=== PATIENT | female | born 1935 | race Caucasian/White ===

== ENCOUNTER → 2017-01-23 | Outpatient (CLI) | payer MEDICARE, BC ==
[~2017-01-23] MED LIST: ASCO500T25 PO; ASPI-39 PO; ATOR10TA PO; CALC1TAB PO; CARV25TA PO; DIGO250T12 PO; GABA-586 PO; GLUC100018 PO; LEVO500S PO; LEVO75CA PO; LOSA50TA6 PO; MULT-658 PO; OMEG-33 PO; VITA1CAP7 PO; WARF4TAB7 PO
--- NOTE | 2017-01-23 15:25 | RAD ---
CT of the chest and abdomen without contrast, 01/23/2017: History: Epigastric pain No oral or IV contrast was administered for this study as requested. This limits evaluation of the abdominal structures. There is mild calcific plaquing of the thoracic aorta without evidence of aneurysm. A mitral valve prosthesis is in place. There are mildly enlarged AP window and precarinal lymph nodes, unchanged since 10/06/2016. This would favor a benign etiology. There is mild pleural thickening posteriorly on both sides which is unchanged and is probably due to scarring. There are a few scattered parenchymal scars. No pulmonary mass or significant consolidation is seen. There appears to be a trace amount of pleural fluid in the posterior gutters. The unopacified liver is unremarkable. No gallbladder abnormality is seen. The pancreas is unremarkable. The spleen is of normal size. The kidneys show no evidence of obstruction. There is mild aortic calcific plaquing without evidence of aneurysm. No abdominal adenopathy is seen. The mesenteric vascularity appears to be somewhat congested. Colonic diverticula are identified, most numerous in the sigmoid and descending colon. The pelvis was not completely included on these abdominal scans. No free fluid or free air is evident in the abdomen. Mild to moderate scattered degenerative changes are present in the spine. IMPRESSION: 1. Stable mild mediastinal adenopathy. 2. Bilateral pleural/parenchymal scarring. 3. Trace amount of bilateral pleural fluid. 4. Colonic diverticulosis. PQRS Compliance Statement: One or more of the following individualized dose reduction techniques were utilized for this examination: 1. Automated exposure control 2. Adjustment of the mA and/or kV according to patient size 3. Use of iterative reconstruction technique
== END | disposition home or self-care (01) ==
LOC: CT 13:43
PROVIDERS: ATTEND Family Medicine
DX: K57.30 Diverticulosis of large intestine without perforation or abscess without bleeding (principal); J98.4 Other disorders of lung; R10.13 Epigastric pain
CPT/HCPCS: 71250; 74150

== ENCOUNTER → 2017-02-18 | Outpatient (CLI) | payer MEDICARE, BC ==
--- NOTE | 2017-02-18 12:39 | RAD ---
Radionuclide gastric emptying study, 02/18/2017: History: Epigastric pain, gastroparesis The study was performed utilizing a solid test meal radiolabeled with 2.2 mCi of technetium 99m sulfur colloid. The time to half emptying of the test meal from the patient's stomach was calculated at 85 minutes. A normal T1/2 is 60 minutes +/- 30 minutes. IMPRESSION: Normal gastric emptying time
== END | disposition home or self-care (01) ==
LOC: NM 09:35
PROVIDERS: ATTEND Internal Medicine Gastroenterology
DX: K31.84 Gastroparesis (principal); R10.13 Epigastric pain
CPT/HCPCS: 78264; A9541

== ENCOUNTER → 2017-02-23 | Outpatient (CLI) | payer MEDICARE, BC ==
[~2017-02-23] MED LIST changes: +ASCO-72 PO; -ASCO500T25 PO; +IOHEXOL 300 MG/ML 75 ML VIAL. IV ONE
[2017-02-23 09:42] LABS: CREATININE 0.8 mg/dL (0.6-1.0); GFR 68.8
--- NOTE | 2017-02-23 10:55 | RAD ---
Indication: Epigastric pain. Axial imaging through the abdomen and pelvis was performed after the administration of intravenous contrast and utilizing the CT angiography protocol. Multiplanar, 3-D and MIP reformations were also performed. The lung bases are clear. The liver and gallbladder are unremarkable. The pancreas and spleen are unremarkable. No adrenal mass is detected. The kidneys are unremarkable. The aorta is normal caliber. There are calcified plaques throughout the aorta. The origins to the celiac and SMA are widely patent. The AMY is patent. The renal arteries are patent. Both common and external iliac arteries are patent. No free fluid is identified. There is some mild circumferential wall thickening involving the descending colon near the junction with the sigmoid with surrounding inflammation. Findings are suspicious for acute diverticulitis. There is significant diverticular disease of the sigmoid colon as well. No fluid collection or abscess is identified. No bowel obstruction is seen. The bladder is unremarkable. Impression: Findings suggestive of acute diverticulitis at the junction of the descending colon and sigmoid. There is circumferential wall thickening at this location. Underlying mass cannot be entirely excluded and endoscopy may be useful after course of therapy. No abscess formation or bowel obstruction is identified. PQRS Compliance Statement: One or more of the following individualized dose reduction techniques were utilized for this examination: 1. Automated exposure control 2. Adjustment of the mA and/or kV according to patient size 3. Use of iterative reconstruction technique
== END | disposition home or self-care (01) ==
LOC: CT 08:51
PROVIDERS: ATTEND Internal Medicine Gastroenterology
DX: R10.13 Epigastric pain (principal)
CPT/HCPCS: 36415; 74177; 82565; 84520; Q9967

== ENCOUNTER → 2017-05-22 | Outpatient (CLI) | payer MEDICARE, BC ==
[~2017-05-22] MED LIST changes: -IOHEXOL 300 MG/ML 75 ML VIAL. IV ONE
--- NOTE | 2017-05-22 10:43 | RAD ---
DATE: 05/22/2017 EXAM: MAMMO RAIN SCREENING BILATERAL HISTORY: Routine screening COMPARISON: 05/19/2016 This study was interpreted with the benefit of Computerized Aided Detection (CAD). The breast parenchyma shows scattered fibroglandular densities. Breast parenchyma level B. FINDINGS: 2-D and 3-D tomosynthesis imaging was performed in CC and MLO projections. No new or enlarging breast densities are seen. Benign type calcifications are present. No suspicious microcalcifications have developed. IMPRESSION: Stable mammograms without evidence of malignancy. BI-RADS CATEGORY: 2 BENIGN FINDING(S) RECOMMENDED FOLLOW-UP: 12M 12 MONTH FOLLOW-UP PQRS compliance statement: Patient information was entered into a reminder system with a target due date for the next mammogram. Mammography is a sensitive method for finding small breast cancers, but it does not detect them all and is not a substitute for careful clinical examination. A negative mammogram does not negate a clinically suspicious finding and should not result in delay in biopsying a clinically suspicious abnormality. "Our facility is accredited by the [employer] Mammography Program."
== END | disposition home or self-care (01) ==
LOC: MAMMO 07:45
PROVIDERS: ATTEND Family Medicine
DX: Z12.31 Encounter for screening mammogram for malignant neoplasm of breast (principal)
CPT/HCPCS: 77063; G0202; 77067

== ENCOUNTER 2017-06-22 12:50 | Emergency (ER) | payer MEDICARE, BC ==
[~2017-06-22] VITALS: Ht 170.2 cm; Wt 67.1 kg
[2017-06-22] MEDS ORDERED: IV NORMAL SALINE 500ML 500 ML ONE (13:04)
[2017-06-22] MEDS ORDERED: MORPHINE SULFATE 4 MG/ML DISP.SYRIN. IV ONE (13:15)
[2017-06-22] MEDS ORDERED: IV NORMAL SALINE 500ML 500 ML IV ONE (13:15)
--- NOTE | 2017-06-22 13:17 | PHYS DOC ---
Past History Past Medical History: A-Fib, Arrhythmia, Constipation, Diverticulitis, Diabetes , GERD, High Cholesterol, Heart Disease, Hypertension, Hypothyroid Past Surgical History: Hysterectomy, Other Smoking: Non-smoker Alcohol Use: None Drug Use: None Adult General Chief Complaint Chief Complaint: ABDOMINAL PAIN HPI HPI Patient is a 81-year-old presents complaints of upper abdominal pain has been going on for 2 days and is progressively getting worse. Today got worse after eating. She's had occasional pains in the past but not this severe. She denies any vomiting, abdominal distention, rashes, chills, diarrhea or UTI symptoms. Patient denies any sick contacts or trauma. Review of Systems Review of Systems Constitutional: Denies fever or chills [] HENT: Denies nasal congestion or sore throat [] Respiratory: Denies cough or shortness of breath [] Cardiovascular: No chest pain GI: Denies nausea, vomiting, bloody stools or diarrhea. Yes to upper abdominal pain : Denies dysuria or hematuria [] Musculoskeletal: Denies back pain or joint pain [] Integument: Denies rash or skin lesions [] Neurologic: Denies headache, focal weakness or sensory changes [] Current Medications Current Medications Current Medications Medications (Trade) Dose Ordered Sig/Monty Start Time Stop Time Status Last Admin Dose Admin Morphine Sulfate (Morphine 4mg Syringe) 4 mg 1X ONCE 06/22/17 13:15 06/22/17 13:16 UNV Sodium Chloride 500 ml @ As Directed STK-MED ONCE 06/22/17 13:04 06/22/17 13:05 DC Allergies Allergies Allergies Coded Allergies Type Severity Reaction Last Updated Verified aspartame Allergy Intermediate 02/27/14 Yes latex Allergy Intermediate 02/26/14 Yes sulfur Allergy Intermediate 02/26/14 Yes titanium Allergy Intermediate 02/26/14 Yes Uncoded Allergies Type Severity Reaction Last Updated Verified TAPE Allergy Intermediate 02/26/14 Physical Exam Physical Exam Constitutional: Well developed, well nourished, mild distress, non-toxic appearance. [] HENT: Normocephalic, atraumatic, bilateral external ears normal, oropharynx dry , no oral exudates, nose normal. [] Eyes: P EOMI, conjunctiva normal, no discharge. [] Neck: Normal range of motion, no tenderness, supple, no stridor. No JVD, no LAD , no meningeal signs Cardiovascular:Heart rate regular rhythm, no murmur, equal pulses, normal perfusion Lungs & Thorax: Bilateral breath sounds clear to auscultation, no tachypnea Abdomen: Bowel sounds normal, soft, no masses, no pulsatile masses. Epigastric and right upper quadrant tenderness to palpation without guarding or rebound Skin: Warm, dry, no erythema, no rash. [] Back: No tenderness, no CVA tenderness. [] Extremities: No tenderness, no cyanosis, no DVT, ROM intact, no edema. [] Neurologic: Alert and oriented X 3, normal motor function, no focal deficits noted. [] Psychologic: Affect normal, judgement normal, mood normal. [] EKG EKG 1305 atrial fribrillation, no stemi, 65[] Radiology/Procedures Radiology/Procedures CT and US reports reviewed and copy of both given to the pt to discuss with her doctor. The possible need for referral to GI and urology has been discussed with pt and family who were present. All agree to follow up as directed.[] Course & Med Decision Making Course & Med Decision Making Pertinent Labs and Imaging studies reviewed. (See chart for details) pt states she has taken augmentin before 151 pt able to ambulate to bathroom [] Dragon Disclaimer Dragon Disclaimer This chart was dictated in whole or in part using Voice Recognition software in a busy, high-work load, and often noisy Emergency Department environment. It may contain unintended and wholly unrecognized errors or omissions. Departure Departure: Impression: Primary Impression: Abdominal pain Additional Impressions: Diverticulitis Hematuria Disposition: 01 HOME, SELF-CARE Condition: STABLE Referrals: SAUL ANN (PCP) Please follow with your doctor for recheck and reevaluation in 2-4 days. Please discussed the results of the CT scan and the ultrasound with your doctor. You may a referral to a GI doctor for endoscopy to rule out a mass. Also if your hematuria does not resolve you will need a referral to a urologist for a scope of urinary bladder Patient Instructions: Abdominal Pain (Nonspecific), Diverticulitis, Hematuria, Adult Scripts Amoxicillin/Potassium Clav (AUGMENTIN 500-125 TABLET) 1 Each Tablet 1 TAB PO BID, #14 TAB Prov: Earl BO MD 06/22/17 Hydrocodone Bit/Acetaminophen (NORCO 5-325 TABLET) 1 Each Tablet 1 TAB PO PRN Q6HRS Y for PAIN for 5 Days, #14 TAB 0 Refills Prov: Earl BO MD 06/22/17 Problem Qualifiers Earl BO MD Jun 22, 2017 13:17
[2017-06-22 13:40] LABS: BASO % 0 % (0-3); EOS # 0.1 x10^3/uL (0.0-0.7); EOS % 1 % (0-3); HEMATOCRIT 39.9 % (36.0-47.0); HEMOGLOBIN 13.4 g/dL (12.0-15.5); LYMPH # 1.2 x10^3/uL (1.0-4.8); LYMPH % 20 % (24-48); MEAN CORPUSCULAR HEMOGLOBIN 31 pg (25-35); MEAN CORPUSCULAR HGB CONC 34 g/dL (31-37); MEAN CORPUSCULAR VOLUME 91 fL (79-100); MONO # 0.4 x10^3/uL (0.0-1.1); MONO % 7 % (0-9); NEUT # 4.4 x10^3uL (1.8-7.7); NEUT % 71 % (31-73); PLATELET COUNT 179 x10^3/uL (140-400); RED BLOOD COUNT 4.38 x10^6/uL (3.50-5.40); RED CELL DISTRIBUTION WIDTH 13.5 % (11.5-14.5); WHITE BLOOD COUNT 6.1 x10^3/uL (4.0-11.0)
[2017-06-22 13:53] LABS: ALBUMIN 3.3 g/dL (3.4-5.0); ALBUMIN/GLOBULIN RATIO 0.8 (1.0-1.7); CALCIUM 9.5 mg/dL (8.5-10.1); CREATININE 0.8 mg/dL (0.6-1.0); GFR 68.8; POTASSIUM 4.1 mmol/L (3.5-5.1); TOTAL BILIRUBIN 1.3 mg/dL (0.2-1.0); TOTAL PROTEIN 7.4 g/dL (6.4-8.2)
--- NOTE | 2017-06-22 14:07 | RAD ---
Examination: CT of the abdomen pelvis without contrast History: History of right upper quadrant abdominal pain. Comparison: 02/23/2017. Technique: Axial CT images of the abdomen pelvis were performed with contrast. Coronal and sagittal reformats are performed PQRS Compliance Statement: One or more of the following individualized dose reduction techniques were utilized for this examination: 1. Automated exposure control 2. Adjustment of the mA and/or kV according to patient size 3. Use of iterative reconstruction technique Findings: The visualized bibasal lungs demonstrate minimal atelectasis. No evidence of free air identified in the abdomen. The evaluation of the solid organs is limited due to lack of IV contrast. The evaluation of the of bowel is limited due to lack of oral contrast. The visualized noncontrasted liver, spleen, adrenals grossly appears unremarkable. Gallbladder is mildly distended. Tiny gallstone or sludge identified in the proximal gallbladder. The stomach is mildly distended. The visualized pancreas grossly appears unremarkable few fluid distended small bowel loops identified in the lower abdomen and pelvis region. Small amount of free fluid identified in the pelvis. Feces and gas noted throughout the colon. Multiple numerous colonic diverticula identified throughout the colon. There is moderate inflammatory fat stranding identified around the mid portion of the ascending colon with underlying thickened appearance of the mid colonic wall. Tiny appendix visualized on series 2 image #107. No evidence of intrarenal collecting system calculi identified. Mild prominent bilateral extrarenal pelvis. Tiny 3 mm hypodensity identified in the midpole of the right kidney likely a tiny hyperdense cyst. Urinary bladder is mildly distended. Moderate degenerative changes thoracic spine. Right L5 spondylolysis. Moderate intervertebral disc bulging identified at L4-L5 and L5-S1 vertebral levels. Small right pleural effusion. Impression: 1. Moderate inflammatory fat stranding identified around the mid portion of the ascending colon with underlying thickened appearance of the mid ascending colonic wall. Most likely acute diverticulitis. Underlying mass is not completely excluded. 2. Numerous colonic diverticula. 3. Small amount of free fluid identified in the pelvis. 4. Tiny gallstone or sludge identified in the proximal gallbladder. 5. Few nonspecific fluid distended small bowel loops identified in the lower abdomen and pelvis.
[2017-06-22 14:22] LABS: BACTERIA,URINE FEW /HPF (0-FEW); BILIRUBIN,URINE NEG (NEG); CLARITY,URINE HAZY; COLOR,URINE YELLOW; GLUCOSE,URINE NEG (NEG); NITRITE,URINE NEG (NEG); SQUAMOUS EPITHELIAL CELL,UR OCC /LPF; UROBILINOGEN,URINE 0.2 mg/dL (0.2 mg/dL); WBC,URINE OCC /HPF (0-4)
--- NOTE | 2017-06-22 14:42 | RAD ---
EXAM: CHEST 1 VIEW History: Right upper quadrant pain COMPARISON: 09/08/2011 TECHNIQUE: Single portable radiograph of the chest FINDINGS: The cardiac silhouette is unremarkable. The lungs are clear bilaterally. The costophrenic sulci are clear and well demarcated. Median sternotomy wires and cardiac valve replacement similar to prior exam IMPRESSION: No radiographic evidence of an acute cardiopulmonary process.
--- NOTE | 2017-06-22 14:48 | RAD ---
Examination: Ultrasound right upper quadrant History: History of epigastric pain Comparison: None available Findings: The pancreas is not well visualized due to bowel gas. The echogenicity of the liver grossly appears unremarkable. The common bile duct measures 6.3 mm in transverse dimension. The gallbladder wall thickness measures 2.1 mm. Minimal echogenicity identified in the proximal gallbladder likely sludge. The right kidney measures 10.9 cm. Impression: Small amount of echogenic material identified in the proximal gallbladder likely sludge. Minimal prominent common bile duct.
[2017-06-22] MEDS ORDERED: HYDR-971 PO (15:16)
[2017-06-22] MEDS ORDERED: AMOX1TAB58 PO (15:16)
[2017-06-22 15:33] VITALS: BP 155/65
--- NOTE | 2017-06-23 01:12 | EKG ---
[address] [address] Test Date: 2017-06-22 Test Time: 13:05:59 Pat Name: JESUS LEON Department: Room: Gender: F Milk Driver: : 1935 Requested By: Earl BO Order Number: [id number] Reading MD: Richard Villa Measurements Intervals [place] Rate: 65 P: MS: QRS: 28 QRSD: 104 T: 62 QT: 396 QTc: 413 Interpretive Statements JUNCTIONAL RHYTHM KAIN-SEPTAL INFARCT Electronically Signed On 06-23-2017 10:24:39 CDT by Richard Villa
== END 2017-06-22 15:38 | disposition home or self-care (01) ==
LOC: ER 12:50
DX: K57.92 Diverticulitis of intestine, part unspecified, without perforation or abscess without bleeding (principal); R31.9 Hematuria, unspecified; E03.9 Hypothyroidism, unspecified; E11.9 Type 2 diabetes mellitus without complications; I48.91 Unspecified atrial fibrillation; K21.9 Gastro-esophageal reflux disease without esophagitis; E78.00 Pure hypercholesterolemia, unspecified; I11.9 Hypertensive heart disease without heart failure; Z88.2 Allergy status to sulfonamides; Z88.8 Allergy status to other drugs, medicaments and biological substances; Z91.040 Latex allergy status
CPT/HCPCS: 36415; 71010; 74176; 76705; 80053; 81001; 83690; 84484; 85025; 87086; 93005; 96361; 96374; 99285; J2270; J7040

== ENCOUNTER 2017-06-22 21:25 | Emergency (ER) | payer MEDICARE, BC ==
[~2017-06-22] VITALS: Ht 170.2 cm; Wt 67.1 kg
[~2017-06-22 21:25] MED LIST changes: +AMOX1TAB58 PO; +HYDR-971 PO
--- NOTE | 2017-06-22 21:32 | ED.ADGEN ---
Past History Past Medical History: A-Fib, Arrhythmia, Constipation, Diverticulitis, Diabetes , GERD, High Cholesterol, Heart Disease, Hypertension, Hypothyroid Past Surgical History: Hysterectomy, Oophorectomy, Other Smoking: Non-smoker Alcohol Use: Rarely Drug Use: None Adult General Chief Complaint Chief Complaint " .. I ve gotten worse.. I was here this morning..." HPI HPI Patient is a 81 year old female who presents with above hx and complaints of increasing Rt upper quadrant pain with movement or any activity. She is the mother in - law of a [facility] nurse who has been caring for pt. at home. Pt. seen earlier in day at [facility] for same symptoms, US showed thicken gall bladder, sludge, mildly prominent common duct. Pt. Ct showed moderate inflammatory fat stranding in traverse & ascending colon, thicken wall, suspect diverticulitis. Mass not excluded. Pt. labs initially unremarkable. Pt. had Colonoscopy [facility]- Dr. Sutton in 2011- reportedly no significant finding and repeat exam recommend for 2017. Dose have 1 degree relatives with colon cancer and other family members with Dx. of cancer. Pt. has extensive medical hx. see attached summary. Discussed pt. presentation, testing and tx. plan with abalone diver Dr. Reis, advised have pt. transfer to [facility] for further in pt. tx. and IV antibiotics. Pt. to keep NPO until eval. later today. Pt. may need surgery for Biliary Colic , and colon exam / surgery if no improvement of diverticulitis. Pt. last ate some chicken soup and crackers at 1800 hrs. Pt. prior hysterectomy and oophorectomy , bladder lift, H. Hernia Lap Nissian , abdomen surgeries . Patient's had additional surgeries to repair heart values , MAZE for Afib., Back L4, 5, Lens implants /cataract, ankle, Lt ear, bunions, and breast bx. , Review of Systems Review of Systems Constitutional: Subjective fever or chills [] Eyes: Denies change in visual acuity, redness, or eye pain [] HENT: Denies nasal congestion or sore throat [] Respiratory: Denies cough or shortness of breath [] Cardiovascular: No additional information not addressed in HPI [] GI: Complaints of abdominal pain, nausea, vomiting, biliary colic and diverticulitis by earlier US and CT : Denies dysuria or hematuria [] Musculoskeletal: Denies back pain or joint pain [] Integument: Denies rash or skin lesions [] Neurologic: Denies headache, focal weakness or sensory changes [] Endocrine: Denies polyuria or polydipsia [] Family History Family History Colon Cancer Current Medications Current Medications Current Medications Medications (Trade) Dose Ordered Sig/Monty Start Time Stop Time Status Last Admin Dose Admin Ceftriaxone Sodium 1 gm/ Sodium Chloride 50 ml @ 100 mls/hr 1X ONCE 06/22/17 22:30 06/22/17 23:00 DC 06/22/17 22:30 100 MLS/HR Ceftriaxone Sodium (Rocephin) 1 gm STK-MED ONCE 06/22/17 22:21 06/22/17 22:22 DC Famotidine (Pepcid) 20 mg 1X ONCE 06/22/17 22:00 06/22/17 22:01 DC 06/22/17 22:00 20 MG Fentanyl Citrate (Fentanyl 2ml Vial) 50 mcg 1X ONCE 06/22/17 23:30 06/22/17 23:34 DC 06/22/17 23:15 50 MCG Fentanyl Citrate (Fentanyl 5ml Vial) 50 mcg 1X ONCE 06/22/17 23:30 06/22/17 23:32 DC Info (Do NOT chart on this entry -- for MONITORING) 1 each PRN DAILY PRN 06/22/17 22:00 06/22/17 23:58 DC Iohexol (Omnipaque 240 Mg/ml) 30 ml 1X ONCE 06/22/17 22:00 06/22/17 22:01 DC Iohexol (Omnipaque 300 Mg/ml) 75 ml 1X ONCE 06/22/17 22:00 06/22/17 22:01 DC Metronidazole 100 ml @ 200 mls/hr 1X ONCE 06/22/17 22:30 06/22/17 23:00 DC 06/22/17 22:25 200 MLS/HR Ondansetron HCl (Zofran) 4 mg 1X ONCE 06/22/17 23:30 06/22/17 23:32 DC 06/22/17 23:21 4 MG Sodium Chloride 50 ml @ As Directed STK-MED ONCE 06/22/17 22:20 06/22/17 22:21 DC Allergies Allergies Allergies Coded Allergies Type Severity Reaction Last Updated Verified Penicillins Allergy Intermediate 06/22/17 Yes adhesive tape Allergy Intermediate 06/22/17 Yes aspartame Allergy Intermediate 02/27/14 Yes latex Allergy Intermediate 02/26/14 Yes metformin Allergy Intermediate 06/22/17 Yes sulfur Allergy Intermediate 02/26/14 Yes titanium Allergy Intermediate 02/26/14 Yes Physical Exam Physical Exam Constitutional: In acute distress, ill in appearance. [] HENT: Normocephalic, atraumatic, bilateral external ears normal, oropharynx moist, no oral exudates, nose normal. Glasses. Eyes: PERRLA, EOMI, conjunctiva normal, no discharge. [] Neck: Normal range of motion, no tenderness, supple, no stridor. [] Cardiovascular:Bradycaria Heart rate regular rhythm, no murmur PMI Lt. Lungs & Thorax: Bilateral breath sounds clear to auscultation [] Abdomen: Bowel sounds decreases, soft, rt. upper and mid abdomen tenderness, no masses, no pulsatile masses. + rebound and guarding. Skin: Warm, dry, no erythema, no rash. [] Back: No tenderness, no CVA tenderness. [] Extremities: No tenderness, no cyanosis, no clubbing, ROM intact, no edema. + Re bound to Rt. upper quadrant with heel tap to Rt. upper quadrant. Neurologic: Alert and oriented X 3, normal motor function, normal sensory function, no focal deficits noted. [] Psychologic: Affect anxious judgement normal, mood normal. [] Current Patient Data Vital Signs Vital Signs Date Time Temp Pulse Resp B/P (MAP) Pulse Ox O2 Delivery O2 Flow Rate FiO2 06/22/17 23:00 58 165/85 (111) 06/22/17 22:39 20 95 Room Air 06/22/17 21:40 97.6 Lab Results Laboratory Tests Test 06/22/17 22:00 White Blood Count 6.5 x10^3/uL (4.0-11.0) Red Blood Count 4.40 x10^6/uL (3.50-5.40) Hemoglobin 13.4 g/dL (12.0-15.5) Hematocrit 40.5 % (36.0-47.0) Mean Corpuscular Volume 92 fL (79-100) Mean Corpuscular Hemoglobin 31 pg (25-35) Mean Corpuscular Hemoglobin Concent 33 g/dL (31-37) Red Cell Distribution Width 13.6 % (11.5-14.5) Platelet Count 177 x10^3/uL (140-400) Neutrophils (%) (Auto) 76 % (31-73) H Lymphocytes (%) (Auto) 17 % (24-48) L Monocytes (%) (Auto) 6 % (0-9) Eosinophils (%) (Auto) 1 % (0-3) Basophils (%) (Auto) 0 % (0-3) Neutrophils # (Auto) 4.9 x10^3uL (1.8-7.7) Lymphocytes # (Auto) 1.1 x10^3/uL (1.0-4.8) Monocytes # (Auto) 0.4 x10^3/uL (0.0-1.1) Eosinophils # (Auto) 0.1 x10^3/uL (0.0-0.7) Basophils # (Auto) 0.0 x10^3/uL (0.0-0.2) Prothrombin Time 18.3 SEC (9.4-11.4) H Prothrombin Time INR 1.8 (0.9-1.1) H PTT 30 SEC (23-33) Sodium Level 137 mmol/L (136-145) Potassium Level 4.8 mmol/L (3.5-5.1) Chloride Level 103 mmol/L (98-107) Carbon Dioxide Level 27 mmol/L (21-32) Anion Gap 7 (6-14) Blood Urea Nitrogen 17 mg/dL (7-20) Creatinine 1.0 mg/dL (0.6-1.0) Estimated GFR (Cockcroft-Gault) 53.2 Glucose Level 174 mg/dL (70-99) H Calcium Level 9.3 mg/dL (8.5-10.1) Total Bilirubin 1.2 mg/dL (0.2-1.0) H Direct Bilirubin 0.3 mg/dL (0.0-0.2) H Aspartate Amino Transferase (AST) 26 U/L (15-37) Alanine Aminotransferase (ALT) 38 U/L (14-59) Alkaline Phosphatase 66 U/L (46-116) Troponin I Quantitative < 0.017 ng/mL (0-0.055) Total Protein 7.6 g/dL (6.4-8.2) Albumin 3.4 g/dL (3.4-5.0) Amylase Level 220 U/L (25-115) H Lipase 665 U/L (73-393) H EKG EKG My interpretation of EKG shows A. fib with ventricular rate of 62. Right axis deviation as well as nonspecific contour. No findings of STEMI. Radiology/Procedures Radiology/Procedures Reviewed CTs and ultrasound from earlier in the day[] Course & Med Decision Making Course & Med Decision Making Pertinent Labs and Imaging studies reviewed. (See chart for details) Will start IV antibiotics for coverage diverticulitis. We'll arrange transferred to [facility] under care of Dr. Reis. Possible surgery and or GI consult. [] Final Impression Final Impression 1. Abdomen Pain[] 2. Diverticulitis ascending and transverse colon 3. Biliary colic- Sludge/Distended 4. Out pt. Treatment Failure- for 1,2, 3. 5. Elevated Amylase 220 and Lipase 665 6. Glucose Elevated. Problems: Dragon Disclaimer Dragon Disclaimer This electronic medical record was generated, in whole or in part, using a voice recognition dictation system. CHER ORTIZ MD Jun 22, 2017 21:32
[2017-06-22] MEDS ORDERED: FAMOTIDINE 20 MG/2 ML VIAL IVP ONE (22:00)
[2017-06-22] MEDS ORDERED: ONDANSETRON PF 4 MG/2 ML VIAL. IV ONE ×2 (22:00→23:30)
[2017-06-22] MEDS ORDERED: IOHEXOL 300 MG/ML 75 ML VIAL. IV ONE (22:00)
[2017-06-22] MEDS ORDERED: IOHEXOL 240 MG/ML 50ML VIAL. PO ONE (22:00)
[2017-06-22] MEDS ORDERED: CONTRAST GIVEN MC PRN (22:00)
[2017-06-22] MEDS ORDERED: IV NORMAL SALINE 1,000ML 1,000 ML IV SCH (22:00)
[2017-06-22] MEDS ORDERED: fentaNYL PF 100 MCG/2 ML VIAL IV ONE ×2 (22:00→23:30)
[2017-06-22] MEDS ORDERED: IV NORMAL SALINE 50ML 50 ML ONE (22:20)
[2017-06-22] MEDS ORDERED: cefTRIAXone SODIUM 1 GM VIAL IV ONE (22:21)
[2017-06-22 22:24] LABS: BASO % 0 % (0-3); EOS # 0.1 x10^3/uL (0.0-0.7); EOS % 1 % (0-3); HEMATOCRIT 40.5 % (36.0-47.0); HEMOGLOBIN 13.4 g/dL (12.0-15.5); LYMPH # 1.1 x10^3/uL (1.0-4.8); LYMPH % 17 % (24-48); MEAN CORPUSCULAR HEMOGLOBIN 31 pg (25-35); MEAN CORPUSCULAR HGB CONC 33 g/dL (31-37); MEAN CORPUSCULAR VOLUME 92 fL (79-100); MONO # 0.4 x10^3/uL (0.0-1.1); MONO % 6 % (0-9); NEUT # 4.9 x10^3uL (1.8-7.7); NEUT % 76 % (31-73); PLATELET COUNT 177 x10^3/uL (140-400); RED CELL DISTRIBUTION WIDTH 13.6 % (11.5-14.5); WHITE BLOOD COUNT 6.5 x10^3/uL (4.0-11.0)
[2017-06-22 22:34] LABS: ALBUMIN 3.4 g/dL (3.4-5.0); CALCIUM 9.3 mg/dL (8.5-10.1); DIRECT BILIRUBIN 0.3 mg/dL (0.0-0.2); GFR 53.2; POTASSIUM 4.8 mmol/L (3.5-5.1); TOTAL BILIRUBIN 1.2 mg/dL (0.2-1.0); TOTAL PROTEIN 7.6 g/dL (6.4-8.2)
[2017-06-22 23:00] VITALS: BP 165/85
[2017-06-22] MEDS: fentaNYL PF 250 MCG/5 ML VIAL IV ONE ×2 (23:21→23:25)
--- NOTE | 2017-06-23 01:11 | EKG ---
[address] [address] Test Date: 2017-06-22 Test Time: 21:51:33 Pat Name: JESSU LEON Department: Room: Gender: F Roll Icer Machine: : 1935 Requested By: CHER ORTIZ Order Number: [id number] Reading MD: Richard Villa Measurements Intervals [place] Rate: 62 P: OR: QRS: 155 QRSD: 108 T: 144 QT: 426 QTc: 435 Interpretive Statements SR LIMB LEAD MISPLACEMENT NON-SPECIFIC ST/T CHANGES Electronically Signed On 06-23-2017 10:25:00 CDT by Richard Villa
== END 2017-06-22 23:43 | disposition short-term general hospital (02) ==
LOC: ER 21:25
DX: K57.92 Diverticulitis of intestine, part unspecified, without perforation or abscess without bleeding (principal); K80.50 Calculus of bile duct without cholangitis or cholecystitis without obstruction; R73.02 Impaired glucose tolerance (oral); R74.8 Abnormal levels of other serum enzymes; I48.91 Unspecified atrial fibrillation; K21.9 Gastro-esophageal reflux disease without esophagitis; E03.9 Hypothyroidism, unspecified; E78.00 Pure hypercholesterolemia, unspecified; I11.9 Hypertensive heart disease without heart failure; E11.9 Type 2 diabetes mellitus without complications; Z88.0 Allergy status to penicillin; Z88.2 Allergy status to sulfonamides; Z88.8 Allergy status to other drugs, medicaments and biological substances; Z91.040 Latex allergy status
CPT/HCPCS: 36415; 80048; 80076; 82150; 83690; 84484; 85025; 85610; 85730; 93005; 96365; 96368; 96375; 96376; 99285; J0696; J2405; J3010; J3490; S0028; J7030

== ENCOUNTER 2017-07-22 15:03 | Emergency (ER) | payer MEDICARE, BC ==
[~2017-07-22] VITALS: Ht 170.2 cm; Wt 54.4 kg
[2017-07-22 15:59] LABS: BASO % 1 % (0-3); EOS % 1 % (0-3); HEMATOCRIT 36.9 % (36.0-47.0); HEMOGLOBIN 12.6 g/dL (12.0-15.5); LYMPH # 0.8 x10^3/uL (1.0-4.8); LYMPH % 15 % (24-48); MEAN CORPUSCULAR HEMOGLOBIN 31 pg (25-35); MEAN CORPUSCULAR HGB CONC 34 g/dL (31-37); MEAN CORPUSCULAR VOLUME 92 fL (79-100); MONO # 0.4 x10^3/uL (0.0-1.1); MONO % 7 % (0-9); NEUT # 4.2 x10^3uL (1.8-7.7); NEUT % 77 % (31-73); PLATELET COUNT 169 x10^3/uL (140-400); RED CELL DISTRIBUTION WIDTH 14.3 % (11.5-14.5); WHITE BLOOD COUNT 5.4 x10^3/uL (4.0-11.0)
--- NOTE | 2017-07-22 16:14 | PHYS DOC ---
Past History Past Medical History: A-Fib, Arrhythmia, Constipation, Diverticulitis, Diabetes , GERD, High Cholesterol, Heart Disease, Hypertension, Hypothyroid Past Surgical History: Hysterectomy, Oophorectomy, Other Smoking: Non-smoker Alcohol Use: Rarely Drug Use: None Adult General Chief Complaint Chief Complaint: ABDOMINAL PAIN HPI HPI 81-year-old female presenting to the emergency department today with watery diarrhea. She complains of having 2 soft stools today. Her diarrhea is been going on for about 3 days. She reports abdominal pain in the left lower quadrant which is sharp shooting nonradiating mild and without alleviating factors. The patient reports that it is worse when she presses on her belly. She has a history of diverticulosis and was treated for diverticulitis about 2- 3 weeks ago at [facility]. She denies vomiting but has felt nauseous intermittently. She denies fevers or chills. She reports having one episode of a red color in her stool but denies having lots of blood. She does not believe that the red color was blood. Review of systems is negative for fevers chills chest pain shortness of breath confusion cyanosis lethargy. She denies vision changes numbness weakness or tingling. All other review of systems is negative unless otherwise noted in history of present illness. ED course: 81-year-old female presenting with left lower quadrant abdominal pain. Vital signs afebrile with a normal heart rate saturating well on room air. Pertinent physical examination findings show a soft mildly tender abdomen in the left lower quadrant. There is no rebound tenderness or guarding present. Negative McBurney's point. Negative An sign. Lungs are clear to auscultation bilaterally. Otherwise the remainder the patient's examination is unremarkable. Blood work obtained. IV fluids nausea and pain medication administered. CT the abdomen pelvis obtained and neg. mildly thickened colon on CT Review of Systems Review of Systems SEE ABOVE. Allergies Allergies Allergies Coded Allergies Type Severity Reaction Last Updated Verified Penicillins Allergy Intermediate 06/22/17 Yes adhesive tape Allergy Intermediate 06/22/17 Yes aspartame Allergy Intermediate 02/27/14 Yes latex Allergy Intermediate 02/26/14 Yes metformin Allergy Intermediate 06/22/17 Yes sulfur Allergy Intermediate 02/26/14 Yes titanium Allergy Intermediate 02/26/14 Yes Physical Exam Physical Exam SEE ABOVE Constitutional: Well developed, well nourished, no acute distress, non-toxic appearance. [] HENT: Normocephalic, atraumatic, bilateral external ears normal, oropharynx moist, no oral exudates, nose normal. [] Eyes: PERRLA, EOMI, conjunctiva normal, no discharge. [] Neck: Normal range of motion, no tenderness, supple, no stridor. [] Cardiovascular:Heart rate regular rhythm, no murmur [] Lungs & Thorax: Bilateral breath sounds clear to auscultation [] Abdomen: SEE ABOVE Skin: Warm, dry, no erythema, no rash. [] Back: No tenderness, no CVA tenderness. [] Extremities: No tenderness, no cyanosis, no clubbing, ROM intact, no edema. [] Neurologic: Alert and oriented X 3, normal motor function, normal sensory function, no focal deficits noted. [] Psychologic: Affect normal, judgement normal, mood normal. [] Current Patient Data Vital Signs Vital Signs Date Time Temp Pulse Resp B/P (MAP) Pulse Ox O2 Delivery O2 Flow Rate FiO2 07/22/17 15:58 71 18 158/68 (98) 96 Room Air 07/22/17 15:26 97.8 Lab Results Laboratory Tests Test 07/22/17 15:45 White Blood Count 5.4 x10^3/uL (4.0-11.0) Red Blood Count 4.00 x10^6/uL (3.50-5.40) Hemoglobin 12.6 g/dL (12.0-15.5) Hematocrit 36.9 % (36.0-47.0) Mean Corpuscular Volume 92 fL (79-100) Mean Corpuscular Hemoglobin 31 pg (25-35) Mean Corpuscular Hemoglobin Concent 34 g/dL (31-37) Red Cell Distribution Width 14.3 % (11.5-14.5) Platelet Count 169 x10^3/uL (140-400) Neutrophils (%) (Auto) 77 % (31-73) H Lymphocytes (%) (Auto) 15 % (24-48) L Monocytes (%) (Auto) 7 % (0-9) Eosinophils (%) (Auto) 1 % (0-3) Basophils (%) (Auto) 1 % (0-3) Neutrophils # (Auto) 4.2 x10^3uL (1.8-7.7) Lymphocytes # (Auto) 0.8 x10^3/uL (1.0-4.8) L Monocytes # (Auto) 0.4 x10^3/uL (0.0-1.1) Eosinophils # (Auto) 0.0 x10^3/uL (0.0-0.7) Basophils # (Auto) 0.0 x10^3/uL (0.0-0.2) EKG EKG [] Radiology/Procedures Radiology/Procedures [] Course & Med Decision Making Course & Med Decision Making Pertinent Labs and Imaging studies reviewed. (See chart for details) [] Dragon Disclaimer Dragon Disclaimer This chart was dictated in whole or in part using Voice Recognition software in a busy, high-work load, and often noisy Emergency Department environment. It may contain unintended and wholly unrecognized errors or omissions. Departure Departure: Impression: Primary Impression: Abdominal pain, left lower quadrant Disposition: HOME, SELF-CARE Condition: STABLE Referrals: SAUL ANN (PCP) Patient Instructions: Abdominal Pain Additional Instructions: Thank you for allowing us to participate in your care today. Followup with your primary care physician in 3 days if your symptoms do not improve. Call your Primary Doctor tomorrow and inform them of your visit today. If you do not have a primary care provider you can ask for a list of our primary care providers. Return to the emergency department you have any new or concerning findings. This should be evaluated by the primary care physician and any necessary consulting services for continued management within a few days after discharge. Return to emergency room if you have any new or concerning symptoms including but not limited to fever, chills, nausea, vomiting, intractable pain, any new rashes, chest pain, shortness of air, uncontrolled bleeding, difficulty breathing, and/or vision loss. Scripts Hydrocodone Bit/Acetaminophen (HYDROCODONE-APAP 5-325 ) 1 Each Tablet 1 TAB PO PRN Q6HRS Y for PAIN, #10 TAB 0 Refills Prov: AVEL ZHAO MD 07/22/17 AVEL ZHAO MD Jul 22, 2017 16:14
[2017-07-22] MEDS ORDERED: HYDROmorphone PF 1 MG/ML DISP.SYRIN IV PRN (16:15)
[2017-07-22] MEDS ORDERED: IV NORMAL SALINE 500ML 500 ML IV ONE (16:15)
[2017-07-22 16:16] LABS: CALCIUM 9.3 mg/dL (8.5-10.1); CREATININE 0.6 mg/dL (0.6-1.0); DIRECT BILIRUBIN 0.2 mg/dL (0.0-0.2); GFR 95.9; POTASSIUM 4.3 mmol/L (3.5-5.1); TOTAL BILIRUBIN 1.3 mg/dL (0.2-1.0); TOTAL PROTEIN 7.3 g/dL (6.4-8.2)
[2017-07-22 16:48] LABS: BACTERIA,URINE 0 /HPF (0-FEW); BILIRUBIN,URINE NEG (NEG); CLARITY,URINE CLEAR; COLOR,URINE YELLOW; GLUCOSE,URINE NEG (NEG); NITRITE,URINE NEG (NEG); RBC,URINE >40 /HPF (0-2); SQUAMOUS EPITHELIAL CELL,UR MANY /LPF; UROBILINOGEN,URINE 0.2 mg/dL (0.2 mg/dL)
[2017-07-22] MEDS ORDERED: ONDANSETRON PF 4 MG/2 ML VIAL. IV ONE (16:50)
[2017-07-22] MEDS ORDERED: IOHEXOL 300 MG/ML 75 ML VIAL. IV ONE (17:15)
--- NOTE | 2017-07-22 17:39 | RAD ---
CT SCAN OF THE ABDOMEN AND PELVIS WITH IV CONTRAST. History: Left lower quadrant abdominal pain Comparison: June 22, 2017. Procedure: Contiguous axial images of the abdomen and pelvis were performed after the administration of 75 cc of Omni 300 IV contrast and without oral contrast. CT Abdomen with contrast: Findings: Liver: Linear heterogeneity of the right lobe of of the liver at the dome is seen previously and could be scar Spleen: Unremarkable Pancreas: Unremarkable Adrenal Glands: Unremarkable Kidneys: Prominence the renal pelvises are seen previously and is likely extrarenal pelvises There is no mass or lymphadenopathy. There is no free air. There is no free fluid. Impression: No acute findings. End Impression CT Pelvis with Contrast: Findings: The urinary bladder appears normal. There is mild free fluid in the pelvis. The sigmoid colon is redundant and there is mild wall thickening of the sigmoid colon. There is moderate diverticulosis without surrounding inflammation. The appendix is not visualized. There is no lymphadenopathy. Impression: Mild wall thickening of the sigmoid colon is nonspecific and was seen previously and could be chronic. There is no evidence of diverticulitis. Mild free fluid in the pelvis could be minimal ascites but appears improved. PQRS Compliance Statement: One or more of the following individualized dose reduction techniques were utilized for this examination: 1. Automated exposure control 2. Adjustment of the mA and/or kV according to patient size 3. Use of iterative reconstruction technique Electronically signed by: Navneet Araya III, MD (07/22/2017 5:36 PM) [id number]
[2017-07-22] MEDS ORDERED: HYDR-2758 PO (17:59)
[2017-07-22 18:10] VITALS: BP 155/61
== END 2017-07-22 18:11 | disposition home or self-care (01) ==
LOC: ER 15:03
DX: R10.32 Left lower quadrant pain (principal); R19.7 Diarrhea, unspecified; R11.0 Nausea; I48.91 Unspecified atrial fibrillation; K21.9 Gastro-esophageal reflux disease without esophagitis; E78.00 Pure hypercholesterolemia, unspecified; E11.9 Type 2 diabetes mellitus without complications; E03.9 Hypothyroidism, unspecified; I11.9 Hypertensive heart disease without heart failure; Z90.710 Acquired absence of both cervix and uterus; Z90.722 Acquired absence of ovaries, bilateral; Z88.0 Allergy status to penicillin; Z88.2 Allergy status to sulfonamides; Z88.8 Allergy status to other drugs, medicaments and biological substances; Z91.040 Latex allergy status
CPT/HCPCS: 36415; 74177; 80048; 80076; 81001; 83605; 83690; 84484; 85025; 87086; 96360; 99285; J7040; Q9967

== ENCOUNTER 2017-09-12 09:20 | Emergency (ER) | payer MEDICARE, BC ==
[~2017-09-12 09:20] MED LIST changes: +HYDR-2758 PO
[2017-09-12] MEDS ORDERED: HYDROcodone/APAP 5/325MG 1 TAB TABLET PO ONE (10:00)
--- NOTE | 2017-09-12 10:07 | RAD ---
Head CT without contrast History:Fall yesterday, headache and dizziness Technique: Noncontrast CT imaging was acquired of the head. RS Compliance Statement: One or more of the following individualized dose reduction techniques were utilized for this examination: 1. Automated exposure control 2. Adjustment of the mA and/or kV according to patient size 3. Use of iterative reconstruction technique Comparison: 03/18/2016 Findings: Ventricular size is stable. There is mild generalized supratentorial atrophy as seen previously. There is some atherosclerotic calcification of the carotid siphons bilaterally. There has been left mastoidectomy, some nonspecific density at the surgical site as seen previously.There is no significant intra-axial mass-effect, midline shift, or abnormal extra-axial fluid collection. There is no evidence of acute parenchymal or extraaxial hemorrhage. The visualized paranasal sinuses are aerated. No significant osseous abnormality is identified. Impression: 1. No acute intracranial abnormality is identified.
[2017-09-12 10:17] LABS: BASO % 0 % (0-3); EOS # 0.1 x10^3/uL (0.0-0.7); EOS % 1 % (0-3); HEMATOCRIT 40.7 % (36.0-47.0); HEMOGLOBIN 13.9 g/dL (12.0-15.5); LYMPH % 13 % (24-48); MEAN CORPUSCULAR HEMOGLOBIN 32 pg (25-35); MEAN CORPUSCULAR HGB CONC 34 g/dL (31-37); MEAN CORPUSCULAR VOLUME 93 fL (79-100); MONO # 0.4 x10^3/uL (0.0-1.1); MONO % 6 % (0-9); NEUT % 80 % (31-73); PLATELET COUNT 198 x10^3/uL (140-400); RED BLOOD COUNT 4.36 x10^6/uL (3.50-5.40); RED CELL DISTRIBUTION WIDTH 14.8 % (11.5-14.5); WHITE BLOOD COUNT 7.5 x10^3/uL (4.0-11.0)
--- NOTE | 2017-09-12 10:21 | RAD ---
SHOULDER 2+V RIGHT History:Fall yesterday, pain Comparison: None Findings:4 views of the right shoulder are submitted. No acute fracture or dislocation is identified. Impression: 1.No acute osseous abnormality is identified.
--- NOTE | 2017-09-12 10:23 | RAD ---
HAND RIGHT 3V History:Fall yesterday, right hand pain Comparison: None Findings:3 views of the right hand are submitted. No acute fracture or dislocation is identified. There is bone demineralization. There is degenerative change of the first carpometacarpal articulation. Impression: 1.No acute osseous abnormality is identified.
[2017-09-12 10:30] LABS: ALBUMIN 3.4 g/dL (3.4-5.0); ALBUMIN/GLOBULIN RATIO 0.9 (1.0-1.7); CALCIUM 9.2 mg/dL (8.5-10.1); CREATININE 0.9 mg/dL (0.6-1.0); GFR 60.1; POTASSIUM 4.4 mmol/L (3.5-5.1); TOTAL BILIRUBIN 1.1 mg/dL (0.2-1.0); TOTAL PROTEIN 7.2 g/dL (6.4-8.2)
[2017-09-12] MEDS ORDERED: HYDR-971 PO (10:46)
[2017-09-12] MEDS ORDERED: NAPR500T4 PO (10:46)
--- NOTE | 2017-09-12 10:46 | PHYS DOC ---
Past History Past Medical History: A-Fib, Arrhythmia, Constipation, Diverticulitis, Diabetes , GERD, High Cholesterol, Heart Disease, Hypertension, Hypothyroid Past Surgical History: Hysterectomy, Oophorectomy, Other Smoking: Non-smoker Alcohol Use: Rarely Drug Use: None Adult General Chief Complaint Chief Complaint: SHOULDER INJURY HPI HPI Patient is a 81-year-old female who presents here today secondary to right shoulder pain. Patient also complaining of right wrist pain 2. Patient reports that she was walking ended up hitting her shoulder against the doorway resulting in her twisting around and falling down and injuring her same right shoulder. Patient denies any loss of consciousness. Patient has any head trauma. Patient has any neck pain. Patient has any C-spine T-spine or L-spine pain. Patient has a nausea vomiting. Patient reports that she has been off balance for the last week although when speaking to her daughter who works here at [facility] she reports that she always is off balance for quite a while and has been extensively worked up with CAT scans by her primary care physician. Family member with patient is concerned because the patient had run out of her medications for her blood pressure blood pressure is been elevated for several days. Review of systems: Constitutional: Denies fever or chills Eyes: Denies change in visual acuity, redness, or eye pain HENT: Denies nasal congestion or sore throat Respiratory: Denies cough or shortness of breath All other systems were reviewed and found to be within normal limits, except as documented in this note. Physical exam: Constitutional: Well developed, well nourished, no acute distress, non-toxic appearance. HENT: Normocephalic, atraumatic, bilateral external ears normal, nose normal. Eyes: PERRLA, EOMI, conjunctiva normal, no discharge. Neck: Normal range of motion, no tenderness, supple, no stridor. Cardiovascular: Heart rate regular rhythm, Lungs & Thorax: Bilateral breath sounds clear to auscultation Abdomen: No abdominal distention. Skin: Warm, dry, no erythema, no rash. Back: Normal spinal curvature Extremities: No tenderness, no cyanosis, no clubbing, ROM intact, no edema. Neurologic: Alert and oriented X 3, normal motor function, normal sensory function, no focal deficits noted. Psychologic: Affect normal, judgement normal, mood normal. 1. Right shoulder pain Patient's exam was consistent with a rotator cuff injury. Patient had x-rays performed of her right shoulder which revealed no acute fracture. Patient was placed in a sling and given adequate analgesia to assist her with her pain. 2. Right hand pain Patient has tenderness to palpation is palpation to her right thumb. No scaphoid tenderness. Patient's x-ray of her right thumb was negative for fractures. Patient was given adequate analgesia to assist her with her pain. 3. Gait instability After initiation of workup we received a phone call from the patient's daughter- in-law reporting that this is a chronic condition for the patient. Patient's CBC , CMP and CT scan of her head were all unremarkable. Patient was discharged home in stable condition. Patient has no nystagmus. Patient has a wide stance gait. Patient was able and blade in the ED without any significant difficulty. Current Medications Current Medications Current Medications Medications (Trade) Dose Ordered Sig/Monty Start Time Stop Time Status Last Admin Dose Admin Acetaminophen/ Hydrocodone Bitart (Lortab 5/325) 1 tab 1X ONCE 09/12/17 10:00 09/12/17 10:01 DC 09/12/17 10:21 1 TAB Allergies Allergies Allergies Coded Allergies Type Severity Reaction Last Updated Verified Penicillins Allergy Intermediate 06/22/17 Yes adhesive tape Allergy Intermediate 06/22/17 Yes aspartame Allergy Intermediate 02/27/14 Yes latex Allergy Intermediate 02/26/14 Yes metformin Allergy Intermediate 06/22/17 Yes sulfur Allergy Intermediate 02/26/14 Yes titanium Allergy Intermediate 02/26/14 Yes Current Patient Data Lab Results Laboratory Tests Test 09/12/17 09:50 White Blood Count 7.5 x10^3/uL (4.0-11.0) Red Blood Count 4.36 x10^6/uL (3.50-5.40) Hemoglobin 13.9 g/dL (12.0-15.5) Hematocrit 40.7 % (36.0-47.0) Mean Corpuscular Volume 93 fL (79-100) Mean Corpuscular Hemoglobin 32 pg (25-35) Mean Corpuscular Hemoglobin Concent 34 g/dL (31-37) Red Cell Distribution Width 14.8 % (11.5-14.5) H Platelet Count 198 x10^3/uL (140-400) Neutrophils (%) (Auto) 80 % (31-73) H Lymphocytes (%) (Auto) 13 % (24-48) L Monocytes (%) (Auto) 6 % (0-9) Eosinophils (%) (Auto) 1 % (0-3) Basophils (%) (Auto) 0 % (0-3) Neutrophils # (Auto) 6.0 x10^3uL (1.8-7.7) Lymphocytes # (Auto) 1.0 x10^3/uL (1.0-4.8) Monocytes # (Auto) 0.4 x10^3/uL (0.0-1.1) Eosinophils # (Auto) 0.1 x10^3/uL (0.0-0.7) Basophils # (Auto) 0.0 x10^3/uL (0.0-0.2) Sodium Level 143 mmol/L (136-145) Potassium Level 4.4 mmol/L (3.5-5.1) Chloride Level 107 mmol/L (98-107) Carbon Dioxide Level 30 mmol/L (21-32) Anion Gap 6 (6-14) Blood Urea Nitrogen 16 mg/dL (7-20) Creatinine 0.9 mg/dL (0.6-1.0) Estimated GFR (Cockcroft-Gault) 60.1 BUN/Creatinine Ratio 18 (6-20) Glucose Level 119 mg/dL (70-99) H Calcium Level 9.2 mg/dL (8.5-10.1) Total Bilirubin 1.1 mg/dL (0.2-1.0) H Aspartate Amino Transferase (AST) 23 U/L (15-37) Alanine Aminotransferase (ALT) 30 U/L (14-59) Alkaline Phosphatase 63 U/L (46-116) Total Protein 7.2 g/dL (6.4-8.2) Albumin 3.4 g/dL (3.4-5.0) Albumin/Globulin Ratio 0.9 (1.0-1.7) L EKG EKG [] Radiology/Procedures Radiology/Procedures [] Course & Med Decision Making Course & Med Decision Making Pertinent Labs and Imaging studies reviewed. (See chart for details) [] Dragon Disclaimer Dragon Disclaimer This electronic medical record was generated, in whole or in part, using a voice recognition dictation system. Departure Departure: Impression: Primary Impression: Rotator cuff injury Additional Impression: Shoulder pain Disposition: HOME, SELF-CARE Condition: IMPROVED Referrals: SAUL ANN (PCP) Patient Instructions: Arm Sling Use-Brief, Rotator Cuff Injury, Shoulder Pain Additional Instructions: Your likely have a tear of one of the muscles in your rotator cuff. You will need to follow-up with her doctor to be reevaluated and likely get a referral to see a orthopedic surgeon for reevaluation and possible outpatient MRI if your symptoms do not improve within the next few days. Scripts Hydrocodone Bit/Acetaminophen (NORCO 5-325 TABLET) 1 Each Tablet 1 TAB PO PRN Q6HRS Y for PAIN, #12 TAB 0 Refills Prov: ROBBY LIANG MD 09/12/17 Naproxen (NAPROXEN) 500 Mg Tablet 1 TAB PO BID, #20 TAB Prov: ROBBY LIANG MD 09/12/17 Problem Qualifiers ROBBY LIANG MD Sep 12, 2017 10:46
[2017-09-12 11:00] VITALS: BP 142/70
== END 2017-09-12 11:00 | disposition home or self-care (01) ==
LOC: ER 09:20
DX: S46.001A Unspecified injury of muscle(s) and tendon(s) of the rotator cuff of right shoulder, initial encounter (principal); R11.2 Nausea with vomiting, unspecified; I11.9 Hypertensive heart disease without heart failure; E03.9 Hypothyroidism, unspecified; E11.9 Type 2 diabetes mellitus without complications; E78.00 Pure hypercholesterolemia, unspecified; I48.91 Unspecified atrial fibrillation; K21.9 Gastro-esophageal reflux disease without esophagitis; Z88.0 Allergy status to penicillin; Z88.2 Allergy status to sulfonamides; Z88.8 Allergy status to other drugs, medicaments and biological substances; Z91.040 Latex allergy status; W01.198A Fall on same level from slipping, tripping and stumbling with subsequent striking against other object, initial encounter; Y93.01 Activity, walking, marching and hiking; Y99.8 Other external cause status; Y92.89 Other specified places as the place of occurrence of the external cause
CPT/HCPCS: 36415; 70450; 73030; 73130; 80053; 85025; 99285-25

== ENCOUNTER 2018-02-04 13:14 | Inpatient (IN) | payer MEDICARE, BC ==
[~2018-02-04] VITALS: Ht 170.2 cm; Wt 64.4 kg
[~2018-02-04 13:14] MED LIST changes: +NAPR-514 PO
[2018-02-04 13:55] LABS: BASO % 0 % (0-3); EOS % 0 % (0-3); HEMATOCRIT 39.2 % (36.0-47.0); HEMOGLOBIN 13.3 g/dL (12.0-15.5); LYMPH # 1.1 x10^3/uL (1.0-4.8); LYMPH % 15 % (24-48); MEAN CORPUSCULAR HEMOGLOBIN 31 pg (25-35); MEAN CORPUSCULAR HGB CONC 34 g/dL (31-37); MEAN CORPUSCULAR VOLUME 91 fL (79-100); MONO # 0.5 x10^3/uL (0.0-1.1); MONO % 6 % (0-9); NEUT % 78 % (31-73); PLATELET COUNT 296 x10^3/uL (140-400); RED BLOOD COUNT 4.29 x10^6/uL (3.50-5.40); RED CELL DISTRIBUTION WIDTH 14.3 % (11.5-14.5); WHITE BLOOD COUNT 7.7 x10^3/uL (4.0-11.0)
--- NOTE | 2018-02-04 14:08 | RAD ---
EXAM: Chest, single view. HISTORY: Altered level of consciousness. COMPARISON: None. FINDINGS: A frontal view of the chest is obtained. There is no infiltrate, effusion or pneumothorax. The heart is normal in size. There is evidence of median sternotomy and cardiac valve surgery. There is a cardiac event monitor overlying the left mediastinum. There is left basilar atelectasis. IMPRESSION: No acute pulmonary finding. Electronically signed by: Keyana Mart MD (02/04/2018 2:05 PM) [place] [id number]
--- NOTE | 2018-02-04 14:09 | RAD ---
PQRS Compliance Statement: One or more of the following individualized dose reduction techniques were utilized for this examination: 1. Automated exposure control 2. Adjustment of the mA and/or kV according to patient size 3. Use of iterative reconstruction technique CT head without contrast 02/04/2018 1:57 PM INDICATION: Loss of consciousness COMPARISON: CT head September 12, 2017 TECHNIQUE: Multiple axial CT images of the head were obtained from skull base through the vertex without intravenous contrast. FINDINGS: Head: Ventricles, sulci and basal cisterns are within normal limits. There is no hydrocephalus. Epperson-white matter differentiation is normal. There is no acute intracranial hemorrhage. There is no mass, mass effect or midline shift. There is a remote lacunar infarct in the left cerebellum. Atherosclerotic calcification is noted involving the cavernous segments of internal carotid arteries. Visualized portions of the orbits are normal. Paranasal sinuses are well aerated. Mastoidectomy changes are identified on the left desiccation of the left mastoid air cells. Scalp and calvaria are intact. IMPRESSION: No acute intracranial hemorrhage. Left mastoidectomy changes are present. Remote lacunar infarct involving the left cerebellum. Electronically signed by: Blanche Terrazas MD (02/04/2018 2:06 PM) [id number]
[2018-02-04 14:17] LABS: ALBUMIN 3.1 g/dL (3.4-5.0); ALBUMIN/GLOBULIN RATIO 0.6 (1.0-1.7); CALCIUM 9.9 mg/dL (8.5-10.1); CREATININE 0.8 mg/dL (0.6-1.0); GFR 68.7; POTASSIUM 4.2 mmol/L (3.5-5.1); TOTAL BILIRUBIN 0.6 mg/dL (0.2-1.0); TOTAL PROTEIN 7.9 g/dL (6.4-8.2)
--- NOTE | 2018-02-04 14:21 | PHYS DOC ---
Past History Past Medical History: A-Fib, Arrhythmia, Constipation, Diverticulitis, Diabetes , GERD, High Cholesterol, Heart Disease, Hypertension, Hypothyroid Past Surgical History: Hysterectomy, Oophorectomy, Other Smoking: Non-smoker Alcohol Use: Occasionally Drug Use: None Adult General Chief Complaint Chief Complaint: MECHANICAL FALL HPI HPI 82-year-old female patient with history of atrial fibrillation on Coumadin, hypertension, diabetes, coronary artery disease she lost her balance between her bed and a dresser and had a fall and hit right side of her head against the dresser without loss of consciousness. She denies focal neuro deficit, fever and chills, chest pain, palpitation, nausea and vomiting. Patient was seen by her primary care physician yesterday and treated for UTI with Macrobid and had the first dose of medication today but denies urinary symptom, abdominal pain, diarrhea and constipation. Patient's son states she is more confused compared to her baseline and had frequent falls and not acting like her normal for the last few days. Patient primary care physician was concerned for her frequent falls and taking Coumadin and put her on cardiac monitor technician for evaluation of atrial fibrillation for possible stopping Coumadin. Review of Systems Review of Systems Constitutional: Denies fever or chills [] Eyes: Denies change in visual acuity, redness, or eye pain [] HENT: Denies nasal congestion or sore throat [] Respiratory: Denies cough or shortness of breath [] Cardiovascular: No additional information not addressed in HPI [] GI: Denies abdominal pain, nausea, vomiting, bloody stools or diarrhea [] : Denies dysuria or hematuria [] Musculoskeletal: Denies back pain or joint pain [] Integument: Denies rash or skin lesions [] Neurologic: Denies headache, focal weakness or sensory changes [] Endocrine: Denies polyuria or polydipsia [] All other systems were reviewed and found to be within normal limits, except as documented in this note. Allergies Allergies Allergies Coded Allergies Type Severity Reaction Last Updated Verified Penicillins Allergy Intermediate 06/22/17 Yes adhesive tape Allergy Intermediate 06/22/17 Yes aspartame Allergy Intermediate 02/27/14 Yes latex Allergy Intermediate 02/26/14 Yes metformin Allergy Intermediate 06/22/17 Yes sulfur Allergy Intermediate 02/26/14 Yes titanium Allergy Intermediate 02/26/14 Yes Physical Exam Physical Exam Constitutional: Well developed, well nourished, no acute distress, non-toxic appearance. [] HENT: Normocephalic, 2 cm contusion in the right eyebrow without open wound or abrasion, bilateral external ears normal, oropharynx moist, no oral exudates, nose normal. [] Eyes: PERRLA, EOMI, conjunctiva normal, no discharge. [] Neck: Normal range of motion, no tenderness, supple, no stridor. [] Cardiovascular: Irregularly irregular, no murmur [] Lungs & Thorax: Bilateral breath sounds clear to auscultation [] Abdomen: Bowel sounds normal, soft, no tenderness, no masses, no pulsatile masses. [] Skin: Warm, dry, no erythema, no rash. [] Back: No tenderness, no CVA tenderness. [] Extremities: No tenderness, no cyanosis, no clubbing, ROM intact, no edema. [] Neurologic: Alert and oriented X 3, normal motor function, normal sensory function, no focal deficits noted. [] Psychologic: Affect normal, judgement normal, mood normal. [] Current Patient Data Vital Signs Vital Signs Date Time Temp Pulse Resp B/P (MAP) Pulse Ox O2 Delivery O2 Flow Rate FiO2 02/04/18 13:55 69 22 98 Room Air Lab Results Laboratory Tests Test 02/04/18 13:35 White Blood Count 7.7 x10^3/uL (4.0-11.0) Red Blood Count 4.29 x10^6/uL (3.50-5.40) Hemoglobin 13.3 g/dL (12.0-15.5) Hematocrit 39.2 % (36.0-47.0) Mean Corpuscular Volume 91 fL (79-100) Mean Corpuscular Hemoglobin 31 pg (25-35) Mean Corpuscular Hemoglobin Concent 34 g/dL (31-37) Red Cell Distribution Width 14.3 % (11.5-14.5) Platelet Count 296 x10^3/uL (140-400) Neutrophils (%) (Auto) 78 % (31-73) H Lymphocytes (%) (Auto) 15 % (24-48) L Monocytes (%) (Auto) 6 % (0-9) Eosinophils (%) (Auto) 0 % (0-3) Basophils (%) (Auto) 0 % (0-3) Neutrophils # (Auto) 6.0 x10^3uL (1.8-7.7) Lymphocytes # (Auto) 1.1 x10^3/uL (1.0-4.8) Monocytes # (Auto) 0.5 x10^3/uL (0.0-1.1) Eosinophils # (Auto) 0.0 x10^3/uL (0.0-0.7) Basophils # (Auto) 0.0 x10^3/uL (0.0-0.2) Prothrombin Time 22.9 SEC (9.4-11.4) H Prothrombin Time INR 2.3 (0.9-1.1) H PTT 33 SEC (23-33) Sodium Level 139 mmol/L (136-145) Potassium Level 4.2 mmol/L (3.5-5.1) Chloride Level 101 mmol/L (98-107) Carbon Dioxide Level 30 mmol/L (21-32) Anion Gap 8 (6-14) Blood Urea Nitrogen 16 mg/dL (7-20) Creatinine 0.8 mg/dL (0.6-1.0) Estimated GFR (Cockcroft-Gault) 68.7 BUN/Creatinine Ratio 20 (6-20) Glucose Level 157 mg/dL (70-99) H Calcium Level 9.9 mg/dL (8.5-10.1) Total Bilirubin 0.6 mg/dL (0.2-1.0) Aspartate Amino Transferase (AST) 20 U/L (15-37) Alanine Aminotransferase (ALT) 28 U/L (14-59) Alkaline Phosphatase 64 U/L (46-116) Creatine Kinase 51 U/L (26-192) Creatine Kinase MB (Mass) 0.9 ng/mL (0.0-3.6) Creatine Kinase MB Relative Index 1.8 % (0-4) Troponin I Quantitative < 0.017 ng/mL (0-0.055) LN-Kpm-Q-Type Natriuretic Peptide 1725 pg/mL (0-449) H Total Protein 7.9 g/dL (6.4-8.2) Albumin 3.1 g/dL (3.4-5.0) L Albumin/Globulin Ratio 0.6 (1.0-1.7) L EKG EKG EKG interpreted by me. EKG at 1328 showed atrial fibrillation at rate of 67, poor R-wave progress in anteroseptal leads[] Radiology/Procedures Radiology/Procedures [] [address] [address] IMAGING REPORT Signed PATIENT: JESUS LEON ACCOUNT: [id number] : 1935 LOCATION: ER AGE: 82 SEX: F EXAM STATUS: REG ER ORD. PHYSICIAN: TIM PETERS MD REASON: ALOC PROCEDURE: CT HEAD WO CONTRAST PQRS Compliance Statement: One or more of the following individualized dose reduction techniques were utilized for this examination: 1. Automated exposure control 2. Adjustment of the mA and/or kV according to patient size 3. Use of iterative reconstruction technique CT head without contrast 02/04/2018 1:57 PM INDICATION: Loss of consciousness COMPARISON: CT head September 12, 2017 TECHNIQUE: Multiple axial CT images of the head were obtained from skull base through the vertex without intravenous contrast. FINDINGS: Head: Ventricles, sulci and basal cisterns are within normal limits. There is no hydrocephalus. Epperson-white matter differentiation is normal. There is no acute intracranial hemorrhage. There is no mass, mass effect or midline shift. There is a remote lacunar infarct in the left cerebellum. Atherosclerotic calcification is noted involving the cavernous segments of internal carotid arteries. Visualized portions of the orbits are normal. Paranasal sinuses are well aerated. Mastoidectomy changes are identified on the left desiccation of the left mastoid air cells. Scalp and calvaria are intact. IMPRESSION: No acute intracranial hemorrhage. Left mastoidectomy changes are present. Remote lacunar infarct involving the left cerebellum. Electronically signed by: Rainer Quiroz MD (02/04/2018 2:06 PM) [id number] DICTATED AND SIGNED BY: RAINER QUIROZ MD DATE: 02/04/18 6770 CC: SAUL ANN MD; TIM PETERS MD ~ Course & Med Decision Making Course & Med Decision Making Pertinent Labs and Imaging studies reviewed. (See chart for details) Evaluation of patient in ER showed 82-year-old female patient with history of atrial fibrillation on Coumadin with frequent fall and further head injury today. Patient had unremarkable labs except for UTI and elevation of BNP. CT of head did not show acute finding. Plan to admit patient with diagnosis of altered level of consciousness and UTI. Rocephin was started in ER at IV fluid was not given because of elevation of BNP. Recommended the informed at 1535 and agreed with plan of care. [] Dragon Disclaimer Dragon Disclaimer This electronic medical record was generated, in whole or in part, using a voice recognition dictation system. Departure Departure: Impression: Primary Impression: Altered level of consciousness Additional Impressions: UTI (urinary tract infection) Facial contusion Atrial fibrillation CHF (congestive heart failure) Disposition: 09 ADMITTED INPATIENT (at 1535) Admitting Physician: Mauricio Reis Condition: IMPROVED Referrals: SAUL ANN MD (PCP) Problem Qualifiers TIM PETERS MD Feb 04, 2018 14:21
[2018-02-04 15:02] LABS: BILIRUBIN,URINE NEG (NEG); CLARITY,URINE CLOUDY; COLOR,URINE YELLOW; GLUCOSE,URINE NEG (NEG)
[2018-02-04 15:03] LABS: BACTERIA,URINE MOD /HPF (0-FEW); NITRITE,URINE POS (NEG); RBC,URINE 20-40 /HPF (0-2); SQUAMOUS EPITHELIAL CELL,UR FEW /LPF; UROBILINOGEN,URINE 0.2 mg/dL (0.2 mg/dL); WBC,URINE >40 /HPF (0-4)
--- NOTE | 2018-02-04 15:42 | EKG ---
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
[2018-02-04] MEDS ORDERED: cefTRIAXone IV Push 1 GM VIAL. IVP ONE (15:45)
[2018-02-04 16:47] VITALS: BP 159/76
[2018-02-04] MEDS ORDERED: ZOLP5TAB PO (19:11)
[2018-02-04] MEDS ORDERED: PYRI25TA3 PO (19:11)
[2018-02-04] MEDS ORDERED: DONE10TA7 PO (19:11)
[2018-02-04] MEDS ORDERED: DICL100G18 TP (19:11)
[2018-02-04] MEDS ORDERED: CYAN10005 PO (19:11)
[2018-02-04] MEDS ORDERED: MEMA10TA PO (19:11)
[2018-02-04] MEDS ORDERED: MEMA1CAP3 PO (19:14)
[2018-02-04 19:39] VITALS: BP 159/66
[2018-02-04] MEDS ORDERED: WARF-31 PO (19:43)
[2018-02-04] MEDS: DONEPEZIL HCL 10 MG TABLET PO SCH (20:13)
[2018-02-04] MEDS: MEMANTINE 10 MG TABLET. PO SCH (20:13)
[2018-02-04] MEDS: NAPROXEN 500 MG TABLET PO SCH (20:14)
[2018-02-04] MEDS ORDERED: NON FORMULARY ITEM (Memantine HCl/Donepezil HCl (Namzaric 28 mg-10 mg Capsule) 1 EACH) PO SCH (21:00)
[2018-02-05] MEDS: ZOLPIDEM 5 MG TABLET. PO PRN ×2 (00:06→20:21)
[2018-02-05 00:09] VITALS: BP 149/70
[2018-02-05] MEDS: LEVOTHYROXINE 75 MCG TABLET PO SCH (05:41)
[2018-02-05 05:54] VITALS: BP 156/89
[2018-02-05 06:16] LABS: BASO % 1 % (0-3); EOS # 0.1 x10^3/uL (0.0-0.7); EOS % 1 % (0-3); HEMATOCRIT 37.8 % (36.0-47.0); HEMOGLOBIN 12.8 g/dL (12.0-15.5); LYMPH # 1.5 x10^3/uL (1.0-4.8); LYMPH % 21 % (24-48); MEAN CORPUSCULAR HEMOGLOBIN 31 pg (25-35); MEAN CORPUSCULAR HGB CONC 34 g/dL (31-37); MEAN CORPUSCULAR VOLUME 90 fL (79-100); MONO # 0.5 x10^3/uL (0.0-1.1); MONO % 6 % (0-9); NEUT # 5.2 x10^3uL (1.8-7.7); NEUT % 71 % (31-73); PLATELET COUNT 325 x10^3/uL (140-400); RED BLOOD COUNT 4.18 x10^6/uL (3.50-5.40); RED CELL DISTRIBUTION WIDTH 14.2 % (11.5-14.5); WHITE BLOOD COUNT 7.3 x10^3/uL (4.0-11.0)
[2018-02-05 06:38] LABS: ALBUMIN 3.1 g/dL (3.4-5.0); ALBUMIN/GLOBULIN RATIO 0.7 (1.0-1.7); CALCIUM 9.3 mg/dL (8.5-10.1); CREATININE 0.7 mg/dL (0.6-1.0); GFR 80.1; POTASSIUM 4.3 mmol/L (3.5-5.1); TOTAL BILIRUBIN 0.6 mg/dL (0.2-1.0); TOTAL PROTEIN 7.5 g/dL (6.4-8.2)
[2018-02-05] MEDS: CYANOCOBALAMIN (VITAMIN B-12) 1,000 MCG TABLET. PO SCH (08:40)
[2018-02-05] MEDS: ATORVASTATIN CALCIUM 10 MG TABLET. PO SCH (08:40)
[2018-02-05] MEDS: CARVEDILOL 12.5 MG TABLET PO SCH ×2 (08:40→17:14)
[2018-02-05] MEDS: GABAPENTIN 400 MG CAPSULE. PO SCH ×2 (08:40→11:45)
[2018-02-05] MEDS: CALCIUM CARB/VIT D3 500/200 TABLET PO SCH (08:41)
[2018-02-05] MEDS: ASCORBIC ACID 500 MG TABLET PO SCH (08:41)
[2018-02-05] MEDS: MEMANTINE 10 MG TABLET. PO SCH ×2 (08:41→20:21)
[2018-02-05] MEDS: NAPROXEN 500 MG TABLET PO SCH ×2 (08:41→20:21)
[2018-02-05] MEDS: OMEGA-3 FATTY ACIDS/FISH OIL 1,000 MG CAPSULE. PO SCH (08:41)
[2018-02-05 10:43] VITALS: BP 159/77
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
[2018-02-05 14:56] VITALS: BP 162/76
[2018-02-05] MEDS ORDERED: WARFARIN 5 MG TABLET. PO SCH (16:00)
[2018-02-05 18:04] VITALS: BP 162/76
[2018-02-05] MEDS ORDERED: cefTRIAXone IV Push 1 GM VIAL. IVP SCH (19:00)
[2018-02-05] MEDS: DONEPEZIL HCL 10 MG TABLET PO SCH (20:21)
[2018-02-05 22:05] VITALS: BP 150/71
--- NOTE | 2018-02-05 22:13 | PN ---
DATE: 02/05/2018 SUBJECTIVE: The patient is resting slightly propped up in bed, in no apparent distress. On questioning her, she said she is tired. She apparently was admitted with a history of fall and was found to have UTI for which she received 1 gram of Rocephin. She apparently has been up and about working with physical therapy; however, she continued to be weak. We do not have any culture and sensitivity and as she continued to complain of being weak, a decision was made to keep her one more overnight to continue with IV antibiotic. Continue with physical and occupational therapy and to discharge her tomorrow with home health. OBJECTIVE: GENERAL: On examining her this afternoon, she looked well, slightly pale, but no jaundice, cyanosis or thyromegaly. No jugular venous distension, no lower limb edema. VITAL SIGNS: Her heart rate was 72, blood pressure 159/77, temperature was 98.1, respiratory rate 20 and oxygen saturation was 98%. HEAD, EYES, EARS, NOSE AND THROAT: Showed she is normocephalic, atraumatic. NECK: Supple. HEART: Showed normal first and second heart sounds with no gallop, rub or murmur. CHEST: Clear to auscultation. No crepitation or rhonchi. ABDOMEN: Distended, soft, nontender. NEUROLOGIC: She is awake, alert, responding appropriately. Cranial nerves intact. She moves extremities without difficulty. She ambulates with a walker, although apparently she has multiple falls, she had an event monitor, which showed episodes of tachy bradyarrhythmia. Her intake was 650, no output was recorded. LABORATORY DATA: Her lab work this morning showed a white cell count 7300, hemoglobin 13, hematocrit 38, MCV 90 and platelet count of 325,000. Her chemistry showed a BUN of 18, creatinine 0.7. The urine culture is still pending at the time of this dictation. PLAN: My plan is to continue with her current medications. Continue with IV Rocephin. We will consult our case investigator to arrange for home health and we will discharge her tomorrow. Hopefully, by that time, we have the culture results of the urine culture and sensitivity. DIANA LORENZANA MD DR: JAIME/hector JOB#: [id number] / [id number]
[2018-02-06] MEDS: LEVOTHYROXINE 75 MCG TABLET PO SCH (05:12)
[2018-02-06 05:21] VITALS: BP 158/82
[2018-02-06] MEDS: MEMANTINE 10 MG TABLET. PO SCH (08:27)
[2018-02-06] MEDS: NAPROXEN 500 MG TABLET PO SCH (08:27)
[2018-02-06] MEDS: CALCIUM CARB/VIT D3 500/200 TABLET PO SCH (08:27)
[2018-02-06] MEDS: ASCORBIC ACID 500 MG TABLET PO SCH (08:27)
[2018-02-06] MEDS: GABAPENTIN 400 MG CAPSULE. PO SCH ×2 (08:27→11:38)
[2018-02-06] MEDS: OMEGA-3 FATTY ACIDS/FISH OIL 1,000 MG CAPSULE. PO SCH (08:27)
[2018-02-06] MEDS: ATORVASTATIN CALCIUM 10 MG TABLET. PO SCH (08:27)
[2018-02-06] MEDS: CYANOCOBALAMIN (VITAMIN B-12) 1,000 MCG TABLET. PO SCH (08:27)
[2018-02-06] MEDS: CARVEDILOL 12.5 MG TABLET PO SCH (08:28)
[2018-02-06] MEDS ORDERED: LACTOBACILLUS RHAMNOSUS GG 1 CAPSULE. PO SCH (09:00)
--- NOTE | 2018-02-06 11:20 | DS ---
DATE OF DISCHARGE: 02/06/2018 HOSPITAL COURSE: The patient is an 83-year-old female patient, who was admitted with fall. She apparently lost her balance between the bed and dresser, had a fall and hit her head, right side of her head against the dresser without losing consciousness. She was seen by her primary care physician the day before admission and was treated for UTI with Macrobid and had her first dose of medication the day of admission. Her son said that she was more confused compared to her baseline, had frequent falls, not acting like her normal for the last few days. Her test and balance engineer is concerned about her frequent falls and she has a awake overnight monitor evaluation for possible sick sinus syndrome and tachy bradyarrhythmia. She was extensively investigated and was treated with IV Rocephin for UTI, was admitted and she was continued with IV Rocephin. She was evaluated by physical and occupational therapist. She is able to walk with a walker, has had no further episodes of falls. All her lab works were within acceptable range. She remained afebrile, hemodynamically stable and decision was made to discharge her home with home health. PHYSICAL EXAMINATION: GENERAL: When I saw her today, she was resting, slightly propped up in bed, in no apparent respiratory distress, slightly pale, but no jaundice, cyanosis, or thyromegaly. No jugular venous distension. No lower limb edema. VITAL SIGNS: Her heart rate was 70, blood pressure 158/82, temperature was 98, respiratory rate was 18 and oxygen saturation was 98%. HEAD, EYES, EARS, NOSE AND THROAT: Showed normocephalic, atraumatic. NECK: Supple. HEART: Showed normal first and second heart sounds. No gallop, rub or murmur. CHEST: Clear to auscultation. No crepitation or rhonchi. ABDOMEN: Distended, soft, nontender. No guarding or rigidity. No organomegaly. All hernial orifice intact. Bowel sounds normal. NEUROLOGIC: She is awake, alert, responding appropriately. All cranial nerves intact. She ambulates with a walker without difficulty. Her intake was was recorded. LABORATORY DATA: This morning showed a serum sodium 141, potassium 4.3, chloride 103, bicarbonate 29, anion gap of 9, BUN 18, creatinine 0.7, estimated GFR was 80 mL per minute. Her glucose was 124, calcium was 9.3. Total bilirubin, AST, ALT, alkaline phosphatase were normal. Total protein was 7.5, albumin 3.1. Her white cell count was 7300, hemoglobin 12.8, hematocrit 37.8, MCV 90 and platelet count of 325,000 with normal manual differential. Her prothrombin time was 19.9, INR of 2. Urinalysis showed the urine was yellow, cloudy with a pH of 7.5 with specific gravity of 1015. Urinalysis: The urine was negative for protein, glucose, ketones, blood, and positive for nitrite. There is moderate amount of leukocyte esterase with 20-40 rbc's and more than 40 wbc's and moderate amount of bacteria. Her blood cultures are negative. DISCHARGE MEDICATIONS: The patient will be discharged home on his home health to continue on ascorbic acid 1000 mg once a day, atorvastatin calcium 10 mg at bedtime, calcium carbonate with vitamin D one tablet once a day, carvedilol 25 mg twice a day, cyanocobalamin 1000 mcg p.o. daily, diclofenac sodium for Voltaren gel applied topically twice a day, gabapentin 400 mg twice a day, levothyroxine sodium. She continued to be on levothyroxine 75 mcg once a day 1 capsule at bedtime, naproxen 500 mg twice a day, omega-3 fatty acids 1 capsule daily, pyridoxine 25 mg once a day, warfarin 5 mg daily, Ambien 5 mg at bedtime. FINAL DISCHARGE DIAGNOSES: 1. Urinary tract infection. 2. Recurrent falls. OTHER MEDICAL PROBLEMS: Include hyperlipidemia, hypothyroidism, dementia, type 2 diabetes and atrial fibrillation. DIANA LORENZANA MD DR: JAIME/hector JOB#: [id number] / [id number]
[2018-02-06 11:54] VITALS: BP 145/65
== END 2018-02-06 12:32 | disposition home health service (06) | DRG 689 ==
LOC: ER 13:14 → 1 SOUTH 16:40
PROVIDERS: ADMIT Internal Medicine; ATTEND Internal Medicine
DX: N39.0 Urinary tract infection, site not specified (principal); G92 Toxic encephalopathy; I48.91 Unspecified atrial fibrillation; I49.5 Sick sinus syndrome; I11.0 Hypertensive heart disease with heart failure; I50.9 Heart failure, unspecified; S00.83XA Contusion of other part of head, initial encounter; E11.9 Type 2 diabetes mellitus without complications; E03.9 Hypothyroidism, unspecified; R29.6 Repeated falls; I25.10 Atherosclerotic heart disease of native coronary artery without angina pectoris; K21.9 Gastro-esophageal reflux disease without esophagitis; F03.90 Unspecified dementia, unspecified severity, without behavioral disturbance, psychotic disturbance, mood disturbance, and anxiety; E78.5 Hyperlipidemia, unspecified; W18.09XA Striking against other object with subsequent fall, initial encounter; Y93.89 Activity, other specified; Y92.092 Bedroom in other non-institutional residence as the place of occurrence of the external cause; Y99.8 Other external cause status; Z80.52 Family history of malignant neoplasm of bladder; Z80.0 Family history of malignant neoplasm of digestive organs; Z80.3 Family history of malignant neoplasm of breast; Z87.891 Personal history of nicotine dependence; Z90.710 Acquired absence of both cervix and uterus; Z98.41 Cataract extraction status, right eye; Z98.42 Cataract extraction status, left eye; Z91.040 Latex allergy status; Z88.0 Allergy status to penicillin; Z88.8 Allergy status to other drugs, medicaments and biological substances; Z91.048 Other nonmedicinal substance allergy status; Z90.722 Acquired absence of ovaries, bilateral; Z90.49 Acquired absence of other specified parts of digestive tract; Z79.899 Other long term (current) drug therapy
CPT/HCPCS: 36415; 70450; 71045; 80053; 81001; 82553; 83605; 83880; 84484; 85025; 85610; 85730; 87040; 87086; 93005; 96374; J0696; 99285-25

== ENCOUNTER → 2018-04-06 | Outpatient (CLI) | payer MEDICARE, BC ==
[~2018-04-06] MED LIST changes: +CYAN10005 PO; +DICL100G18 TP; +DONE10TA7 PO; +MEMA10TA PO; +MEMA1CAP3 PO; +PYRI25TA3 PO; +WARF-31 PO; +WARF4TAB64 PO; -WARF4TAB7 PO; +ZOLP5TAB PO
[2018-04-06 14:17] LABS: BACTERIA,URINE FEW /HPF (0-FEW); BILIRUBIN,URINE NEG (NEG); CLARITY,URINE CLEAR; COLOR,URINE YELLOW; GLUCOSE,URINE NEG (NEG); NITRITE,URINE NEG (NEG); SQUAMOUS EPITHELIAL CELL,UR FEW /LPF; UROBILINOGEN,URINE 0.2 mg/dL (0.2 mg/dL)
== END | disposition home or self-care (01) ==
LOC: LAB 13:33
PROVIDERS: ATTEND Orthopaedic Surgery
DX: Z02.83 Encounter for blood-alcohol and blood-drug test (principal); I11.0 Hypertensive heart disease with heart failure; I50.9 Heart failure, unspecified; E03.9 Hypothyroidism, unspecified; E11.9 Type 2 diabetes mellitus without complications; K21.9 Gastro-esophageal reflux disease without esophagitis; E78.5 Hyperlipidemia, unspecified; Z90.49 Acquired absence of other specified parts of digestive tract; Z90.722 Acquired absence of ovaries, bilateral; Z90.710 Acquired absence of both cervix and uterus; Z88.2 Allergy status to sulfonamides; Z88.0 Allergy status to penicillin; Z88.8 Allergy status to other drugs, medicaments and biological substances; Z80.0 Family history of malignant neoplasm of digestive organs; Z80.52 Family history of malignant neoplasm of bladder; Z80.3 Family history of malignant neoplasm of breast
CPT/HCPCS: 81001

== ENCOUNTER 2018-07-21 15:38 | Emergency (ER) | payer MEDICARE, BC ==
[~2018-07-21] VITALS: Ht 167.6 cm; Wt 64.4 kg
[~2018-07-21 15:38] MED LIST changes: -LOSA50TA6 PO; +LOSA50TA7 PO
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
[2018-07-21] MEDS ORDERED: traMADol 50 MG TABLET PO ONE (16:30)
--- NOTE | 2018-07-21 17:07 | RAD ---
HIP RIGHT 2V WITH PELVIS History: FALL, RIGHT HIP PAIN Comparison: None. Findings: AP view of the pelvis and 2 additional views of the right hip are submitted. There is appearance of relatively shorter right femoral neck compared with the left although difficult to identify discrete fracture plane by this exam. Femoral heads articulate normally with acetabula. Impression: 1. There is appearance of relative shortening of the right femoral head compared with the left suspicious for fracture although difficult to identify discrete fracture plane by radiographs. Given history, CT or MRI evaluation may be beneficial. Electronically signed by: Jake Gutierres MD (07/21/2018 5:03 PM) [facility] [place]
[2018-07-21] MEDS ORDERED: HYDROmorphone PF 1 MG/ML DISP.SYRIN IV ONE (17:30)
[2018-07-21] MEDS ORDERED: ONDANSETRON PF 4 MG/2 ML VIAL. IV ONE (17:30)
[2018-07-21 17:42] LABS: BASO % 0 % (0-3); EOS % 0 % (0-3); HEMATOCRIT 36.8 % (36.0-47.0); HEMOGLOBIN 12.2 g/dL (12.0-15.5); LYMPH # 1.2 x10^3/uL (1.0-4.8); LYMPH % 14 % (24-48); MEAN CORPUSCULAR HEMOGLOBIN 29 pg (25-35); MEAN CORPUSCULAR HGB CONC 33 g/dL (31-37); MEAN CORPUSCULAR VOLUME 88 fL (79-100); MONO # 0.5 x10^3/uL (0.0-1.1); MONO % 5 % (0-9); NEUT # 6.9 x10^3uL (1.8-7.7); NEUT % 81 % (31-73); PLATELET COUNT 190 x10^3/uL (140-400); RED BLOOD COUNT 4.19 x10^6/uL (3.50-5.40); RED CELL DISTRIBUTION WIDTH 16.9 % (11.5-14.5); WHITE BLOOD COUNT 8.5 x10^3/uL (4.0-11.0)
--- NOTE | 2018-07-21 17:53 | RAD ---
CT scan of the right hip without contrast 07/21/2018 CLINICAL HISTORY: Right hip pain post fall. Questionable fracture seen on radiographs of the right hip. TECHNIQUE: Unenhanced, contiguous, 0.625 mm axial sections were obtained through the right hip. 5 mm reconstructed sagittal, axial and coronal images were obtained. One or more of the following individualized dose reduction techniques were utilized for this study: 1. Automated exposure control. 2. Adjustment of the mA and/or kV according to patient size. 3. Use of iterative reconstruction technique. FINDINGS: Comparison is made to radiographs of right hip performed earlier today. An acute subcapital fracture of the right femoral neck is seen. The fracture fragments are slightly impacted. Mild internal rotation of the distal fracture fragment is noted. No dislocation is seen. Mild degenerative changes are seen involving the right hip. IMPRESSION: Acute subcapital fracture of the right femoral neck. Electronically signed by: Mark Ferrera MD (07/21/2018 5:49 PM) [facility]
--- NOTE | 2018-07-21 18:09 | EKG ---
[address] [address] Test Date: 2018-07-21 Test Time: 17:45:38 Pat Name: JESUS LEON Department: Room: Gender: F [employer]: : 1935 Requested By: BERNARD RINCON Order Number: [id number] Reading MD: Richard Villa MD Measurements Intervals [place] Rate: 77 P: 0 CO: 222 QRS: 45 QRSD: 112 T: 116 QT: 374 QTc: 425 Interpretive Statements SINUS RHYTHM PROLONGED CO INTERVAL Electronically Signed On 07-26-2018 10:52:39 CDT by Richard Villa MD
[2018-07-21 18:13] LABS: ALBUMIN 3.4 g/dL (3.4-5.0); CALCIUM 9.4 mg/dL (8.5-10.1); CREATININE 1.1 mg/dL (0.6-1.0); GFR 47.6; POTASSIUM 4.5 mmol/L (3.5-5.1); TOTAL PROTEIN 6.8 g/dL (6.4-8.2)
--- NOTE | 2018-07-21 18:43 | RAD ---
AP portable chest radiograph 07/21/2018 Clinical History: Right hip fracture. Preoperative clearance. An AP erect portable digital radiograph of the chest was obtained. Comparison study is dated 02/04/2018. The patient is post cardiac valve replacement. A left-sided pacemaker has been placed. Leads extend to overlie the right atrium and right ventricle of the heart. The cardiac silhouette is normal in size. Atherosclerotic calcification of the thoracic aorta is seen. The thoracic aorta is mildly tortuous. No acute pulmonary infiltrate is noted. No pneumothorax or pleural effusion is seen. The osseous structures are unchanged. Impression: No acute abnormality is seen. Electronically signed by: Mark Ferrera MD (07/21/2018 6:39 PM) [facility]
[2018-07-21 19:35] VITALS: BP 119/47
== END 2018-07-21 19:50 | disposition short-term general hospital (02) ==
LOC: ER 15:38
DX: S72.011A Unspecified intracapsular fracture of right femur, initial encounter for closed fracture (principal); R10.31 Right lower quadrant pain; I48.91 Unspecified atrial fibrillation; E11.9 Type 2 diabetes mellitus without complications; K21.9 Gastro-esophageal reflux disease without esophagitis; E78.00 Pure hypercholesterolemia, unspecified; I11.9 Hypertensive heart disease without heart failure; E03.9 Hypothyroidism, unspecified; Z88.1 Allergy status to other antibiotic agents; Z88.8 Allergy status to other drugs, medicaments and biological substances; Z88.2 Allergy status to sulfonamides; Z91.040 Latex allergy status; W19.XXXA Unspecified fall, initial encounter; Y93.01 Activity, walking, marching and hiking; Y92.89 Other specified places as the place of occurrence of the external cause; Y99.8 Other external cause status
CPT/HCPCS: 36415; 71045; 73502; 73700; 80053; 85025; 85610; 85730; 93005; 96374; 96375; 99285; J1170; J2405

== ENCOUNTER 2018-07-27 10:30 | Inpatient (IN) | payer MEDICARE, BC ==
[~2018-07-27] VITALS: Ht 170.2 cm; Wt 67.6 kg
[2018-07-27 19:22] VITALS: BP 122/71
[2018-07-27] MEDS ORDERED: DONE10TA61 PO (19:55)
[2018-07-27] MEDS ORDERED: PREG75CA PO (19:55)
[2018-07-27] MEDS ORDERED: SERT50TA PO (19:55)
[2018-07-27] MEDS ORDERED: CHOL10002 PO (19:55)
[2018-07-27] MEDS ORDERED: LOSA50TA2 PO (19:55)
[2018-07-27] MEDS ORDERED: MEMA10TA PO (19:55)
[2018-07-27] MEDS ORDERED: VITA1TAB3 PO (19:55)
[2018-07-27] MEDS ORDERED: ENOX40DI SQ (19:55)
[2018-07-27] MEDS ORDERED: GLUC100018 PO (19:55)
[2018-07-27] MEDS ORDERED: GABA800T2 PO (19:55)
[2018-07-27] MEDS ORDERED: MULT-650 PO (19:55)
[2018-07-27] MEDS ORDERED: METO25TA4 PO (19:55)
[2018-07-27] MEDS ORDERED: TRAM50TA PO (19:55)
[2018-07-27] MEDS ORDERED: ACET500T68 PO (19:55)
[2018-07-27] MEDS ORDERED: DICLOFENAC SODIUM 1% TOPICAL GEL 100GM TUBE. TP PRN (20:30)
[2018-07-27] MEDS: ATORVASTATIN CALCIUM 10 MG TABLET. PO SCH (20:59)
[2018-07-27] MEDS: DONEPEZIL HCL 10 MG TABLET PO SCH (21:21)
[2018-07-27] MEDS: MEMANTINE 10 MG TABLET. PO SCH (21:22)
[2018-07-27] MEDS: LOSARTAN 50 MG TABLET. PO SCH (21:22)
[2018-07-27] MEDS: METOPROLOL TART IMMED RELEASE 25 MG TABLET PO SCH (21:22)
[2018-07-27] MEDS: traMADol 50 MG TABLET PO PRN (21:23)
[2018-07-27] MEDS: ENOXAPARIN ** NOTE DOSE ** SYRINGE SQ SCH (21:24)
[2018-07-27 22:25] VITALS: BP 120/66
[2018-07-28 05:53] VITALS: BP 134/75
[2018-07-28] MEDS: traMADol 50 MG TABLET PO PRN ×3 (06:10→21:37)
[2018-07-28 06:28] LABS: BASO % 0 % (0-3); EOS # 0.2 x10^3/uL (0.0-0.7); EOS % 2 % (0-3); HEMATOCRIT 27.3 % (36.0-47.0); HEMOGLOBIN 9.2 g/dL (12.0-15.5); LYMPH # 1.1 x10^3/uL (1.0-4.8); LYMPH % 17 % (24-48); MEAN CORPUSCULAR HEMOGLOBIN 30 pg (25-35); MEAN CORPUSCULAR HGB CONC 34 g/dL (31-37); MEAN CORPUSCULAR VOLUME 89 fL (79-100); MONO # 0.6 x10^3/uL (0.0-1.1); MONO % 9 % (0-9); NEUT # 4.6 x10^3uL (1.8-7.7); NEUT % 71 % (31-73); PLATELET COUNT 238 x10^3/uL (140-400); RED BLOOD COUNT 3.08 x10^6/uL (3.50-5.40); WHITE BLOOD COUNT 6.5 x10^3/uL (4.0-11.0)
[2018-07-28 06:42] LABS: ALBUMIN 2.6 g/dL (3.4-5.0); ALBUMIN/GLOBULIN RATIO 0.6 (1.0-1.7); CALCIUM 9.1 mg/dL (8.5-10.1); CREATININE 0.7 mg/dL (0.6-1.0); GFR 80.1; POTASSIUM 4.4 mmol/L (3.5-5.1); TOTAL BILIRUBIN 1.3 mg/dL (0.2-1.0); TOTAL PROTEIN 6.9 g/dL (6.4-8.2)
[2018-07-28] MEDS ORDERED: CALCIUM CARB/VIT D3 500/200 TABLET PO SCH (08:00)
[2018-07-28] MEDS: VITAMIN B COMPLEX CAPSULE. PO SCH (08:43)
[2018-07-28] MEDS: LOSARTAN 50 MG TABLET. PO SCH ×2 (08:44→20:41)
[2018-07-28] MEDS: OMEGA-3 FATTY ACIDS/FISH OIL 1,000 MG CAPSULE. PO SCH (08:44)
[2018-07-28] MEDS: GLUCOSAMINE 500 MG CAPSULE PO SCH (08:44)
[2018-07-28] MEDS: MEMANTINE 10 MG TABLET. PO SCH ×2 (08:45→20:41)
[2018-07-28] MEDS: METOPROLOL TART IMMED RELEASE 25 MG TABLET PO SCH ×2 (08:45→20:41)
[2018-07-28] MEDS: PREGABALIN 75 MG CAPSULE PO SCH (08:45)
[2018-07-28] MEDS: CHOLECALCIFEROL (VITAMIN D3) 1,000 UNIT TABLET PO SCH (08:46)
[2018-07-28] MEDS: SERTRALINE 50 MG TABLET. PO SCH (08:46)
[2018-07-28] MEDS: MULTIVITAMIN with MINERAL TABLET. PO SCH (08:46)
[2018-07-28] MEDS: ENOXAPARIN ** NOTE DOSE ** SYRINGE SQ SCH ×2 (08:47→20:43)
[2018-07-28] MEDS ORDERED: LEVOTHYROXINE 75 MCG TABLET PO SCH (09:00)
[2018-07-28] MEDS: ACETAMINOPHEN 500 MG TABLET PO PRN (10:10)
[2018-07-28] MEDS ORDERED: WARFARIN 5 MG TABLET. PO ONE (16:00)
[2018-07-28] MEDS: HYDROcodone/APAP 5/325MG 1 TAB TABLET PO PRN (16:40)
[2018-07-28 18:16] VITALS: BP 108/63
[2018-07-28] MEDS: DONEPEZIL HCL 10 MG TABLET PO SCH (20:40)
[2018-07-28] MEDS: ATORVASTATIN CALCIUM 10 MG TABLET. PO SCH (20:41)
[2018-07-28] MEDS: FAMOTIDINE 20 MG TABLET PO SCH (20:42)
[2018-07-28] MEDS ORDERED: FAMOTIDINE 20 MG/2 ML VIAL IVP SCH (21:00)
[2018-07-28] MEDS ORDERED: ENOXAPARIN ** NOTE DOSE ** SYRINGE SQ SCH (21:00)
[2018-07-29 06:00] VITALS: BP 130/71
[2018-07-29] MEDS: LEVOTHYROXINE 75 MCG TABLET PO SCH (06:01)
[2018-07-29] MEDS: HYDROcodone/APAP 5/325MG 1 TAB TABLET PO PRN ×2 (10:00→16:00)
[2018-07-29] MEDS: GLUCOSAMINE 500 MG CAPSULE PO SCH (10:00)
[2018-07-29] MEDS: FAMOTIDINE 20 MG TABLET PO SCH ×2 (10:01→21:19)
[2018-07-29] MEDS: ENOXAPARIN ** NOTE DOSE ** SYRINGE SQ SCH ×2 (10:01→21:21)
[2018-07-29] MEDS: OMEGA-3 FATTY ACIDS/FISH OIL 1,000 MG CAPSULE. PO SCH (10:01)
[2018-07-29] MEDS: MULTIVITAMIN with MINERAL TABLET. PO SCH (10:02)
[2018-07-29] MEDS: CHOLECALCIFEROL (VITAMIN D3) 1,000 UNIT TABLET PO SCH (10:02)
[2018-07-29] MEDS: MEMANTINE 10 MG TABLET. PO SCH ×2 (10:02→21:20)
[2018-07-29] MEDS: PREGABALIN 75 MG CAPSULE PO SCH (10:02)
[2018-07-29] MEDS: METOPROLOL TART IMMED RELEASE 25 MG TABLET PO SCH ×2 (10:02→21:22)
[2018-07-29] MEDS: CALCIUM CARB/VIT D3 500/200 TABLET PO SCH (10:03)
[2018-07-29] MEDS: LOSARTAN 50 MG TABLET. PO SCH ×2 (10:03→21:22)
[2018-07-29] MEDS: SERTRALINE 50 MG TABLET. PO SCH (10:03)
[2018-07-29] MEDS: VITAMIN B COMPLEX CAPSULE. PO SCH (10:03)
[2018-07-29] MEDS: traMADol 50 MG TABLET PO PRN ×2 (12:18→21:19)
[2018-07-29] MEDS ORDERED: WARFARIN 7.5 MG TABLET. PO ONE (16:00)
--- NOTE | 2018-07-29 16:43 | RAD ---
Right knee, 2 views, 07/29/2018: HISTORY: Knee pain A total knee prosthesis is in place in satisfactory position. There is no evidence of fracture or loosening. The bony structures are demineralized. Moderate subcutaneous edema is present. IMPRESSION: 1. A total knee prosthesis is in place. 2. No acute bony abnormality is detected. Electronically signed by: Isauro Martins MD (07/29/2018 4:40 PM) [facility]
--- NOTE | 2018-07-29 16:43 | RAD ---
Right knee, 2 views, 07/29/2018: HISTORY: Knee pain A total knee prosthesis is in place in satisfactory position. There is no evidence of fracture or loosening. The bony structures are demineralized. Moderate subcutaneous edema is present. IMPRESSION: 1. A total knee prosthesis is in place. 2. No acute bony abnormality is detected. Electronically signed by: Isauro Martins MD (07/29/2018 4:40 PM) [facility]
[2018-07-29 18:06] VITALS: BP 98/61
[2018-07-29] MEDS: DONEPEZIL HCL 10 MG TABLET PO SCH (21:18)
[2018-07-29] MEDS: ATORVASTATIN CALCIUM 10 MG TABLET. PO SCH (21:20)
[2018-07-29 21:23] VITALS: BP 113/66
[2018-07-30] MEDS: LEVOTHYROXINE 75 MCG TABLET PO SCH (05:52)
[2018-07-30 06:32] VITALS: BP 114/72
[2018-07-30] MEDS: VITAMIN B COMPLEX CAPSULE. PO SCH (08:11)
[2018-07-30] MEDS: CALCIUM CARB/VIT D3 500/200 TABLET PO SCH (08:11)
[2018-07-30] MEDS: PREGABALIN 75 MG CAPSULE PO SCH (08:11)
[2018-07-30] MEDS: OMEGA-3 FATTY ACIDS/FISH OIL 1,000 MG CAPSULE. PO SCH (08:11)
[2018-07-30] MEDS: MULTIVITAMIN with MINERAL TABLET. PO SCH (08:11)
[2018-07-30] MEDS: METOPROLOL TART IMMED RELEASE 25 MG TABLET PO SCH ×2 (08:11→21:31)
[2018-07-30] MEDS: LOSARTAN 50 MG TABLET. PO SCH ×2 (08:12→21:31)
[2018-07-30] MEDS: SERTRALINE 50 MG TABLET. PO SCH (08:12)
[2018-07-30] MEDS: MEMANTINE 10 MG TABLET. PO SCH ×2 (08:12→21:32)
[2018-07-30] MEDS: CHOLECALCIFEROL (VITAMIN D3) 1,000 UNIT TABLET PO SCH (08:12)
[2018-07-30] MEDS: FAMOTIDINE 20 MG TABLET PO SCH ×2 (08:12→21:31)
[2018-07-30] MEDS: ENOXAPARIN ** NOTE DOSE ** SYRINGE SQ SCH ×2 (08:14→21:00)
[2018-07-30] MEDS: GLUCOSAMINE 500 MG CAPSULE PO SCH (08:15)
[2018-07-30] MEDS: HYDROcodone/APAP 5/325MG 1 TAB TABLET PO PRN ×2 (10:04→21:32)
[2018-07-30] MEDS: traMADol 50 MG TABLET PO PRN (13:45)
[2018-07-30] MEDS ORDERED: WARFARIN 7.5 MG TABLET. PO ONE (16:00)
[2018-07-30 18:16] VITALS: BP 118/69
[2018-07-30] MEDS: DONEPEZIL HCL 10 MG TABLET PO SCH (21:31)
[2018-07-30] MEDS: ATORVASTATIN CALCIUM 10 MG TABLET. PO SCH (21:32)
[2018-07-31] MEDS: LEVOTHYROXINE 75 MCG TABLET PO SCH (05:48)
[2018-07-31 05:49] VITALS: BP 131/74
[2018-07-31] MEDS: FAMOTIDINE 20 MG TABLET PO SCH ×2 (08:13→20:39)
[2018-07-31] MEDS: OMEGA-3 FATTY ACIDS/FISH OIL 1,000 MG CAPSULE. PO SCH (08:13)
[2018-07-31] MEDS: CHOLECALCIFEROL (VITAMIN D3) 1,000 UNIT TABLET PO SCH (08:13)
[2018-07-31] MEDS: HYDROcodone/APAP 5/325MG 1 TAB TABLET PO PRN ×2 (08:13→16:21)
[2018-07-31] MEDS: VITAMIN B COMPLEX CAPSULE. PO SCH (08:13)
[2018-07-31] MEDS: PREGABALIN 75 MG CAPSULE PO SCH (08:14)
[2018-07-31] MEDS: SERTRALINE 50 MG TABLET. PO SCH (08:14)
[2018-07-31] MEDS: METOPROLOL TART IMMED RELEASE 25 MG TABLET PO SCH ×2 (08:14→20:39)
[2018-07-31] MEDS: LOSARTAN 50 MG TABLET. PO SCH ×2 (08:14→20:38)
[2018-07-31] MEDS: MULTIVITAMIN with MINERAL TABLET. PO SCH (08:14)
[2018-07-31] MEDS: CALCIUM CARB/VIT D3 500/200 TABLET PO SCH (08:15)
[2018-07-31] MEDS: MEMANTINE 10 MG TABLET. PO SCH ×2 (08:15→20:39)
[2018-07-31] MEDS: GLUCOSAMINE 500 MG CAPSULE PO SCH (08:17)
[2018-07-31] MEDS: ENOXAPARIN ** NOTE DOSE ** SYRINGE SQ SCH ×2 (08:17→20:41)
[2018-07-31] MEDS: ACETAMINOPHEN 500 MG TABLET PO PRN (12:06)
[2018-07-31] MEDS: traMADol 50 MG TABLET PO PRN (12:06)
[2018-07-31] MEDS ORDERED: WARFARIN 7.5 MG TABLET. PO ONE (16:00)
[2018-07-31 18:14] VITALS: BP 106/61
[2018-07-31] MEDS: DONEPEZIL HCL 10 MG TABLET PO SCH (20:38)
[2018-07-31] MEDS: ATORVASTATIN CALCIUM 10 MG TABLET. PO SCH (20:39)
[2018-08-01 06:25] VITALS: BP 124/71
[2018-08-01] MEDS: LEVOTHYROXINE 75 MCG TABLET PO SCH (06:27)
[2018-08-01] MEDS: HYDROcodone/APAP 5/325MG 1 TAB TABLET PO PRN ×2 (06:29→21:38)
[2018-08-01] MEDS: VITAMIN B COMPLEX CAPSULE. PO SCH (09:37)
[2018-08-01] MEDS: LOSARTAN 50 MG TABLET. PO SCH ×2 (09:38→21:36)
[2018-08-01] MEDS: OMEGA-3 FATTY ACIDS/FISH OIL 1,000 MG CAPSULE. PO SCH (09:38)
[2018-08-01] MEDS: GLUCOSAMINE 500 MG CAPSULE PO SCH (09:38)
[2018-08-01] MEDS: METOPROLOL TART IMMED RELEASE 25 MG TABLET PO SCH ×2 (09:39→21:37)
[2018-08-01] MEDS: MEMANTINE 10 MG TABLET. PO SCH ×2 (09:39→21:37)
[2018-08-01] MEDS: PREGABALIN 75 MG CAPSULE PO SCH (09:39)
[2018-08-01] MEDS: CALCIUM CARB/VIT D3 500/200 TABLET PO SCH (09:39)
[2018-08-01] MEDS: FAMOTIDINE 20 MG TABLET PO SCH ×2 (09:39→21:37)
[2018-08-01] MEDS: MULTIVITAMIN with MINERAL TABLET. PO SCH (09:40)
[2018-08-01] MEDS: ENOXAPARIN ** NOTE DOSE ** SYRINGE SQ SCH (09:40)
[2018-08-01] MEDS: CHOLECALCIFEROL (VITAMIN D3) 1,000 UNIT TABLET PO SCH (09:40)
[2018-08-01] MEDS: SERTRALINE 50 MG TABLET. PO SCH (09:40)
[2018-08-01 18:28] VITALS: BP 137/58
[2018-08-01] MEDS: DONEPEZIL HCL 10 MG TABLET PO SCH (21:36)
[2018-08-01] MEDS: ATORVASTATIN CALCIUM 10 MG TABLET. PO SCH (21:37)
[2018-08-02] MEDS: LEVOTHYROXINE 75 MCG TABLET PO SCH (06:20)
[2018-08-02 06:40] VITALS: BP 106/67
[2018-08-02] MEDS: CALCIUM CARB/VIT D3 500/200 TABLET PO SCH (08:36)
[2018-08-02] MEDS: FAMOTIDINE 20 MG TABLET PO SCH ×2 (08:36→21:12)
[2018-08-02] MEDS: PREGABALIN 75 MG CAPSULE PO SCH (08:37)
[2018-08-02] MEDS: HYDROcodone/APAP 5/325MG 1 TAB TABLET PO PRN ×2 (08:38→21:11)
[2018-08-02] MEDS: CHOLECALCIFEROL (VITAMIN D3) 1,000 UNIT TABLET PO SCH (08:38)
[2018-08-02] MEDS: MEMANTINE 10 MG TABLET. PO SCH ×2 (08:38→21:12)
[2018-08-02] MEDS: LOSARTAN 50 MG TABLET. PO SCH ×2 (08:39→21:13)
[2018-08-02] MEDS: OMEGA-3 FATTY ACIDS/FISH OIL 1,000 MG CAPSULE. PO SCH (08:39)
[2018-08-02] MEDS: VITAMIN B COMPLEX CAPSULE. PO SCH (08:39)
[2018-08-02] MEDS: SERTRALINE 50 MG TABLET. PO SCH (08:40)
[2018-08-02] MEDS: METOPROLOL TART IMMED RELEASE 25 MG TABLET PO SCH ×2 (08:40→21:13)
[2018-08-02] MEDS: MULTIVITAMIN with MINERAL TABLET. PO SCH (08:40)
[2018-08-02] MEDS: GLUCOSAMINE 500 MG CAPSULE PO SCH (08:41)
[2018-08-02] MEDS: WARFARIN 5 MG TABLET. PO SCH (17:26)
[2018-08-02 18:26] VITALS: BP 146/69
[2018-08-02] MEDS: DONEPEZIL HCL 10 MG TABLET PO SCH (21:12)
[2018-08-02] MEDS: ATORVASTATIN CALCIUM 10 MG TABLET. PO SCH (21:12)
[2018-08-03] MEDS: LEVOTHYROXINE 75 MCG TABLET PO SCH (05:37)
[2018-08-03 06:11] VITALS: BP 124/68
[2018-08-03] MEDS: VITAMIN B COMPLEX CAPSULE. PO SCH (08:55)
[2018-08-03] MEDS: LOSARTAN 50 MG TABLET. PO SCH ×2 (08:56→20:32)
[2018-08-03] MEDS: GLUCOSAMINE 500 MG CAPSULE PO SCH (08:57)
[2018-08-03] MEDS: CHOLECALCIFEROL (VITAMIN D3) 1,000 UNIT TABLET PO SCH (08:58)
[2018-08-03] MEDS: SERTRALINE 50 MG TABLET. PO SCH (08:58)
[2018-08-03] MEDS: METOPROLOL TART IMMED RELEASE 25 MG TABLET PO SCH ×2 (08:58→20:32)
[2018-08-03] MEDS: PREGABALIN 75 MG CAPSULE PO SCH (08:58)
[2018-08-03] MEDS: MEMANTINE 10 MG TABLET. PO SCH ×2 (08:58→20:31)
[2018-08-03] MEDS: CALCIUM CARB/VIT D3 500/200 TABLET PO SCH (08:59)
[2018-08-03] MEDS: MULTIVITAMIN with MINERAL TABLET. PO SCH (08:59)
[2018-08-03] MEDS: FAMOTIDINE 20 MG TABLET PO SCH ×2 (08:59→20:31)
[2018-08-03] MEDS: HYDROcodone/APAP 5/325MG 1 TAB TABLET PO PRN ×2 (09:00→20:32)
[2018-08-03] MEDS: OMEGA-3 FATTY ACIDS/FISH OIL 1,000 MG CAPSULE. PO SCH (09:05)
[2018-08-03] MEDS: WARFARIN 5 MG TABLET. PO SCH (17:15)
[2018-08-03 18:40] VITALS: BP 127/69
[2018-08-03] MEDS: DONEPEZIL HCL 10 MG TABLET PO SCH (20:31)
[2018-08-03] MEDS: ATORVASTATIN CALCIUM 10 MG TABLET. PO SCH (20:31)
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
[2018-08-04] MEDS: LEVOTHYROXINE 75 MCG TABLET PO SCH (05:42)
[2018-08-04 05:54] VITALS: BP 134/76
[2018-08-04] MEDS: GLUCOSAMINE 500 MG CAPSULE PO SCH (08:15)
[2018-08-04] MEDS: CHOLECALCIFEROL (VITAMIN D3) 1,000 UNIT TABLET PO SCH (08:15)
[2018-08-04] MEDS: VITAMIN B COMPLEX CAPSULE. PO SCH (08:15)
[2018-08-04] MEDS: CALCIUM CARB/VIT D3 500/200 TABLET PO SCH (08:16)
[2018-08-04] MEDS: MEMANTINE 10 MG TABLET. PO SCH ×2 (08:16→19:49)
[2018-08-04] MEDS: HYDROcodone/APAP 5/325MG 1 TAB TABLET PO PRN (08:16)
[2018-08-04] MEDS: FAMOTIDINE 20 MG TABLET PO SCH ×2 (08:16→19:48)
[2018-08-04] MEDS: METOPROLOL TART IMMED RELEASE 25 MG TABLET PO SCH ×2 (08:16→19:49)
[2018-08-04] MEDS: SERTRALINE 50 MG TABLET. PO SCH (08:17)
[2018-08-04] MEDS: MULTIVITAMIN with MINERAL TABLET. PO SCH (08:17)
[2018-08-04] MEDS: LOSARTAN 50 MG TABLET. PO SCH ×2 (08:17→19:49)
[2018-08-04] MEDS: PREGABALIN 75 MG CAPSULE PO SCH (08:17)
[2018-08-04] MEDS: OMEGA-3 FATTY ACIDS/FISH OIL 1,000 MG CAPSULE. PO SCH (08:22)
[2018-08-04] MEDS: WARFARIN 5 MG TABLET. PO SCH (16:59)
[2018-08-04 18:11] VITALS: BP 103/61
[2018-08-04] MEDS: DONEPEZIL HCL 10 MG TABLET PO SCH (19:48)
[2018-08-04] MEDS: ATORVASTATIN CALCIUM 10 MG TABLET. PO SCH (19:48)
[2018-08-05] MEDS: LEVOTHYROXINE 75 MCG TABLET PO SCH (06:12)
[2018-08-05 06:20] VITALS: BP 128/73
[2018-08-05] MEDS: VITAMIN B COMPLEX CAPSULE. PO SCH (09:08)
[2018-08-05] MEDS: GLUCOSAMINE 500 MG CAPSULE PO SCH (09:08)
[2018-08-05] MEDS: LOSARTAN 50 MG TABLET. PO SCH ×2 (09:08→21:28)
[2018-08-05] MEDS: OMEGA-3 FATTY ACIDS/FISH OIL 1,000 MG CAPSULE. PO SCH (09:08)
[2018-08-05] MEDS: CHOLECALCIFEROL (VITAMIN D3) 1,000 UNIT TABLET PO SCH (09:09)
[2018-08-05] MEDS: FAMOTIDINE 20 MG TABLET PO SCH ×2 (09:09→21:27)
[2018-08-05] MEDS: CALCIUM CARB/VIT D3 500/200 TABLET PO SCH (09:09)
[2018-08-05] MEDS: PREGABALIN 75 MG CAPSULE PO SCH (09:09)
[2018-08-05] MEDS: METOPROLOL TART IMMED RELEASE 25 MG TABLET PO SCH ×2 (09:09→21:27)
[2018-08-05] MEDS: MULTIVITAMIN with MINERAL TABLET. PO SCH (09:09)
[2018-08-05] MEDS: MEMANTINE 10 MG TABLET. PO SCH ×2 (09:09→21:27)
[2018-08-05] MEDS: SERTRALINE 50 MG TABLET. PO SCH (09:09)
[2018-08-05] MEDS: HYDROcodone/APAP 5/325MG 1 TAB TABLET PO PRN ×2 (09:20→21:28)
[2018-08-05] MEDS: WARFARIN 5 MG TABLET. PO SCH (16:38)
[2018-08-05 18:49] VITALS: BP 128/69
[2018-08-05] MEDS: ATORVASTATIN CALCIUM 10 MG TABLET. PO SCH (21:27)
[2018-08-05] MEDS: DONEPEZIL HCL 10 MG TABLET PO SCH (21:28)
[2018-08-06 06:02] VITALS: BP 126/72
[2018-08-06] MEDS: LEVOTHYROXINE 75 MCG TABLET PO SCH (06:03)
[2018-08-06 06:50] LABS: BASO % 1 % (0-3); EOS # 0.3 x10^3/uL (0.0-0.7); EOS % 4 % (0-3); HEMATOCRIT 24.3 % (36.0-47.0); HEMOGLOBIN 8.1 g/dL (12.0-15.5); LYMPH # 1.1 x10^3/uL (1.0-4.8); LYMPH % 17 % (24-48); MEAN CORPUSCULAR HEMOGLOBIN 29 pg (25-35); MEAN CORPUSCULAR HGB CONC 33 g/dL (31-37); MEAN CORPUSCULAR VOLUME 89 fL (79-100); MONO # 0.5 x10^3/uL (0.0-1.1); MONO % 8 % (0-9); NEUT # 4.4 x10^3uL (1.8-7.7); NEUT % 70 % (31-73); PLATELET COUNT 452 x10^3/uL (140-400); RED BLOOD COUNT 2.75 x10^6/uL (3.50-5.40); RED CELL DISTRIBUTION WIDTH 16.9 % (11.5-14.5); WHITE BLOOD COUNT 6.3 x10^3/uL (4.0-11.0)
[2018-08-06 06:57] LABS: ALBUMIN 2.5 g/dL (3.4-5.0); ALBUMIN/GLOBULIN RATIO 0.6 (1.0-1.7); CREATININE 0.7 mg/dL (0.6-1.0); GFR 80.1; POTASSIUM 4.2 mmol/L (3.5-5.1); TOTAL BILIRUBIN 1.2 mg/dL (0.2-1.0)
[2018-08-06] MEDS: CALCIUM CARB/VIT D3 500/200 TABLET PO SCH (08:13)
[2018-08-06] MEDS: OMEGA-3 FATTY ACIDS/FISH OIL 1,000 MG CAPSULE. PO SCH (08:14)
[2018-08-06] MEDS: CHOLECALCIFEROL (VITAMIN D3) 1,000 UNIT TABLET PO SCH (08:14)
[2018-08-06] MEDS: VITAMIN B COMPLEX CAPSULE. PO SCH (08:14)
[2018-08-06] MEDS: PREGABALIN 75 MG CAPSULE PO SCH (08:14)
[2018-08-06] MEDS: LOSARTAN 50 MG TABLET. PO SCH ×2 (08:14→20:00)
[2018-08-06] MEDS: MULTIVITAMIN with MINERAL TABLET. PO SCH (08:14)
[2018-08-06] MEDS: SERTRALINE 50 MG TABLET. PO SCH (08:14)
[2018-08-06] MEDS: MEMANTINE 10 MG TABLET. PO SCH ×2 (08:15→20:00)
[2018-08-06] MEDS: METOPROLOL TART IMMED RELEASE 25 MG TABLET PO SCH ×2 (08:15→20:01)
[2018-08-06] MEDS: FAMOTIDINE 20 MG TABLET PO SCH ×2 (08:15→20:00)
[2018-08-06] MEDS: GLUCOSAMINE 500 MG CAPSULE PO SCH (08:18)
--- NOTE | 2018-08-06 09:45 | RAD ---
Right lower extremity ultrasound study compared to right hip x-rays dated July 21, 2018 for anterior right thigh lump, status post hip replacement. TECHNIQUE AND FINDINGS: Real-time grayscale imaging of the right upper thigh at the area of interest is performed. There is a complex superficial fluid collection measuring 6.3 x 2.8 x 1.2 cm, beneath the patient's surgical scar. This fluid collection extends the length of the scar, but is at its largest along the caudal margin. No adjacent edema is identified. No adjacent hypervascularity is evident. IMPRESSION: 1. 6.3 cm complex fluid collection within the subcutaneous tissues in approximation to the patient's surgical scar. The absence of adjacent subcutaneous edema and hypervascularity would favor a bland hematoma, however clinical correlation is recommended. Electronically signed by: Umer Koenig MD (08/06/2018 9:42 AM) [id number]
[2018-08-06 18:31] VITALS: BP 120/70
[2018-08-06] MEDS: DONEPEZIL HCL 10 MG TABLET PO SCH (20:00)
[2018-08-06] MEDS: ATORVASTATIN CALCIUM 10 MG TABLET. PO SCH (20:00)
--- NOTE | 2018-08-07 04:30 | PN ---
DATE: 08/06/2018 HISTORY OF PRESENT ILLNESS: The patient was seen today at the request of the nursing staff as the patient has been complaining of pain in her right hip. The nursing staff stated that they noted a large lump on the anterior aspect of her right hip joint along the surgical incision for open reduction and internal fixation for her right hip fracture. When she initially came here, she was complaining more of pain in her right shoulder and knee joints. However, lately she has been complaining more of her pain in the right hip joint. PHYSICAL EXAMINATION: GENERAL: When I examined her, she was resting slightly propped up in bed, in no apparent distress. She is very confused, pale, but no jaundice, cyanosis, or thyromegaly. No jugular venous distension. No limb edema. VITAL SIGNS: Her heart rate was 88, blood pressure was 126/72, temperature was 98.4, respiratory rate was 20, and oxygen saturation was 96% on room air. HEAD, EYES, EARS, NOSE AND THROAT: Showed normocephalic, atraumatic. NECK: Supple. HEART: Showed normal first and second heart sounds with no gallop, rub or murmur. CHEST: Clear to auscultation. No crepitation or rhonchi. ABDOMEN: Distended, soft, and nontender. NEUROLOGIC: She is awake, alert, responding appropriately. She is awake, alert but actually confused. All her cranial nerves intact. She moves extremities without difficulty. HIP: Examination of right hip showed that she has a palpable mass with no overlying tenderness or erythema. LABORATORY DATA: I did repeat her lab work and arranged for her to have ultrasound of the right hip area. Her white cell count was 6300. hemoglobin is down to 8.1, hematocrit 24.3, her MCV was 89 and platelet count of 452,000. Her chemistry showed a serum sodium of 139, potassium 4.2, chloride 104, bicarbonate 28, anion gap of 7, BUN 18, creatinine 0.7, estimated GFR was 80 mL per minute. Her glucose was 106, calcium was 9. Total bilirubin, AST, ALT, alkaline phosphatase are all elevated; however, total protein was 7, albumin was 2.5. His prothrombin time as of 08/04/2018 was 20.7, INR of 2.2. PLAN: My plan is to check her PT/INR again, and I will probably hold her Coumadin and contact Dr. ____, the orthopedic surgeon. The patient is known to have atrial fibrillation, status post ablation; however, her hemoglobin is trending down. We will monitor her H and H closely and if needs be, we will transfuse her 1 unit of packed RBCs. DIANA LORENZANA MD DR: JAIME/hector JOB#: [id number] / [id number]
[2018-08-07 06:11] VITALS: BP 123/55
[2018-08-07 06:30] LABS: HEMATOCRIT 24.5 % (36.0-47.0); HEMOGLOBIN 8.3 g/dL (12.0-15.5)
[2018-08-07] MEDS: LEVOTHYROXINE 75 MCG TABLET PO SCH (06:37)
[2018-08-07] MEDS: VITAMIN B COMPLEX CAPSULE. PO SCH (08:40)
[2018-08-07] MEDS: OMEGA-3 FATTY ACIDS/FISH OIL 1,000 MG CAPSULE. PO SCH (08:41)
[2018-08-07] MEDS: LOSARTAN 50 MG TABLET. PO SCH ×2 (08:41→20:11)
[2018-08-07] MEDS: METOPROLOL TART IMMED RELEASE 25 MG TABLET PO SCH ×2 (08:42→20:08)
[2018-08-07] MEDS: GLUCOSAMINE 500 MG CAPSULE PO SCH (08:42)
[2018-08-07] MEDS: PREGABALIN 75 MG CAPSULE PO SCH (08:43)
[2018-08-07] MEDS: MEMANTINE 10 MG TABLET. PO SCH ×2 (08:43→20:08)
[2018-08-07] MEDS: FAMOTIDINE 20 MG TABLET PO SCH ×2 (08:43→20:08)
[2018-08-07] MEDS: MULTIVITAMIN with MINERAL TABLET. PO SCH (08:43)
[2018-08-07] MEDS: CALCIUM CARB/VIT D3 500/200 TABLET PO SCH (08:43)
[2018-08-07] MEDS: SERTRALINE 50 MG TABLET. PO SCH (08:44)
[2018-08-07] MEDS: CHOLECALCIFEROL (VITAMIN D3) 1,000 UNIT TABLET PO SCH (08:44)
[2018-08-07] MEDS: ACETAMINOPHEN 500 MG TABLET PO PRN (16:10)
[2018-08-07 19:53] VITALS: BP 111/64
[2018-08-07] MEDS: DONEPEZIL HCL 10 MG TABLET PO SCH (20:08)
[2018-08-07] MEDS: ATORVASTATIN CALCIUM 10 MG TABLET. PO SCH (20:08)
[2018-08-08] MEDS: LEVOTHYROXINE 75 MCG TABLET PO SCH (05:13)
[2018-08-08 05:38] VITALS: BP 130/67
[2018-08-08] MEDS: PREGABALIN 75 MG CAPSULE PO SCH (08:02)
[2018-08-08] MEDS: CHOLECALCIFEROL (VITAMIN D3) 1,000 UNIT TABLET PO SCH (08:02)
[2018-08-08] MEDS: LOSARTAN 50 MG TABLET. PO SCH ×2 (08:03→21:00)
[2018-08-08] MEDS: MEMANTINE 10 MG TABLET. PO SCH ×2 (08:03→21:00)
[2018-08-08] MEDS: VITAMIN B COMPLEX CAPSULE. PO SCH (08:03)
[2018-08-08] MEDS: OMEGA-3 FATTY ACIDS/FISH OIL 1,000 MG CAPSULE. PO SCH (08:03)
[2018-08-08] MEDS: CALCIUM CARB/VIT D3 500/200 TABLET PO SCH (08:03)
[2018-08-08] MEDS: FAMOTIDINE 20 MG TABLET PO SCH ×2 (08:03→20:59)
[2018-08-08] MEDS: MULTIVITAMIN with MINERAL TABLET. PO SCH (08:03)
[2018-08-08] MEDS: SERTRALINE 50 MG TABLET. PO SCH (08:04)
[2018-08-08] MEDS: GLUCOSAMINE 500 MG CAPSULE PO SCH (08:07)
[2018-08-08] MEDS: METOPROLOL TART IMMED RELEASE 25 MG TABLET PO SCH ×2 (08:07→21:00)
[2018-08-08] MEDS: traMADol 50 MG TABLET PO PRN ×2 (08:16→20:59)
[2018-08-08 17:49] VITALS: BP 114/67
[2018-08-08] MEDS: DONEPEZIL HCL 10 MG TABLET PO SCH (20:59)
[2018-08-08] MEDS: ATORVASTATIN CALCIUM 10 MG TABLET. PO SCH (21:00)
[2018-08-09 05:46] VITALS: BP 125/71
[2018-08-09] MEDS: LEVOTHYROXINE 75 MCG TABLET PO SCH (05:51)
[2018-08-09] MEDS: PREGABALIN 75 MG CAPSULE PO SCH (08:07)
[2018-08-09] MEDS: CALCIUM CARB/VIT D3 500/200 TABLET PO SCH (08:07)
[2018-08-09] MEDS: MULTIVITAMIN with MINERAL TABLET. PO SCH (08:07)
[2018-08-09] MEDS: OMEGA-3 FATTY ACIDS/FISH OIL 1,000 MG CAPSULE. PO SCH (08:07)
[2018-08-09] MEDS: METOPROLOL TART IMMED RELEASE 25 MG TABLET PO SCH ×2 (08:07→20:57)
[2018-08-09] MEDS: FAMOTIDINE 20 MG TABLET PO SCH ×2 (08:07→20:57)
[2018-08-09] MEDS: VITAMIN B COMPLEX CAPSULE. PO SCH (08:07)
[2018-08-09] MEDS: CHOLECALCIFEROL (VITAMIN D3) 1,000 UNIT TABLET PO SCH (08:08)
[2018-08-09] MEDS: SERTRALINE 50 MG TABLET. PO SCH (08:08)
[2018-08-09] MEDS: LOSARTAN 50 MG TABLET. PO SCH ×2 (08:08→20:56)
[2018-08-09] MEDS: MEMANTINE 10 MG TABLET. PO SCH ×2 (08:08→20:57)
[2018-08-09] MEDS: traMADol 50 MG TABLET PO PRN ×2 (08:08→20:57)
[2018-08-09] MEDS: GLUCOSAMINE 500 MG CAPSULE PO SCH (08:09)
[2018-08-09 18:06] VITALS: BP 115/68
[2018-08-09] MEDS: DONEPEZIL HCL 10 MG TABLET PO SCH (20:56)
[2018-08-09] MEDS: ATORVASTATIN CALCIUM 10 MG TABLET. PO SCH (20:56)
[2018-08-10 05:24] VITALS: BP 117/69
[2018-08-10] MEDS: LEVOTHYROXINE 75 MCG TABLET PO SCH (06:08)
[2018-08-10] MEDS: CALCIUM CARB/VIT D3 500/200 TABLET PO SCH (08:48)
[2018-08-10] MEDS: SERTRALINE 50 MG TABLET. PO SCH (08:48)
[2018-08-10] MEDS: FAMOTIDINE 20 MG TABLET PO SCH ×2 (08:49→20:54)
[2018-08-10] MEDS: PREGABALIN 75 MG CAPSULE PO SCH (08:49)
[2018-08-10] MEDS: MEMANTINE 10 MG TABLET. PO SCH ×2 (08:49→20:55)
[2018-08-10] MEDS: VITAMIN B COMPLEX CAPSULE. PO SCH (08:49)
[2018-08-10] MEDS: LOSARTAN 50 MG TABLET. PO SCH ×2 (08:49→20:54)
[2018-08-10] MEDS: OMEGA-3 FATTY ACIDS/FISH OIL 1,000 MG CAPSULE. PO SCH (08:49)
[2018-08-10] MEDS: CHOLECALCIFEROL (VITAMIN D3) 1,000 UNIT TABLET PO SCH (08:49)
[2018-08-10] MEDS: MULTIVITAMIN with MINERAL TABLET. PO SCH (08:49)
[2018-08-10] MEDS: METOPROLOL TART IMMED RELEASE 25 MG TABLET PO SCH ×2 (08:50→20:54)
[2018-08-10] MEDS: GLUCOSAMINE 500 MG CAPSULE PO SCH (08:50)
[2018-08-10 11:37] LABS: HEMATOCRIT 26.2 % (36.0-47.0); HEMOGLOBIN 8.6 g/dL (12.0-15.5); RED BLOOD COUNT 2.96 x10^6/uL (3.50-5.40); RED CELL DISTRIBUTION WIDTH 16.9 % (11.5-14.5); WHITE BLOOD COUNT 5.7 x10^3/uL (4.0-11.0)
[2018-08-10 18:09] VITALS: BP 120/69
[2018-08-10] MEDS: ATORVASTATIN CALCIUM 10 MG TABLET. PO SCH (20:54)
[2018-08-10] MEDS: traMADol 50 MG TABLET PO PRN (20:55)
[2018-08-10] MEDS: DONEPEZIL HCL 10 MG TABLET PO SCH (20:55)
[2018-08-11] MEDS: LEVOTHYROXINE 75 MCG TABLET PO SCH (05:44)
[2018-08-11 05:49] VITALS: BP 129/73
[2018-08-11] MEDS: FAMOTIDINE 20 MG TABLET PO SCH ×2 (08:31→23:22)
[2018-08-11] MEDS: CALCIUM CARB/VIT D3 500/200 TABLET PO SCH (08:31)
[2018-08-11] MEDS: VITAMIN B COMPLEX CAPSULE. PO SCH (08:31)
[2018-08-11] MEDS: CHOLECALCIFEROL (VITAMIN D3) 1,000 UNIT TABLET PO SCH (08:31)
[2018-08-11] MEDS: METOPROLOL TART IMMED RELEASE 25 MG TABLET PO SCH ×2 (08:32→23:22)
[2018-08-11] MEDS: MEMANTINE 10 MG TABLET. PO SCH ×2 (08:37→23:22)
[2018-08-11] MEDS: LOSARTAN 50 MG TABLET. PO SCH ×2 (08:37→23:23)
[2018-08-11] MEDS: SERTRALINE 50 MG TABLET. PO SCH (08:37)
[2018-08-11] MEDS: MULTIVITAMIN with MINERAL TABLET. PO SCH (08:37)
[2018-08-11] MEDS: OMEGA-3 FATTY ACIDS/FISH OIL 1,000 MG CAPSULE. PO SCH (08:37)
[2018-08-11] MEDS: PREGABALIN 75 MG CAPSULE PO SCH (08:37)
[2018-08-11] MEDS: GLUCOSAMINE 500 MG CAPSULE PO SCH (08:38)
[2018-08-11] MEDS: HYDROcodone/APAP 5/325MG 1 TAB TABLET PO PRN ×2 (08:40→14:42)
[2018-08-11 18:17] VITALS: BP 106/63
[2018-08-11] MEDS: DONEPEZIL HCL 10 MG TABLET PO SCH (23:22)
[2018-08-11] MEDS: ATORVASTATIN CALCIUM 10 MG TABLET. PO SCH (23:23)
[2018-08-12] MEDS: LEVOTHYROXINE 75 MCG TABLET PO SCH (06:12)
[2018-08-12 06:30] VITALS: BP 124/73
[2018-08-12 06:41] LABS: BASO % 1 % (0-3); EOS # 0.3 x10^3/uL (0.0-0.7); EOS % 5 % (0-3); HEMATOCRIT 27.2 % (36.0-47.0); HEMOGLOBIN 8.9 g/dL (12.0-15.5); LYMPH # 1.1 x10^3/uL (1.0-4.8); LYMPH % 19 % (24-48); MEAN CORPUSCULAR HEMOGLOBIN 29 pg (25-35); MEAN CORPUSCULAR HGB CONC 33 g/dL (31-37); MEAN CORPUSCULAR VOLUME 88 fL (79-100); MONO # 0.4 x10^3/uL (0.0-1.1); MONO % 8 % (0-9); NEUT # 3.8 x10^3uL (1.8-7.7); NEUT % 68 % (31-73); PLATELET COUNT 370 x10^3/uL (140-400); RED BLOOD COUNT 3.09 x10^6/uL (3.50-5.40); RED CELL DISTRIBUTION WIDTH 16.9 % (11.5-14.5); WHITE BLOOD COUNT 5.5 x10^3/uL (4.0-11.0)
[2018-08-12] MEDS: VITAMIN B COMPLEX CAPSULE. PO SCH (09:59)
[2018-08-12] MEDS: SERTRALINE 50 MG TABLET. PO SCH (10:00)
[2018-08-12] MEDS: PREGABALIN 75 MG CAPSULE PO SCH (10:00)
[2018-08-12] MEDS: FAMOTIDINE 20 MG TABLET PO SCH ×2 (10:00→21:07)
[2018-08-12] MEDS: MULTIVITAMIN with MINERAL TABLET. PO SCH (10:00)
[2018-08-12] MEDS: OMEGA-3 FATTY ACIDS/FISH OIL 1,000 MG CAPSULE. PO SCH (10:01)
[2018-08-12] MEDS: CALCIUM CARB/VIT D3 500/200 TABLET PO SCH (10:01)
[2018-08-12] MEDS: METOPROLOL TART IMMED RELEASE 25 MG TABLET PO SCH ×2 (10:01→21:07)
[2018-08-12] MEDS: CHOLECALCIFEROL (VITAMIN D3) 1,000 UNIT TABLET PO SCH (10:01)
[2018-08-12] MEDS: MEMANTINE 10 MG TABLET. PO SCH ×2 (10:01→21:06)
[2018-08-12] MEDS: LOSARTAN 50 MG TABLET. PO SCH ×2 (10:02→21:07)
[2018-08-12] MEDS: GLUCOSAMINE 500 MG CAPSULE PO SCH (10:03)
--- NOTE | 2018-08-12 17:46 | PDOC ---
Exam Note: Wesley Note: Please also refer to the separate dictated note~for this date of service dictated separately.~Patient seen individually. Discussed the patient with Nursing staff reviewed the chart.~Reviewed interim history and current functioning. Reviewed vital signs,~Labs/ Radiology~and current medications noted below. Continue current treatment with the changes noted in the dictated addendum note Assessment: Vital Signs: Vital Signs Date Time Temp Pulse Resp B/P (MAP) Pulse Ox O2 Delivery O2 Flow Rate FiO2 08/12/18 10:02 84 124/73 08/12/18 08:00 Room Air 08/12/18 06:30 98.6 20 95 I&O Intake and Output 08/12/18 07:00 Intake Total 1350 ml Balance 1350 ml Intake Oral 1350 ml # Voids 5 # Bowel Movements 1 Labs: Laboratory Tests Test 08/12/18 06:26 White Blood Count 5.5 x10^3/uL (4.0-11.0) Red Blood Count 3.09 x10^6/uL (3.50-5.40) L Hemoglobin 8.9 g/dL (12.0-15.5) L Hematocrit 27.2 % (36.0-47.0) L Mean Corpuscular Volume 88 fL (79-100) Mean Corpuscular Hemoglobin 29 pg (25-35) Mean Corpuscular Hemoglobin Concent 33 g/dL (31-37) Red Cell Distribution Width 16.9 % (11.5-14.5) H Platelet Count 370 x10^3/uL (140-400) Neutrophils (%) (Auto) 68 % (31-73) Lymphocytes (%) (Auto) 19 % (24-48) L Monocytes (%) (Auto) 8 % (0-9) Eosinophils (%) (Auto) 5 % (0-3) H Basophils (%) (Auto) 1 % (0-3) Neutrophils # (Auto) 3.8 x10^3uL (1.8-7.7) Lymphocytes # (Auto) 1.1 x10^3/uL (1.0-4.8) Monocytes # (Auto) 0.4 x10^3/uL (0.0-1.1) Eosinophils # (Auto) 0.3 x10^3/uL (0.0-0.7) Basophils # (Auto) 0.0 x10^3/uL (0.0-0.2) Current Medications: Meds: Current Medications Vitamin D (Vitamin D3) 1,000 unit DAILY PO Last administered on 08/12/18 10: 01; Start 07/28/18 at 09:00 Diclofenac Sodium (Voltaren) 4 joni PRN QID PRN TP PAIN; Start 07/27/18 at 20:30 Losartan Potassium (Cozaar) 50 mg BID PO Last administered on 08/12/18at 10:02 ; Start 07/27/18 at 21:00 Metoprolol Tartrate (Lopressor) 25 mg BID PO Last administered on 08/12/18 10 :01; Start 07/27/18 at 21:00 Pregabalin (Lyrica) 75 mg DAILY PO Last administered on 08/12/18 10:00; Start 07/28/18 at 09:00 Sertraline HCl (Zoloft) 50 mg DAILY PO Last administered on 08/12/18 10:00; Start 07/28/18 at 09:00 Tramadol HCl (Ultram) 50 mg PRN Q6HRS PRN PO PAIN Last administered on at 20:55; Start 07/27/18 at 20:30 Acetaminophen (Tylenol) 500 mg PRN Q6HRS PRN PO PAIN / TEMP Last administered on 08/07/18at 16:10; Start 07/27/18 at 20:30 Atorvastatin Calcium (Lipitor) 10 mg QHS PO Last administered on 08/11/18at 23: 23; Start 07/27/18 at 21:00 Calcium/Vitamin D (Oscal D 500mg/ 200uts) 1 tab DAILY PO Last administered on 07/28/18at 08:42; Start 07/28/18 at 08:00; Stop 07/28/18 at 10:31; Status DC Donepezil HCl (Aricept) 10 mg QHS PO Last administered on 08/11/18at 23:22; Start 07/27/18 at 21:00 Enoxaparin Sodium (Lovenox 60mg Syringe) 60 mg Q12HR SQ Last administered on at 08:47; Start 07/27/18 at 21:00; Stop 07/28/18 at 13:03; Status DC Glucosamine Sulfate (Glucosamine) 1,000 mg DAILY PO Last administered on 10:03; Start 07/28/18 at 09:00 Levothyroxine Sodium (Synthroid) 75 mcg DAILY PO Last administered on at 08:45; Start 07/28/18 at 09:00; Stop 07/28/18 at 13:00; Status DC Memantine (Namenda) 10 mg BID PO Last administered on 08/12/18 10:01; Start 07/27/18 at 21:00 Multivitamins/ Calcium (Thera-M Plus) 1 tab DAILY PO Last administered on 08/12 10:00; Start 07/28/18 at 09:00 Fish Oil (Fish Oil) 1,000 mg DAILY PO Last administered on 08/12/18 10:01; Start 07/28/18 at 09:00 Vitamin B Complex 1 cap DAILY PO Last administered on 08/12/18 09:59; Start 07/28/18 at 09:00 Warfarin Sodium (Coumadin) 5 mg 1X WARF ONCE PO Last administered on at 16:35; Start 07/28/18 at 16:00; Stop 07/28/18 at 16:01; Status DC Warfarin Sodium (Coumadin Per Pharmacy) 1 each PRN DAILY PRN MC SEE COMMENTS Last administered on 08/04/18at 08:37; Start 07/27/18 at 20:45; Stop 08/06/18 at 14:42; Status DC Influenza Virus Vaccine (Afluria Trivalent [id number] Syringe) 0.5 ml ONCE ONCE VAX IM Last administered on 07/30/18at 05:56; Start 07/29/18 at 09:00; Stop 07/29/18 at 09:01; Status DC Calcium/Vitamin D (Oscal D 500mg/ 200uts) 1 tab DAILY PO Last administered on 08/12/18 10:01; Start 07/29/18 at 09:00 Levothyroxine Sodium (Synthroid) 75 mcg DAILY06 PO Last administered on at 06:12; Start 07/29/18 at 06:00 Enoxaparin Sodium (Lovenox 80mg Syringe) 80 mg Q12HR SQ ; Start 07/28/18 at 21: 00; Stop 07/28/18 at 21:00; Status DC Enoxaparin Sodium (Lovenox 80mg Syringe) 70 mg Q12HR SQ Last administered on at 09:40; Start 07/28/18 at 21:00; Stop 08/01/18 at 09:56; Status DC Famotidine (Pepcid Vial) 20 mg BID IVP ; Start 07/28/18 at 21:00; Stop at 21:00; Status DC Acetaminophen/ Hydrocodone Bitart (Lortab 5/325) 1 tab PRN Q6HRS PRN PO PAIN Last administered on 08/11/18at 14:42; Start 07/28/18 at 16:00 Famotidine (Pepcid) 20 mg BID PO Last administered on 08/12/18at 10:00; Start 07/28/18 at 21:00 Warfarin Sodium (Coumadin) 7.5 mg 1X WARF ONCE PO Last administered on at 16:01; Start 07/29/18 at 16:00; Stop 07/29/18 at 16:01; Status DC Warfarin Sodium (Coumadin) 7.5 mg 1X WARF ONCE PO Last administered on at 15:51; Start 07/30/18 at 16:00; Stop 07/30/18 at 16:01; Status DC Warfarin Sodium (Coumadin) 7.5 mg 1X WARF ONCE PO Last administered on at 16:21; Start 07/31/18 at 16:00; Stop 07/31/18 at 16:01; Status DC Warfarin Sodium (Coumadin - No Dose Today) 1 each 1X WARF ONCE MC ; Start at 16:00; Stop 08/01/18 at 16:01; Status DC Warfarin Sodium (Coumadin) 5 mg DAILY16 PO Last administered on 08/05/18at 16: 38; Start 08/02/18 at 16:00; Stop 08/06/18 at 14:32; Status DC Warfarin Sodium (Coumadin Per Physician) 1 each PRN DAILY PRN MC SEE COMMENTS; Start 08/06/18 at 14:45 Active Scripts Active Reported Vitamin D (Cholecalciferol (Vitamin D3)) 1,000 Unit Tablet 1,000 Unit PO DAILY Tramadol Hcl (Tramadol HCl) 50 Mg Tablet 50 Mg PO PRN Q6HRS PRN Zoloft (Sertraline Hcl) 50 Mg Tablet 50 Mg PO DAILY Metoprolol Tartrate 25 Mg Tablet 25 Mg PO BID Namenda (Memantine Hcl) 10 Mg Tablet 10 Mg PO BID Lyrica (Pregabalin) 75 Mg Capsule 75 Mg PO DAILY Glucosamine (Glucosamine Sulfate 2KCL) 1,000 Mg Tablet 1,000 Mg PO DAILY Gabapentin 800 Mg Tablet 400 Mg PO 0900,1200 Lovenox (Enoxaparin Sodium) 40 Mg/0.4 Ml Disp.syrin 60 Mg SQ BID Aricept (Donepezil Hcl) 10 Mg Tablet 10 Mg PO QHS Cozaar (Losartan Potassium) 50 Mg Tablet 50 Mg PO BID Centrum Silver Women Tablet (Multivits-Min/Iron/FA/Lutein) 1 Each Tablet 1 Each PO DAILY Acetaminophen 500 Mg Tablet 500 Mg PO PRN Q6HRS PRN Vitamin B Complex 1 Each Tablet 1 Each PO DAILY Warfarin Sodium 5 Mg Tablet 5 Mg PO DAILY16 Voltaren (Diclofenac Sodium) 100 Gm Gel..gram. 4 Gm TP PRN QID PRN Tele[place] 3 1,000 Mg Softgel ([place]-3 Fatty Acids/Fish Oil) 1 Each Capsule 1 Each PO DAILY supplement for heart health. Last dose: 03/01 @ 8:54 AM. Next dose: 03/02 AM. Caltrate 600 + D Tablet (Calcium Carbonate/Vitamin D3) 1 Each Tablet 1 Each PO DAILY supplement. Next dose: 03/01 @ 8:54 AM. Next dose: 03/02 AM Tirosint (Levothyroxine Sodium) 75 Mcg Capsule 75 Mcg PO DAILY for thyroid. Last dose: 03/01 @ 5:41 AM. Next dose: 03/02 AM. Lipitor (Atorvastatin Calcium) 10 Mg Tablet 10 Mg PO QHS For high cholesterol. Last dose: 02/28 @ 16:13 PM. Next dose: 03/01 @ 4 PM. I have reviewed the current psychotropics carefully including drug interactions. Risk benefit ratio favors no change other than as noted in my dictated progress note. Diagnosis: Problems: (1) Anxiety disorder (2) Recurrent falls KRYSTA JARVIS MD Aug 12, 2018 17:46
[2018-08-12 18:47] VITALS: BP 131/67
[2018-08-12] MEDS: ATORVASTATIN CALCIUM 10 MG TABLET. PO SCH (21:06)
[2018-08-12] MEDS: DONEPEZIL HCL 10 MG TABLET PO SCH (21:06)
[2018-08-12] MEDS: HYDROcodone/APAP 5/325MG 1 TAB TABLET PO PRN (22:33)
[2018-08-13] MEDS: LEVOTHYROXINE 75 MCG TABLET PO SCH (06:06)
[2018-08-13 06:20] VITALS: BP 144/74
[2018-08-13] MEDS: OMEGA-3 FATTY ACIDS/FISH OIL 1,000 MG CAPSULE. PO SCH (08:30)
[2018-08-13] MEDS: METOPROLOL TART IMMED RELEASE 25 MG TABLET PO SCH ×2 (08:30→21:45)
[2018-08-13] MEDS: MULTIVITAMIN with MINERAL TABLET. PO SCH (08:31)
[2018-08-13] MEDS: LOSARTAN 50 MG TABLET. PO SCH ×2 (08:31→21:41)
[2018-08-13] MEDS: CALCIUM CARB/VIT D3 500/200 TABLET PO SCH (08:31)
[2018-08-13] MEDS: FAMOTIDINE 20 MG TABLET PO SCH ×2 (08:31→21:40)
[2018-08-13] MEDS: SERTRALINE 50 MG TABLET. PO SCH (08:31)
[2018-08-13] MEDS: MEMANTINE 10 MG TABLET. PO SCH ×2 (08:31→21:41)
[2018-08-13] MEDS: CHOLECALCIFEROL (VITAMIN D3) 1,000 UNIT TABLET PO SCH (08:32)
[2018-08-13] MEDS: PREGABALIN 75 MG CAPSULE PO SCH (08:32)
[2018-08-13] MEDS: GLUCOSAMINE 500 MG CAPSULE PO SCH (08:35)
[2018-08-13] MEDS: VITAMIN B COMPLEX CAPSULE. PO SCH (08:38)
[2018-08-13 18:27] VITALS: BP 107/74
--- NOTE | 2018-08-13 18:44 | PDOC ---
Exam Note: Wesley Note: Please also refer to the separate dictated note~for this date of service dictated separately.~Patient seen individually. Discussed the patient with Nursing staff reviewed the chart.~Reviewed interim history and current functioning. Reviewed vital signs,~Labs/ Radiology~and current medications noted below. Continue current treatment with the changes noted in the dictated addendum note Assessment: Vital Signs: Vital Signs Date Time Temp Pulse Resp B/P (MAP) Pulse Ox O2 Delivery O2 Flow Rate FiO2 08/13/18 18:27 98.1 82 18 107/74 (85) 97 Room Air I&O Intake and Output 08/13/18 07:00 Intake Total 1080 ml Balance 1080 ml Intake Oral 1080 ml # Voids 7 # Bowel Movements 2 Current Medications: Meds: Current Medications Vitamin D (Vitamin D3) 1,000 unit DAILY PO Last administered on 08/13/18at 08: 32; Start 07/28/18 at 09:00 Diclofenac Sodium (Voltaren) 4 joni PRN QID PRN TP PAIN; Start 07/27/18 at 20:30 Losartan Potassium (Cozaar) 50 mg BID PO Last administered on 08/13/18at 08:31 ; Start 07/27/18 at 21:00 Metoprolol Tartrate (Lopressor) 25 mg BID PO Last administered on 08/13/18 08 :30; Start 07/27/18 at 21:00 Pregabalin (Lyrica) 75 mg DAILY PO Last administered on 08/13/18at 08:32; Start 07/28/18 at 09:00 Sertraline HCl (Zoloft) 50 mg DAILY PO Last administered on 08/13/18at 08:31; Start 07/28/18 at 09:00 Tramadol HCl (Ultram) 50 mg PRN Q6HRS PRN PO PAIN Last administered on at 20:55; Start 07/27/18 at 20:30 Acetaminophen (Tylenol) 500 mg PRN Q6HRS PRN PO PAIN / TEMP Last administered on 08/07/18at 16:10; Start 07/27/18 at 20:30 Atorvastatin Calcium (Lipitor) 10 mg QHS PO Last administered on 08/12/18at 21: 06; Start 07/27/18 at 21:00 Calcium/Vitamin D (Oscal D 500mg/ 200uts) 1 tab DAILY PO Last administered on 07/28/18 08:42; Start 07/28/18 at 08:00; Stop 07/28/18 at 10:31; Status DC Donepezil HCl (Aricept) 10 mg QHS PO Last administered on 08/12/18 21:06; Start 07/27/18 at 21:00 Enoxaparin Sodium (Lovenox 60mg Syringe) 60 mg Q12HR SQ Last administered on 08:47; Start 07/27/18 at 21:00; Stop 07/28/18 at 13:03; Status DC Glucosamine Sulfate (Glucosamine) 1,000 mg DAILY PO Last administered on 08:35; Start 07/28/18 at 09:00 Levothyroxine Sodium (Synthroid) 75 mcg DAILY PO Last administered on 08:45; Start 07/28/18 at 09:00; Stop 07/28/18 at 13:00; Status DC Memantine (Namenda) 10 mg BID PO Last administered on 08/13/18 08:31; Start 07/27/18 at 21:00 Multivitamins/ Calcium (Thera-M Plus) 1 tab DAILY PO Last administered on 08/13 08:31; Start 07/28/18 at 09:00 Fish Oil (Fish Oil) 1,000 mg DAILY PO Last administered on 08/13/18 08:30; Start 07/28/18 at 09:00 Vitamin B Complex 1 cap DAILY PO Last administered on 08/12/18 09:59; Start 07/28/18 at 09:00 Warfarin Sodium (Coumadin) 5 mg 1X WARF ONCE PO Last administered on 16:35; Start 07/28/18 at 16:00; Stop 07/28/18 at 16:01; Status DC Warfarin Sodium (Coumadin Per Pharmacy) 1 each PRN DAILY PRN MC SEE COMMENTS Last administered on 08/04/18at 08:37; Start 07/27/18 at 20:45; Stop 08/06/18 at 14:42; Status DC Influenza Virus Vaccine (Afluria Trivalent [id number] Syringe) 0.5 ml ONCE ONCE VAX IM Last administered on 07/30/18at 05:56; Start 07/29/18 at 09:00; Stop 07/29/18 at 09:01; Status DC Calcium/Vitamin D (Oscal D 500mg/ 200uts) 1 tab DAILY PO Last administered on 08/13/18at 08:31; Start 07/29/18 at 09:00 Levothyroxine Sodium (Synthroid) 75 mcg DAILY06 PO Last administered on at 06:06; Start 07/29/18 at 06:00 Enoxaparin Sodium (Lovenox 80mg Syringe) 80 mg Q12HR SQ ; Start 07/28/18 at 21: 00; Stop 07/28/18 at 21:00; Status DC Enoxaparin Sodium (Lovenox 80mg Syringe) 70 mg Q12HR SQ Last administered on at 09:40; Start 07/28/18 at 21:00; Stop 08/01/18 at 09:56; Status DC Famotidine (Pepcid Vial) 20 mg BID IVP ; Start 07/28/18 at 21:00; Stop at 21:00; Status DC Acetaminophen/ Hydrocodone Bitart (Lortab 5/325) 1 tab PRN Q6HRS PRN PO PAIN Last administered on 08/12/18at 22:33; Start 07/28/18 at 16:00 Famotidine (Pepcid) 20 mg BID PO Last administered on 08/13/18at 08:31; Start 07/28/18 at 21:00 Warfarin Sodium (Coumadin) 7.5 mg 1X WARF ONCE PO Last administered on at 16:01; Start 07/29/18 at 16:00; Stop 07/29/18 at 16:01; Status DC Warfarin Sodium (Coumadin) 7.5 mg 1X WARF ONCE PO Last administered on at 15:51; Start 07/30/18 at 16:00; Stop 07/30/18 at 16:01; Status DC Warfarin Sodium (Coumadin) 7.5 mg 1X WARF ONCE PO Last administered on at 16:21; Start 07/31/18 at 16:00; Stop 07/31/18 at 16:01; Status DC Warfarin Sodium (Coumadin - No Dose Today) 1 each 1X WARF ONCE MC ; Start at 16:00; Stop 08/01/18 at 16:01; Status DC Warfarin Sodium (Coumadin) 5 mg DAILY16 PO Last administered on 08/05/18at 16: 38; Start 08/02/18 at 16:00; Stop 08/06/18 at 14:32; Status DC Warfarin Sodium (Coumadin Per Physician) 1 each PRN DAILY PRN MC SEE COMMENTS; Start 08/06/18 at 14:45 Active Scripts Active Reported Vitamin D (Cholecalciferol (Vitamin D3)) 1,000 Unit Tablet 1,000 Unit PO DAILY Tramadol Hcl (Tramadol HCl) 50 Mg Tablet 50 Mg PO PRN Q6HRS PRN Zoloft (Sertraline Hcl) 50 Mg Tablet 50 Mg PO DAILY Metoprolol Tartrate 25 Mg Tablet 25 Mg PO BID Namenda (Memantine Hcl) 10 Mg Tablet 10 Mg PO BID Lyrica (Pregabalin) 75 Mg Capsule 75 Mg PO DAILY Glucosamine (Glucosamine Sulfate 2KCL) 1,000 Mg Tablet 1,000 Mg PO DAILY Gabapentin 800 Mg Tablet 400 Mg PO 0900,1200 Lovenox (Enoxaparin Sodium) 40 Mg/0.4 Ml Disp.syrin 60 Mg SQ BID Aricept (Donepezil Hcl) 10 Mg Tablet 10 Mg PO QHS Cozaar (Losartan Potassium) 50 Mg Tablet 50 Mg PO BID Centrum Silver Women Tablet (Multivits-Min/Iron/FA/Lutein) 1 Each Tablet 1 Each PO DAILY Acetaminophen 500 Mg Tablet 500 Mg PO PRN Q6HRS PRN Vitamin B Complex 1 Each Tablet 1 Each PO DAILY Warfarin Sodium 5 Mg Tablet 5 Mg PO DAILY16 Voltaren (Diclofenac Sodium) 100 Gm Gel..gram. 4 Gm TP PRN QID PRN [place] 3 1,000 Mg Softgel ([place]-3 Fatty Acids/Fish Oil) 1 Each Capsule 1 Each PO DAILY supplement for heart health. Last dose: 03/01 @ 8:54 AM. Next dose: 03/02 AM. Caltrate 600 + D Tablet (Calcium Carbonate/Vitamin D3) 1 Each Tablet 1 Each PO DAILY supplement. Next dose: 03/01 @ 8:54 AM. Next dose: 03/02 AM Tirosint (Levothyroxine Sodium) 75 Mcg Capsule 75 Mcg PO DAILY for thyroid. Last dose: 03/01 @ 5:41 AM. Next dose: 03/02 AM. Lipitor (Atorvastatin Calcium) 10 Mg Tablet 10 Mg PO QHS For high cholesterol. Last dose: 02/28 @ 16:13 PM. Next dose: 03/01 @ 4 PM. I have reviewed the current psychotropics carefully including drug interactions. Risk benefit ratio favors no change other than as noted in my dictated progress note. Diagnosis: Problems: (1) Major depressive disorder, recurrent episode (2) Anxiety disorder (3) Recurrent falls KRYSTA JARVIS MD Aug 13, 2018 18:43
[2018-08-13] MEDS: DONEPEZIL HCL 10 MG TABLET PO SCH (21:40)
[2018-08-13] MEDS: ATORVASTATIN CALCIUM 10 MG TABLET. PO SCH (21:41)
[2018-08-13 21:45] VITALS: BP 124/68
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
[2018-08-14 06:27] VITALS: BP 124/88
[2018-08-14] MEDS: LEVOTHYROXINE 75 MCG TABLET PO SCH (06:30)
[2018-08-14] MEDS: OMEGA-3 FATTY ACIDS/FISH OIL 1,000 MG CAPSULE. PO SCH (09:16)
[2018-08-14] MEDS: VITAMIN B COMPLEX CAPSULE. PO SCH (09:16)
[2018-08-14] MEDS: PREGABALIN 75 MG CAPSULE PO SCH (09:19)
[2018-08-14] MEDS: CHOLECALCIFEROL (VITAMIN D3) 1,000 UNIT TABLET PO SCH (09:20)
[2018-08-14] MEDS: CALCIUM CARB/VIT D3 500/200 TABLET PO SCH (09:20)
[2018-08-14] MEDS: FAMOTIDINE 20 MG TABLET PO SCH ×2 (09:20→21:11)
[2018-08-14] MEDS: MEMANTINE 10 MG TABLET. PO SCH ×2 (09:20→21:11)
[2018-08-14] MEDS: SERTRALINE 50 MG TABLET. PO SCH (09:20)
[2018-08-14] MEDS: MULTIVITAMIN with MINERAL TABLET. PO SCH (09:20)
[2018-08-14] MEDS: LOSARTAN 50 MG TABLET. PO SCH ×2 (09:21→21:11)
[2018-08-14] MEDS: METOPROLOL TART IMMED RELEASE 25 MG TABLET PO SCH ×2 (09:21→21:11)
[2018-08-14] MEDS: GLUCOSAMINE 500 MG CAPSULE PO SCH (09:26)
[2018-08-14 18:33] VITALS: BP 132/66
[2018-08-14] MEDS: DONEPEZIL HCL 10 MG TABLET PO SCH (21:10)
[2018-08-14] MEDS: ATORVASTATIN CALCIUM 10 MG TABLET. PO SCH (21:11)
--- NOTE | 2018-08-14 22:53 | PDOC ---
Exam Note: Wesley Note: Please also refer to the separate dictated note~for this date of service dictated separately.~Patient seen individually. Discussed the patient with Nursing staff reviewed the chart.~Reviewed interim history and current functioning. Reviewed vital signs,~Labs/ Radiology~and current medications noted below. Continue current treatment with the changes noted in the dictated addendum note Assessment: Vital Signs: Vital Signs Date Time Temp Pulse Resp B/P (MAP) Pulse Ox O2 Delivery O2 Flow Rate FiO2 08/14/18 21:11 93 122/59 08/14/18 19:58 Room Air 08/14/18 18:33 97.2 18 97 I&O Intake and Output 08/14/18 07:00 Intake Total 810 ml Balance 810 ml Intake Oral 810 ml # Voids 4 Current Medications: Meds: Current Medications Vitamin D (Vitamin D3) 1,000 unit DAILY PO Last administered on 08/14/18 09: 20; Start 07/28/18 at 09:00 Diclofenac Sodium (Voltaren) 4 joni PRN QID PRN TP PAIN; Start 07/27/18 at 20:30 Losartan Potassium (Cozaar) 50 mg BID PO Last administered on 08/14/18 21:11 ; Start 07/27/18 at 21:00 Metoprolol Tartrate (Lopressor) 25 mg BID PO Last administered on 08/14/18 21 :11; Start 07/27/18 at 21:00 Pregabalin (Lyrica) 75 mg DAILY PO Last administered on 08/14/18 09:19; Start 07/28/18 at 09:00 Sertraline HCl (Zoloft) 50 mg DAILY PO Last administered on 08/14/18 09:20; Start 07/28/18 at 09:00 Tramadol HCl (Ultram) 50 mg PRN Q6HRS PRN PO PAIN Last administered on 20:55; Start 07/27/18 at 20:30 Acetaminophen (Tylenol) 500 mg PRN Q6HRS PRN PO PAIN / TEMP Last administered on 08/07/18at 16:10; Start 07/27/18 at 20:30 Atorvastatin Calcium (Lipitor) 10 mg QHS PO Last administered on 08/14/18at 21: 11; Start 07/27/18 at 21:00 Calcium/Vitamin D (Oscal D 500mg/ 200uts) 1 tab DAILY PO Last administered on 07/28/18 08:42; Start 07/28/18 at 08:00; Stop 07/28/18 at 10:31; Status DC Donepezil HCl (Aricept) 10 mg QHS PO Last administered on 08/14/18 21:10; Start 07/27/18 at 21:00 Enoxaparin Sodium (Lovenox 60mg Syringe) 60 mg Q12HR SQ Last administered on 08:47; Start 07/27/18 at 21:00; Stop 07/28/18 at 13:03; Status DC Glucosamine Sulfate (Glucosamine) 1,000 mg DAILY PO Last administered on 09:26; Start 07/28/18 at 09:00 Levothyroxine Sodium (Synthroid) 75 mcg DAILY PO Last administered on 08:45; Start 07/28/18 at 09:00; Stop 07/28/18 at 13:00; Status DC Memantine (Namenda) 10 mg BID PO Last administered on 08/14/18 21:11; Start 07/27/18 at 21:00 Multivitamins/ Calcium (Thera-M Plus) 1 tab DAILY PO Last administered on 08/14 09:20; Start 07/28/18 at 09:00 Fish Oil (Fish Oil) 1,000 mg DAILY PO Last administered on 08/14/18 09:16; Start 07/28/18 at 09:00 Vitamin B Complex 1 cap DAILY PO Last administered on 08/14/18 09:16; Start 07/28/18 at 09:00 Warfarin Sodium (Coumadin) 5 mg 1X WARF ONCE PO Last administered on 16:35; Start 07/28/18 at 16:00; Stop 07/28/18 at 16:01; Status DC Warfarin Sodium (Coumadin Per Pharmacy) 1 each PRN DAILY PRN MC SEE COMMENTS Last administered on 08/04/18at 08:37; Start 07/27/18 at 20:45; Stop 08/06/18 at 14:42; Status DC Influenza Virus Vaccine (Afluria Trivalent [id number] Syringe) 0.5 ml ONCE ONCE VAX IM Last administered on 10/12/18at 05:56; Start 07/29/18 at 09:00; Stop 07/29/18 at 09:01; Status DC Calcium/Vitamin D (Oscal D 500mg/ 200uts) 1 tab DAILY PO Last administered on 08/14/18at 09:20; Start 07/29/18 at 09:00 Levothyroxine Sodium (Synthroid) 75 mcg DAILY06 PO Last administered on at 06:30; Start 07/29/18 at 06:00 Enoxaparin Sodium (Lovenox 80mg Syringe) 80 mg Q12HR SQ ; Start 07/28/18 at 21: 00; Stop 07/28/18 at 21:00; Status DC Enoxaparin Sodium (Lovenox 80mg Syringe) 70 mg Q12HR SQ Last administered on at 09:40; Start 07/28/18 at 21:00; Stop 08/01/18 at 09:56; Status DC Famotidine (Pepcid Vial) 20 mg BID IVP ; Start 07/28/18 at 21:00; Stop at 21:00; Status DC Acetaminophen/ Hydrocodone Bitart (Lortab 5/325) 1 tab PRN Q6HRS PRN PO PAIN Last administered on 08/12/18at 22:33; Start 07/28/18 at 16:00 Famotidine (Pepcid) 20 mg BID PO Last administered on 08/14/18at 21:11; Start 07/28/18 at 21:00 Warfarin Sodium (Coumadin) 7.5 mg 1X WARF ONCE PO Last administered on at 16:01; Start 07/29/18 at 16:00; Stop 07/29/18 at 16:01; Status DC Warfarin Sodium (Coumadin) 7.5 mg 1X WARF ONCE PO Last administered on at 15:51; Start 07/30/18 at 16:00; Stop 07/30/18 at 16:01; Status DC Warfarin Sodium (Coumadin) 7.5 mg 1X WARF ONCE PO Last administered on at 16:21; Start 07/31/18 at 16:00; Stop 07/31/18 at 16:01; Status DC Warfarin Sodium (Coumadin - No Dose Today) 1 each 1X WARF ONCE MC ; Start at 16:00; Stop 08/01/18 at 16:01; Status DC Warfarin Sodium (Coumadin) 5 mg DAILY16 PO Last administered on 08/05/18at 16: 38; Start 08/02/18 at 16:00; Stop 08/06/18 at 14:32; Status DC Warfarin Sodium (Coumadin Per Physician) 1 each PRN DAILY PRN MC SEE COMMENTS; Start 08/06/18 at 14:45 Active Scripts Active Reported Vitamin D (Cholecalciferol (Vitamin D3)) 1,000 Unit Tablet 1,000 Unit PO DAILY Tramadol Hcl (Tramadol HCl) 50 Mg Tablet 50 Mg PO PRN Q6HRS PRN Zoloft (Sertraline Hcl) 50 Mg Tablet 50 Mg PO DAILY Metoprolol Tartrate 25 Mg Tablet 25 Mg PO BID Namenda (Memantine Hcl) 10 Mg Tablet 10 Mg PO BID Lyrica (Pregabalin) 75 Mg Capsule 75 Mg PO DAILY Glucosamine (Glucosamine Sulfate 2KCL) 1,000 Mg Tablet 1,000 Mg PO DAILY Gabapentin 800 Mg Tablet 400 Mg PO 0900,1200 Lovenox (Enoxaparin Sodium) 40 Mg/0.4 Ml Disp.syrin 60 Mg SQ BID Aricept (Donepezil Hcl) 10 Mg Tablet 10 Mg PO QHS Cozaar (Losartan Potassium) 50 Mg Tablet 50 Mg PO BID Centrum Silver Women Tablet (Multivits-Min/Iron/FA/Lutein) 1 Each Tablet 1 Each PO DAILY Acetaminophen 500 Mg Tablet 500 Mg PO PRN Q6HRS PRN Vitamin B Complex 1 Each Tablet 1 Each PO DAILY Warfarin Sodium 5 Mg Tablet 5 Mg PO DAILY16 Voltaren (Diclofenac Sodium) 100 Gm Gel..gram. 4 Gm TP PRN QID PRN [place] 3 1,000 Mg Softgel ([place]-3 Fatty Acids/Fish Oil) 1 Each Capsule 1 Each PO DAILY supplement for heart health. Last dose: 03/01 @ 8:54 AM. Next dose: 03/02 AM. Caltrate 600 + D Tablet (Calcium Carbonate/Vitamin D3) 1 Each Tablet 1 Each PO DAILY supplement. Next dose: 03/01 @ 8:54 AM. Next dose: 03/02 AM Tirosint (Levothyroxine Sodium) 75 Mcg Capsule 75 Mcg PO DAILY for thyroid. Last dose: 03/01 @ 5:41 AM. Next dose: 03/02 AM. Lipitor (Atorvastatin Calcium) 10 Mg Tablet 10 Mg PO QHS For high cholesterol. Last dose: 02/28 @ 16:13 PM. Next dose: 03/01 @ 4 PM. I have reviewed the current psychotropics carefully including drug interactions. Risk benefit ratio favors no change other than as noted in my dictated progress note. Diagnosis: Problems: (1) Anxiety disorder (2) Recurrent falls (3) Major depressive disorder, recurrent episode KRYSTA JARVIS MD Aug 14, 2018 22:53
[2018-08-15] MEDS: LEVOTHYROXINE 75 MCG TABLET PO SCH (06:05)
[2018-08-15 06:07] VITALS: BP 137/69
[2018-08-15 08:00] VITALS: BP 126/73
[2018-08-15] MEDS: MULTIVITAMIN with MINERAL TABLET. PO SCH (08:07)
[2018-08-15] MEDS: OMEGA-3 FATTY ACIDS/FISH OIL 1,000 MG CAPSULE. PO SCH (08:07)
[2018-08-15] MEDS: SERTRALINE 50 MG TABLET. PO SCH (08:07)
[2018-08-15] MEDS: FAMOTIDINE 20 MG TABLET PO SCH ×2 (08:07→20:53)
[2018-08-15] MEDS: PREGABALIN 75 MG CAPSULE PO SCH (08:07)
[2018-08-15] MEDS: VITAMIN B COMPLEX CAPSULE. PO SCH (08:07)
[2018-08-15] MEDS: CALCIUM CARB/VIT D3 500/200 TABLET PO SCH (08:07)
[2018-08-15] MEDS: METOPROLOL TART IMMED RELEASE 25 MG TABLET PO SCH ×2 (08:08→20:53)
[2018-08-15] MEDS: MEMANTINE 10 MG TABLET. PO SCH ×2 (08:08→20:53)
[2018-08-15] MEDS: LOSARTAN 50 MG TABLET. PO SCH ×2 (08:08→20:54)
[2018-08-15] MEDS: CHOLECALCIFEROL (VITAMIN D3) 1,000 UNIT TABLET PO SCH (08:08)
[2018-08-15] MEDS: GLUCOSAMINE 500 MG CAPSULE PO SCH (08:10)
[2018-08-15 10:03] VITALS: BP 154/75
[2018-08-15] MEDS ORDERED: ONDANSETRON ODT 4 MG TAB.RAPDIS PO PRN (14:30)
[2018-08-15 17:40] VITALS: BP 116/65
[2018-08-15] MEDS: DONEPEZIL HCL 10 MG TABLET PO SCH (20:53)
[2018-08-15] MEDS: ATORVASTATIN CALCIUM 10 MG TABLET. PO SCH (20:53)
[2018-08-16] MEDS: LEVOTHYROXINE 75 MCG TABLET PO SCH (06:20)
[2018-08-16 06:31] VITALS: BP 134/65
[2018-08-16] MEDS: PREGABALIN 75 MG CAPSULE PO SCH (08:46)
[2018-08-16] MEDS: MEMANTINE 10 MG TABLET. PO SCH (08:47)
[2018-08-16] MEDS: CALCIUM CARB/VIT D3 500/200 TABLET PO SCH (08:47)
[2018-08-16] MEDS: VITAMIN B COMPLEX CAPSULE. PO SCH (08:47)
[2018-08-16] MEDS: FAMOTIDINE 20 MG TABLET PO SCH (08:47)
[2018-08-16] MEDS: MULTIVITAMIN with MINERAL TABLET. PO SCH (08:47)
[2018-08-16] MEDS: METOPROLOL TART IMMED RELEASE 25 MG TABLET PO SCH (08:47)
[2018-08-16] MEDS: SERTRALINE 50 MG TABLET. PO SCH (08:47)
[2018-08-16] MEDS: CHOLECALCIFEROL (VITAMIN D3) 1,000 UNIT TABLET PO SCH (08:47)
[2018-08-16 08:48] VITALS: BP 134/65
[2018-08-16] MEDS: LOSARTAN 50 MG TABLET. PO SCH (08:48)
[2018-08-16] MEDS: GLUCOSAMINE 500 MG CAPSULE PO SCH (08:48)
[2018-08-16] MEDS: OMEGA-3 FATTY ACIDS/FISH OIL 1,000 MG CAPSULE. PO SCH (08:55)
--- NOTE | 2018-08-16 09:30 | DISCH ---
HOME HEALTH DISCHARGE/MEDS DISCHARGE INFORMATION: Condition on Discharge: Stable CODE STATUS: Code Status: Full HOME HEALTH: Face to Face: I certify this patient is under my care and that I, or a nurse practitioner or physician's care management assistant working with me, had a face to face encounter that meets the physician face to face encounter requirements with this patient on [Date]. Medical Condition(s): Dementia, Falls, FX, S/P Joint Replacement Physical Therapy For: Evalulation/Treatment Occupational Therapy For: Evaluation/Treatment POST DISCHARGE ORDERS: Activity Instructions for Disc: Resume previous activity DIET AFTER DISCHARGE: Regular FOLLOW UP: Follow up with: PCP TREATMENT/EQUIPMENT ORDERS: Adaptive Equipment Issued: Walker CERTIFICATION STATEMENT: Certification Statement: Based on the above finding, I certify that this patient is confined to the home and needs intermittent nursing home care, physical therapy and/or speech therapy, or continues to need occupational therapy.~ This patient is under my care, and I have initiated the establishment of the plan of care.~ This patient will be followed by myself or a community physician who will periodically review the plan of care. DISCHARGE MEDICATIONS: Home Meds Reported Medications Cholecalciferol (Vitamin D3) (VITAMIN D) 1,000 Unit Tablet, 1000 UNIT PO DAILY, TAB 07/27/18 Tramadol Hcl (TRAMADOL HCL) 50 Mg Tablet, 50 MG PO PRN Q6HRS PRN for PAIN, TAB 07/27/18 Sertraline Hcl (ZOLOFT) 50 Mg Tablet, 50 MG PO DAILY for ANTI-DEPRESSANT, TAB 0 Refills 07/27/18 Metoprolol Tartrate (METOPROLOL TARTRATE) 25 Mg Tablet, 25 MG PO BID for FOR HYPERTENSION, #30 TAB 0 Refills 07/27/18 Memantine Hcl (NAMENDA) 10 Mg Tablet, 10 MG PO BID, TAB 07/27/18 Pregabalin (LYRICA) 75 Mg Capsule, 75 MG PO DAILY, CAP 07/27/18 Glucosamine Sulfate 2KCL (GLUCOSAMINE) 1,000 Mg Tablet, 1000 MG PO DAILY, TAB 07/27/18 Gabapentin (GABAPENTIN) 800 Mg Tablet, 400 MG PO 0900,1200, TAB 07/27/18 Enoxaparin Sodium (LOVENOX) 40 Mg/0.4 Ml Disp.syrin, 60 MG SQ BID, DIS.SYR 07/27/18 Donepezil Hcl (ARICEPT) 10 Mg Tablet, 10 MG PO QHS, TAB 07/27/18 Losartan Potassium (COZAAR) 50 Mg Tablet, 50 MG PO BID, TAB 07/27/18 Multivits-Min/Iron/FA/Lutein (Centrum Silver Women Tablet) 1 Each Tablet, 1 EACH PO DAILY, TAB 07/27/18 Acetaminophen (ACETAMINOPHEN) 500 Mg Tablet, 500 MG PO PRN Q6HRS PRN for PAIN, TAB 07/27/18 Vitamin B Complex (VITAMIN B COMPLEX) 1 Each Tablet, 1 EACH PO DAILY, TAB 07/27/18 Warfarin Sodium (WARFARIN SODIUM) 5 Mg Tablet, 5 MG PO DAILY16 for ANTICOAGULANT 02/04/18 Diclofenac Sodium (VOLTAREN) 100 Gm Gel..gram., 4 GM TP PRN QID PRN for PAIN, EACH 02/04/18 [place]-3 Fatty Acids/Fish Oil (OMEGA 3 1,000 MG SOFTGEL) 1 Each Capsule, 1 EACH PO DAILY supplement for heart health. Last dose: 03/01 @ 8:54 AM. Next dose: 03/02 AM. 02/26/14 Calcium Carbonate/Vitamin D3 (CALTRATE 600 + D TABLET) 1 Each Tablet, 1 EACH PO DAILY supplement. Next dose: 03/01 @ 8:54 AM. Next dose: 03/02 AM 02/26/14 Levothyroxine Sodium (TIROSINT) 75 Mcg Capsule, 75 MCG PO DAILY for thyroid. Last dose: 03/01 @ 5:41 AM. Next dose: 03/02 AM. 02/26/14 Atorvastatin Calcium (LIPITOR) 10 Mg Tablet, 10 MG PO QHS For high cholesterol. Last dose: 02/28 @ 16:13 PM. Next dose: 03/01 @ 4 PM. 02/26/14 DIANA LORENZANA MD Aug 16, 2018 09:30
[2018-08-16] MEDS ORDERED: HYDR-2758 PO (09:34)
[2018-08-16] MEDS ORDERED: APIX2.5T PO (09:45)
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
== END 2018-08-16 14:43 | disposition home health service (06) | DRG 555 ==
LOC: LND 18:30
PROVIDERS: ADMIT Neuromusculoskeletal Medicine & OMM; ATTEND Neuromusculoskeletal Medicine & OMM
DX: M25.551 Pain in right hip (principal); E43 Unspecified severe protein-calorie malnutrition; F33.9 Major depressive disorder, recurrent, unspecified; E03.9 Hypothyroidism, unspecified; E11.9 Type 2 diabetes mellitus without complications; E78.5 Hyperlipidemia, unspecified; F41.9 Anxiety disorder, unspecified; K57.90 Diverticulosis of intestine, part unspecified, without perforation or abscess without bleeding; K59.09 Other constipation; G31.84 Mild cognitive impairment of uncertain or unknown etiology; I10 Essential (primary) hypertension; I48.91 Unspecified atrial fibrillation; K21.9 Gastro-esophageal reflux disease without esophagitis; R29.6 Repeated falls; Z68.23 Body mass index [BMI] 23.0-23.9, adult; Z79.01 Long term (current) use of anticoagulants; Z87.440 Personal history of urinary (tract) infections; Z90.710 Acquired absence of both cervix and uterus; Z91.81 History of falling; Z98.41 Cataract extraction status, right eye; Z98.42 Cataract extraction status, left eye; Z79.899 Other long term (current) drug therapy; Z23 Encounter for immunization
CPT/HCPCS: 36415; 73030; 73560; 76881; 80053; 85014; 85018; 85025; 85027; 85610; 85730; 90471; 90756; J1650; 97110; 97116; 97530; 97535; Q2035

== ENCOUNTER 2018-10-19 16:18 | Emergency (ER) | payer MEDICARE, BC ==
[~2018-10-19] VITALS: Ht 170.2 cm; Wt 63.5 kg
[~2018-10-19 16:18] MED LIST changes: +ACET500T68 PO; +APIX2.5T PO; +CHOL10002 PO; +DIGO250T PO; -DIGO250T12 PO; +DONE10TA61 PO; +ENOX40DI SQ; +GABA800T3 PO; +HYDR-2155 PO; -HYDR-2758 PO; +HYDR-3165 PO; -HYDR-971 PO; -LOSA50TA7 PO; +LOSA50TA86 PO; +METO25TA4 PO; +MULT-650 PO; +PREG75CA PO; +SERT50TA PO; +TRAM50TA PO; +VITA1TAB3 PO
--- NOTE | 2018-10-19 17:11 | RAD ---
Pelvis with right hip, 3 views, 10/19/2018: HISTORY: Hip and pelvic pain The bony structures are demineralized. A right total hip prosthesis is in place in satisfactory position. No fracture or dislocation is identified. There is mild spurring at the left hip joint. Degenerative changes are evident in the lower lumbar spine. IMPRESSION: No acute bony abnormality is detected. Electronically signed by: Isauro Martins MD (10/19/2018 5:06 PM) [facility]
[2018-10-19] MEDS ORDERED: HYDROcodone/APAP 5/325MG 1 TAB TABLET PO ONE (17:15)
--- NOTE | 2018-10-19 17:59 | PHYS DOC ---
Past History Past Medical History: A-Fib, Arrhythmia, Constipation, Diverticulitis, Diabetes , GERD, High Cholesterol, Heart Disease, Hypertension, Hypothyroid Past Surgical History: Hysterectomy, Knee Replacement, Oophorectomy, Pacemaker , Other Smoking: Non-smoker Alcohol Use: Occasionally Drug Use: None Adult General Chief Complaint Chief Complaint: HIP PAIN HPI HPI Patient is a 82 year old female with history of right hip replacement in June 2018 brought in by family member because of right hip pain and unable to bearing weight after felt 2 pops on her right hip during movement from chair to a standing position. Patient denies fall and other injuries and states she is able to stand up but it is painful. Patient supposed to use a walker but usually does not use her walker. Patient has appointment for physical therapy tomorrow. Review of Systems Review of Systems Constitutional: Denies fever or chills [] Eyes: Denies change in visual acuity, redness, or eye pain [] HENT: Denies nasal congestion or sore throat [] Respiratory: Denies cough or shortness of breath [] Cardiovascular: No additional information not addressed in HPI [] GI: Denies abdominal pain, nausea, vomiting, bloody stools or diarrhea [] : Denies dysuria or hematuria [] Musculoskeletal: Denies back pain, reports joint pain [] Integument: Denies rash or skin lesions [] Neurologic: Denies headache, focal weakness or sensory changes [] Endocrine: Denies polyuria or polydipsia [] All other systems were reviewed and found to be within normal limits, except as documented in this note. Current Medications Current Medications Current Medications Medications (Trade) Dose Ordered Sig/Monty Start Time Stop Time Status Last Admin Dose Admin Acetaminophen/ Hydrocodone Bitart (Lortab 5/325) 1 tab 1X ONCE 10/19/18 17:15 10/19/18 17:16 DC 10/19/18 17:28 1 TAB Fentanyl Citrate (Fentanyl 2ml Vial) 50 mcg 1X ONCE 10/19/18 17:15 10/19/18 17:15 DC Allergies Allergies Allergies Coded Allergies Type Severity Reaction Last Updated Verified Penicillins Allergy Intermediate 06/22/17 Yes adhesive tape Allergy Intermediate 06/22/17 Yes aspartame Allergy Intermediate 02/27/14 Yes latex Allergy Intermediate 02/26/14 Yes metformin Allergy Intermediate 06/22/17 Yes sulfur Allergy Intermediate 02/26/14 Yes titanium Allergy Intermediate 02/26/14 Yes Physical Exam Physical Exam Constitutional: Well developed, well nourished, no acute distress, non-toxic appearance. [] HENT: Normocephalic, atraumatic, bilateral external ears normal, oropharynx moist, no oral exudates, nose normal. [] Eyes: PERRLA, EOMI, conjunctiva normal, no discharge. [] Neck: Normal range of motion, no tenderness, supple, no stridor. [] Cardiovascular:Heart rate regular rhythm, no murmur [] Lungs & Thorax: Bilateral breath sounds clear to auscultation [] Abdomen: Bowel sounds normal, soft, no tenderness, no masses, no pulsatile masses. [] Skin: Warm, dry, no erythema, no rash. [] Back: No tenderness, no CVA tenderness. [] Extremities: Right hip without deformity, no external rotation or shortening of right hip, normal flexion and extension of hip with marked pain, no tenderness, no cyanosis, no clubbing, no edema. [] Neurologic: Alert and oriented X 3, normal motor function, normal sensory function, no focal deficits noted. [] Psychologic: Affect normal, judgement normal, mood normal. [] Current Patient Data Vital Signs Vital Signs Date Time Temp Pulse Resp B/P (MAP) Pulse Ox O2 Delivery O2 Flow Rate FiO2 10/19/18 17:28 20 95 10/19/18 16:18 98.1 86 Room Air Lab Results Laboratory Tests Test 10/19/18 17:17 Glucose (Fingerstick) 91 mg/dL (70-99) EKG EKG [] Radiology/Procedures Radiology/Procedures [address] [address] IMAGING REPORT Signed PATIENT: JESUS LEON ACCOUNT: [id number] : 1935 LOCATION: ER AGE: 82 SEX: F EXAM STATUS: REG ER ORD. PHYSICIAN: TIM PETERS MD REASON: injury PROCEDURE: HIP RIGHT 2V WITH PELVIS Pelvis with right hip, 3 views, 10/19/2018: HISTORY: Hip and pelvic pain The bony structures are demineralized. A right total hip prosthesis is in place in satisfactory position. No fracture or dislocation is identified. There is mild spurring at the left hip joint. Degenerative changes are evident in the lower lumbar spine. IMPRESSION: No acute bony abnormality is detected. Electronically signed by: Isauro Ingram MD (10/19/2018 5:06 PM) [facility] DICTATED AND SIGNED BY: ISAURO INGRAM MD DATE: 10/19/18 [id number] CC: SAUL ANN MD; TIM PETERS MD ~ Course & Med Decision Making Course & Med Decision Making Pertinent Labs and Imaging studies reviewed. (See chart for details) Evaluation of patient in ER showed 82-year-old female patient with history of previous right hip replacement complaining of painful movement of right hip after felt to pop in her right hip. Patient had unremarkable physical exam and x -ray of hip and after taking hydrocodone felt better and ambulated with a walker. Patient's family member feels comfortable to take her home and follow- up with her primary care physician and physical therapy appointment. Dragon Disclaimer Dragon Disclaimer This electronic medical record was generated, in whole or in part, using a voice recognition dictation system. Departure Departure: Impression: Primary Impression: Strain of right hip Disposition: HOME, SELF-CARE (at 1756) Condition: IMPROVED Referrals: SAUL ANN MD (PCP) Patient Instructions: Hip Injury Additional Instructions: Use walker all the time Follow-up with your physical therapy appointment tomorrow Continue home pain medication TIM PETERS MD Oct 19, 2018 17:59
[2018-10-19 18:00] VITALS: BP 174/89
== END 2018-10-19 18:05 | disposition home or self-care (01) ==
LOC: ER 16:18
DX: S76.011A Strain of muscle, fascia and tendon of right hip, initial encounter (principal); I48.91 Unspecified atrial fibrillation; E11.9 Type 2 diabetes mellitus without complications; K21.9 Gastro-esophageal reflux disease without esophagitis; E78.00 Pure hypercholesterolemia, unspecified; I11.9 Hypertensive heart disease without heart failure; E03.9 Hypothyroidism, unspecified; Z96.641 Presence of right artificial hip joint; Z95.0 Presence of cardiac pacemaker; Z88.0 Allergy status to penicillin; Z88.8 Allergy status to other drugs, medicaments and biological substances; Z91.040 Latex allergy status; Z88.2 Allergy status to sulfonamides; Z88.1 Allergy status to other antibiotic agents; X50.9XXA Other and unspecified overexertion or strenuous movements or postures, initial encounter; Y93.89 Activity, other specified; Y92.89 Other specified places as the place of occurrence of the external cause; Y99.8 Other external cause status
CPT/HCPCS: 73502; 82947; 99284

== ENCOUNTER 2019-05-16 17:03 | Inpatient (IN) | payer MEDICARE, BC ==
[~2019-05-16] VITALS: Ht 170.2 cm; Wt 75.3 kg
[~2019-05-16 17:03] MED LIST changes: +CYAN-25 PO; -CYAN10005 PO; -GABA800T3 PO; +GABA800T5 PO
--- NOTE | 2019-05-16 17:35 | EKG ---
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
--- NOTE | 2019-05-16 17:52 | PHYS DOC ---
Past History Past Medical History: A-Fib, Arrhythmia, Constipation, Diverticulitis, Diabetes, GERD, High Cholesterol, Heart Disease, Hypertension, Hypothyroid Past Surgical History: Hysterectomy, Knee Replacement, Oophorectomy, Pacemaker, Other Smoking: Non-smoker Alcohol Use: None Drug Use: None Adult General Chief Complaint Chief Complaint: ABDOMINAL PAIN HPI HPI 83-year-old female presents with lower abdominal pain. The patient was feeling fine yesterday. She was fine most of this morning. While she was sitting around the house, she started to have intense sharp pain in her lower abdomen, worse on the left than the right. These episodes are moderate to severe and last 1-2 minutes. Then it completely goes away. These episodes are happening all afternoon so she came to the hospital for evaluation. She denies dysuria or urinary frequency. She had a normal bowel movement this morning. She does have a history of diverticulitis. It is been several years. She denies fever or chills. She denies nausea or vomiting. Review of Systems Review of Systems Constitutional: Denies fever or chills [] Eyes: Denies change in visual acuity, redness, or eye pain [] HENT: Denies nasal congestion or sore throat [] Respiratory: Denies cough or shortness of breath [] Cardiovascular: No additional information not addressed in HPI [] GI: LLQ abdominal pain. Denies nausea, vomiting, bloody stools or diarrhea [] : Denies dysuria or hematuria [] Musculoskeletal: Denies back pain or joint pain [] Integument: Denies rash or skin lesions [] Neurologic: Denies headache, focal weakness or sensory changes [] Endocrine: Denies polyuria or polydipsia [] All other systems were reviewed and found to be within normal limits, except as documented in this note. Allergies Allergies Allergies Coded Allergies Type Severity Reaction Last Updated Verified Penicillins Allergy Intermediate 06/22/17 Yes adhesive tape Allergy Intermediate 06/22/17 Yes aspartame Allergy Intermediate 02/27/14 Yes latex Allergy Intermediate 02/26/14 Yes metformin Allergy Intermediate 06/22/17 Yes sulfur Allergy Intermediate 02/26/14 Yes titanium Allergy Intermediate 02/26/14 Yes Physical Exam Physical Exam Constitutional: Well developed, well nourished, no acute distress, non-toxic appearance. [] HENT: Normocephalic, atraumatic, bilateral external ears normal, oropharynx moist, no oral exudates, nose normal. [] Eyes: PERRLA, EOMI, conjunctiva normal, no discharge. [] Neck: Normal range of motion, no tenderness, supple, no stridor. [] Cardiovascular:Heart rate regular rhythm, no murmur [] Lungs & Thorax: Bilateral breath sounds clear to auscultation [] Abdomen: Bowel sounds normal, soft, left lower quadrant tenderness, no masses, no pulsatile masses. [] Skin: Warm, dry, no erythema, no rash. [] Back: No tenderness, no CVA tenderness. [] Extremities: No tenderness, no cyanosis, no clubbing, ROM intact, no edema. [] Neurologic: Alert and oriented X 3, normal motor function, normal sensory function, no focal deficits noted. [] Psychologic: Affect normal, judgement normal, mood normal. [] Current Patient Data Vital Signs Vital Signs Date Time Temp Pulse Resp B/P (MAP) Pulse Ox O2 Delivery O2 Flow Rate FiO2 05/16/19 17:24 98.2 84 16 95 Room Air EKG EKG Irregular rhythm, rate 77, normal axis, no ST elevations or depressions, atrial fibrillation.[] Radiology/Procedures Radiology/Procedures [] Course & Med Decision Making Course & Med Decision Making Pertinent Labs and Imaging studies reviewed. (See chart for details) The patient's EKG has a regular rhythm and no P waves. Rate controlled A. fib. Otherwise unremarkable. Her labs and CT scan are pending I am signing the patient out to Dr. Mcmullen at 1800 who will determine her final disposition. [] Dragon Disclaimer Dragon Disclaimer This electronic medical record was generated, in whole or in part, using a voice recognition dictation system. Departure Departure: Referrals: SAUL ANN MD (PCP) BERNARD RINCON DO May 16, 2019 17:52
[2019-05-16] MEDS ORDERED: IOHEXOL 300 MG/ML 75 ML VIAL. IV ONE (18:00)
[2019-05-16 18:11] LABS: BASO % 0 % (0-3); EOS # 0.1 x10^3/uL (0.0-0.7); EOS % 3 % (0-3); HEMATOCRIT 39.1 % (36.0-47.0); HEMOGLOBIN 12.6 g/dL (12.0-15.5); LYMPH # 1.2 x10^3/uL (1.0-4.8); LYMPH % 25 % (24-48); MEAN CORPUSCULAR HEMOGLOBIN 30 pg (25-35); MEAN CORPUSCULAR HGB CONC 32 g/dL (31-37); MEAN CORPUSCULAR VOLUME 92 fL (79-100); MONO # 0.5 x10^3/uL (0.0-1.1); MONO % 9 % (0-9); NEUT # 3.1 x10^3uL (1.8-7.7); NEUT % 63 % (31-73); PLATELET COUNT 220 x10^3/uL (140-400); RED BLOOD COUNT 4.27 x10^6/uL (3.50-5.40); WHITE BLOOD COUNT 4.9 x10^3/uL (4.0-11.0)
[2019-05-16 18:11] LABS: BILIRUBIN,URINE NEG (NEG); CLARITY,URINE HAZY; COLOR,URINE YELLOW; GLUCOSE,URINE NEG (NEG)
[2019-05-16 18:12] LABS: BACTERIA,URINE FEW /HPF (0-FEW); NITRITE,URINE NEG (NEG); SQUAMOUS EPITHELIAL CELL,UR OCC /LPF; UROBILINOGEN,URINE 0.2 mg/dL (0.2 mg/dL); WBC,URINE 0 /HPF (0-4)
[2019-05-16 18:15] LABS: ALBUMIN 3.3 g/dL (3.4-5.0); ALBUMIN/GLOBULIN RATIO 0.9 (1.0-1.7); CREATININE 0.8 mg/dL (0.6-1.0); GFR 68.5; POTASSIUM 4.3 mmol/L (3.5-5.1); TOTAL BILIRUBIN 0.6 mg/dL (0.2-1.0)
--- NOTE | 2019-05-16 19:49 | RAD ---
Exam: CT abdomen and pelvis with contrast INDICATION: Left lower quadrant pain TECHNIQUE: Sequential axial images through the abdomen and pelvis obtained 70 mL Isovue-370 IV contrast. Sagittal and coronal reformatted images were reconstructed from the axial data and reviewed. Comparisons: None FINDINGS: Heart size is normal. Pacer with leads terminating the right atrium and ventricle. No pericardial effusion. Visualized lung bases are clear. No pleural effusion. Partially calcified hypoattenuating lesion at the right hepatic dome is noted. Mild intrahepatic ductal dilatation is noted. Otherwise, liver, spleen, pancreas and adrenals are unremarkable. Layering higher attenuation material within the gallbladder, likely representing either gallstones or gallbladder sludge. No adjacent inflammatory changes. Kidneys demonstrate symmetric enhancement. No perinephric inflammation or hydronephrosis. No renal or ureteral calculi are identified. Bladder is not well evaluated secondary to streak artifact. No abnormal adnexal masses identified. Diverticulosis of the sigmoid and descending colon with inflammatory changes surrounding the descending colon. The remainder of the large and small bowel are unremarkable. No obstruction. No free intra-abdominal air or fluid. Abdominal aorta has a normal course and caliber. Abdominal vasculature is patent. No enlarged intra-abdominal lymph nodes are identified. Partial visualization of right hip arthroplasty. No suspicious osseous lesions or acute fractures. IMPRESSION: 1. Inflammatory changes surrounding the descending colon and adjacent diverticula, likely representing acute diverticulitis. 2. Mild intrahepatic ductal dilatation without obstructing lesion identified. Recommend correlation with LFTs to determine the need for ERCP 3. Partially calcified linear lesion along the right hepatic dome favored to be posttreatment related. Recommend correlation with procedural history and any prior available imaging for stability. Exposure: One or more of the following in the visualized dose reduction techniques were utilized for this examination: 1. Automated exposure control 2. Adjustment of the MA and/or KV according to patient size 3. Use of iterative of reconstructive technique Electronically signed by: Cynthia Arce MD (05/16/2019 7:46 PM) [employer]
[2019-05-16] MEDS ORDERED: HYOS0.1264 PO (19:59)
[2019-05-16] MEDS ORDERED: SULF1TAB24 PO (19:59)
[2019-05-16] MEDS ORDERED: METR-34 PO (19:59)
--- NOTE | 2019-05-16 20:39 | RAD ---
Exam: Chest one view INDICATION: Chest pain TECHNIQUE: Frontal view of the chest Comparisons: 05/21/2018 FINDINGS: Pacer with leads terminating in the right atrium and ventricle. Replaced cardiac valve sternotomy wires are again noted. The cardiomediastinal silhouette and pulmonary vessels are within normal limits. Strandy opacities within the left lung base. Remaining lungs are clear. IMPRESSION: Strandy opacities in the left lung base which may represent atelectasis however developing consolidation is difficult to exclude. Electronically signed by: Cynthia Arce MD (05/16/2019 8:36 PM) [facility]
--- NOTE | 2019-05-16 21:20 | NUR ---
ADMISSION: The patient, JESUS LEON, 83 y/o, F admitted by DIANA LORENZANA MD, was given written information regarding hospital policies, unit procedures and contact persons. Pt arrived to room 107 via gurney, accompanied by [facility] and nursing sup. Pt able to ambulate with walker from hallway to bed, tolerated well. Dx: Diverticulitis. Pt reports intermittent lower abdominal pain over the past couple days, but has worsened since this AM. Pt is A/Ox3, with mild forgetfulness. Pt lives at home alone, her son Joel is her DPOA. Pt admitted for IV ABT. Discussed POC, pt V/U. Bactrim IV started per order. Call light in reach. Pt denies any current N/V. Reports mild lower abdominal pain, rates 3/10, PRN Tylenol administered. Given box lunch and fresh fluids per request. Call light in reach. Valuables were checked and logged. Left in room with patient.
[2019-05-16 21:30] VITALS: BP 150/83
[2019-05-16] MEDS: IV NORMAL SALINE 1,000ML 1,000 ML IV SCH (21:46)
[2019-05-16] MEDS: SULFAMETHOXAZOLE/TRIMETHOPRIM 20 ML in IV DEXTROSE 5% 500 ML IV SCH (21:46)
[2019-05-16] MEDS: ACETAMINOPHEN 325 MG TABLET PO PRN (21:47)
[2019-05-16] MEDS ORDERED: GLUC1CAP48 PO (22:57)
[2019-05-16] MEDS ORDERED: OMEG-168 PO (22:57)
[2019-05-16] MEDS ORDERED: CETI-282 PO (22:57)
[2019-05-16] MEDS ORDERED: CARV25TA PO (22:57)
[2019-05-16] MEDS ORDERED: ASCO100020 PO (22:57)
[2019-05-16] MEDS ORDERED: cranberry PO (22:57)
[2019-05-16] MEDS ORDERED: LACT1CAP21 PO (22:57)
[2019-05-16] MEDS ORDERED: WARF-31 PO (22:57)
[2019-05-16] MEDS ORDERED: Iron PO (22:57)
[2019-05-16] MEDS ORDERED: NAPR-514 PO (22:57)
[2019-05-17 05:17] VITALS: BP 121/72
[2019-05-17 06:18] LABS: BASO % 0 % (0-3); EOS # 0.1 x10^3/uL (0.0-0.7); EOS % 2 % (0-3); HEMATOCRIT 37.5 % (36.0-47.0); HEMOGLOBIN 12.2 g/dL (12.0-15.5); LYMPH % 18 % (24-48); MEAN CORPUSCULAR HEMOGLOBIN 30 pg (25-35); MEAN CORPUSCULAR HGB CONC 32 g/dL (31-37); MEAN CORPUSCULAR VOLUME 92 fL (79-100); MONO # 0.5 x10^3/uL (0.0-1.1); MONO % 9 % (0-9); NEUT # 4.1 x10^3uL (1.8-7.7); NEUT % 71 % (31-73); PLATELET COUNT 206 x10^3/uL (140-400); RED BLOOD COUNT 4.06 x10^6/uL (3.50-5.40); RED CELL DISTRIBUTION WIDTH 15.6 % (11.5-14.5); WHITE BLOOD COUNT 5.8 x10^3/uL (4.0-11.0)
[2019-05-17] MEDS: IV NORMAL SALINE 1,000ML 1,000 ML IV SCH ×2 (06:19→10:12)
[2019-05-17 06:28] LABS: ALBUMIN 2.8 g/dL (3.4-5.0); ALBUMIN/GLOBULIN RATIO 0.8 (1.0-1.7); CALCIUM 8.8 mg/dL (8.5-10.1); CREATININE 0.9 mg/dL (0.6-1.0); GFR 59.8; POTASSIUM 3.7 mmol/L (3.5-5.1); TOTAL BILIRUBIN 0.7 mg/dL (0.2-1.0); TOTAL PROTEIN 6.5 g/dL (6.4-8.2)
[2019-05-17] MEDS: ACETAMINOPHEN 325 MG TABLET PO PRN (07:09)
[2019-05-17] MEDS: ONDANSETRON PF 4 MG/2 ML VIAL. IV PRN ×3 (07:09→20:39)
--- NOTE | 2019-05-17 08:39 | EKG ---
[address] [address] Test Date: 2019-05-16 Test Time: 17:31:21 Pat Name: JESUS LEON Department: Room: [facility] A Gender: F [employer] T[employer]: [place] : 1935 Requested By: DIANA LORENZANA Order Number: [id number] Reading MD: Measurements Intervals [place] Rate: 77 P: MN: QRS: 26 QRSD: 106 T: -173 QT: 382 QTc: 434 Interpretive Statements IRREGULAR RHYTHM, NO P-WAVE FOUND T ABNORMALITY IN ANTERIOR LEADS LATERAL LEADS INFEROLATERAL LEADS ABNORMAL ECG RI6.01 No previous ECG available for comparison
--- NOTE | 2019-05-17 08:48 | NUR ---
PT feeling ok, pt had some nausea with food, we changed her diet to clear liquids. PT is able to verbalize understanding of poc. Carolina CONNER
[2019-05-17] MEDS: SULFAMETHOXAZOLE/TRIMETHOPRIM 20 ML in IV DEXTROSE 5% 500 ML IV SCH (09:59)
[2019-05-17] MEDS: VITAMIN B COMPLEX CAPSULE. PO SCH ×2 (10:00→10:17)
[2019-05-17] MEDS ORDERED: ACETAMINOPHEN 500 MG TABLET PO PRN (10:00)
[2019-05-17] MEDS: CARVEDILOL 12.5 MG TABLET PO SCH ×2 (10:00→17:00)
[2019-05-17] MEDS: LOSARTAN 25 MG TABLET. PO SCH ×2 (10:00→20:24)
[2019-05-17] MEDS: CETIRIZINE HCL 10 MG TABLET PO SCH (10:12)
[2019-05-17] MEDS: CALCIUM CARB/VIT D3 500/200 TABLET PO SCH (10:12)
[2019-05-17] MEDS: CHOLECALCIFEROL (VITAMIN D3) 1,000 UNIT TABLET PO SCH (10:12)
[2019-05-17] MEDS: MEMANTINE 10 MG TABLET. PO SCH ×2 (10:14→20:25)
[2019-05-17] MEDS: ASCORBIC ACID 500 MG TABLET PO SCH (10:14)
[2019-05-17] MEDS: LEVOTHYROXINE 75 MCG TABLET PO SCH (10:15)
[2019-05-17] MEDS ORDERED: NAPROXEN 500 MG TABLET PO PRN (10:15)
[2019-05-17] MEDS: OMEGA-3 FATTY ACIDS/FISH OIL 1,000 MG CAPSULE. PO SCH (10:17)
[2019-05-17] MEDS: SERTRALINE 50 MG TABLET. PO SCH (10:17)
--- NOTE | 2019-05-17 11:00 | NUR ---
PT has allergy to sulfur. Pt is on scheduled IV bactrim. Questioned patient and asked if she is allergic to sulfur or sulfa antibiotics. They were unsure so went ahead and added sulfa to allergies and discontinued Bactrim. Pt did received 100 cc of antibiotics this am. aCrolina CONNER
[2019-05-17 11:18] VITALS: BP 126/76
[2019-05-17] MEDS: GABAPENTIN 400 MG CAPSULE. PO SCH (12:21)
[2019-05-17 15:45] VITALS: BP 121/76
--- NOTE | 2019-05-17 15:59 | RAD ---
EXAM: Abdomen, single view. HISTORY: Distention and pain. COMPARISON: CT performed one day prior. FINDINGS: Frontal views of the abdomen are obtained. There is a large amount gas and stool throughout the colon. No transition point is seen. There is an incidental right hip arthroplasty and degenerative change primarily at the lower lumbar levels. IMPRESSION: Large amount of gas and stool throughout the colon. Correlate for constipation. The possibility of ileus or a partial distal obstruction is not completely excluded. Electronically signed by: Keyana Mart MD (05/17/2019 3:56 PM) [facility]
[2019-05-17] MEDS ORDERED: WARFARIN 5 MG TABLET. PO SCH (16:00)
--- NOTE | 2019-05-17 16:01 | NUR ---
PT having increased pain and nausea with abd distention. BS x [address] Reis notified. PT given fent for comfort and made NPO. Carolina CONNER
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
--- NOTE | 2019-05-17 18:14 | NUR ---
NSG NOTE; AMB IN [place] ENCOURAGED PT HAS DISTENDED ABD AND NAUSEA. PT AMB WITH WALKER AND HER SON. STATES HAD A LOT OF BELCHING BUT NOT PASSING GAS AT THIS TIME
[2019-05-17 19:23] VITALS: BP 141/75
[2019-05-17] MEDS: LACTOBACILLUS RHAMNOSUS GG 1 CAPSULE. PO SCH (20:24)
[2019-05-17] MEDS: DONEPEZIL HCL 10 MG TABLET PO SCH (20:24)
[2019-05-17 22:06] VITALS: BP 155/85
[2019-05-18] MEDS: IV NORMAL SALINE 1,000ML 1,000 ML IV SCH ×3 (03:00→23:00)
--- NOTE | 2019-05-18 05:12 | PN ---
DATE: PROGRESS NOTE SUBJECTIVE: The patient is sitting in her chair, in no apparent respiratory distress. She continued to complain of abdominal discomfort mostly in the epigastric area as well as both right and left upper quadrant. Denied any nausea or vomiting. Denied any chills, rigors, or fever. PHYSICAL EXAMINATION: GENERAL: When I saw her this afternoon, she was sitting comfortably in her chair, in no apparent respiratory distress. She was slightly pale, but no jaundice, cyanosis, or thyromegaly. No jugular venous distension. No limb edema. VITAL SIGNS: His heart rate was 76, blood pressure 150/83, temperature was 98.1, respiratory rate was 20, and oxygen saturation was 96% on room air. HEAD, EYES, EARS, NOSE AND THROAT: Normocephalic, atraumatic. NECK: Supple. HEART: Showed normal first and second heart sounds with no gallop, rub or murmur. CHEST: Clear to auscultation. No crepitation or rhonchi. ABDOMEN: Distended with tenderness mostly in the epigastric and along the right and left upper quadrant and there is no guarding or rigidity. No organomegaly. All hernial orifice intact. Bowel sounds normal. NEUROLOGIC: She is awake, alert, responding appropriately. All cranial nerves intact. She moves extremities without difficulty. She ambulates without assistance or assistive devices. Her intake over the last 24 hours was 1640. No output was recorded. LABORATORY DATA: Her lab work this morning showed a white cell count of 5800, hemoglobin 12.2, hematocrit 37.5, MCV 92, and a platelet count of 206,000. Her chemistry showed a serum sodium of 140, potassium 3.7, chloride 106, bicarbonate 27, anion gap of 7, BUN 17, creatinine was 0.9. Estimated GFR was 59 mL per minute. Her glucose was 107, calcium was 8.8. Total bilirubin, AST, ALT, alkaline phosphatase were normal. Total protein was 6.5, albumin was 2.8. ASSESSMENT: Acute diverticulitis. PLAN: As the patient's abdomen is more distended and having more pain, the patient was advised to be n.p.o. Her antibiotic was changed to IV Levaquin instead of IV sulfamethoxazole-trimethoprim as she is ALLERGIC TO SULFA, and I will discontinue her Coumadin as well as naproxen and start her on subcutaneous Lovenox in case she requires any surgical intervention. We will start her also on fentanyl citrate 50 mcg IV every 3 hours as well as Zofran and we will decide the further management accordingly. DIANA LORENZANA MD DR: JAIME/hector JOB#: [id number] / [id number]
[2019-05-18] MEDS: LEVOTHYROXINE 75 MCG TABLET PO SCH (05:57)
[2019-05-18 06:03] VITALS: BP 114/67
[2019-05-18 06:39] LABS: ALBUMIN 2.7 g/dL (3.4-5.0); ALBUMIN/GLOBULIN RATIO 0.7 (1.0-1.7); CALCIUM 8.8 mg/dL (8.5-10.1); CREATININE 0.8 mg/dL (0.6-1.0); GFR 68.5; POTASSIUM 3.9 mmol/L (3.5-5.1); TOTAL PROTEIN 6.7 g/dL (6.4-8.2)
[2019-05-18 06:45] LABS: HEMATOCRIT 37.2 % (36.0-47.0); HEMOGLOBIN 12.5 g/dL (12.0-15.5); RED BLOOD COUNT 4.05 x10^6/uL (3.50-5.40); RED CELL DISTRIBUTION WIDTH 15.6 % (11.5-14.5); WHITE BLOOD COUNT 7.3 x10^3/uL (4.0-11.0)
[2019-05-18] MEDS: ONDANSETRON PF 4 MG/2 ML VIAL. IV PRN ×2 (08:30→23:14)
[2019-05-18] MEDS: CALCIUM CARB/VIT D3 500/200 TABLET PO SCH (09:50)
[2019-05-18] MEDS: VITAMIN B COMPLEX CAPSULE. PO SCH (09:50)
[2019-05-18] MEDS: OMEGA-3 FATTY ACIDS/FISH OIL 1,000 MG CAPSULE. PO SCH (09:50)
[2019-05-18] MEDS: ASCORBIC ACID 500 MG TABLET PO SCH (09:51)
[2019-05-18] MEDS: LACTOBACILLUS RHAMNOSUS GG 1 CAPSULE. PO SCH ×2 (09:51→20:16)
[2019-05-18] MEDS: GABAPENTIN 400 MG CAPSULE. PO SCH ×2 (09:51→12:36)
[2019-05-18] MEDS: MEMANTINE 10 MG TABLET. PO SCH ×2 (09:51→20:16)
[2019-05-18] MEDS: CHOLECALCIFEROL (VITAMIN D3) 1,000 UNIT TABLET PO SCH (09:52)
[2019-05-18] MEDS: CETIRIZINE HCL 10 MG TABLET PO SCH (09:52)
[2019-05-18] MEDS: LOSARTAN 25 MG TABLET. PO SCH ×2 (09:52→20:17)
[2019-05-18] MEDS: CARVEDILOL 12.5 MG TABLET PO SCH ×2 (09:53→17:00)
[2019-05-18] MEDS: SERTRALINE 50 MG TABLET. PO SCH (09:53)
[2019-05-18 11:09] VITALS: BP 117/65
[2019-05-18] MEDS: POLYETHYLENE GLYCOL 3350 17 GM PACKET. PO SCH (14:30)
[2019-05-18] MEDS ORDERED: BISACODYL 10 MG SUPP.RECT PR PRN (14:30)
[2019-05-18 15:00] VITALS: BP 114/74
[2019-05-18 19:38] VITALS: BP 125/57
--- NOTE | 2019-05-18 19:54 | PN ---
DATE: 05/18/2019 SUBJECTIVE: The patient is sitting comfortably in her chair, in no apparent distress. On questioning her, she denied any complaints. She stated that she is feeling generally better. She has had no nausea, no vomiting. Abdominal pain has largely subsided. She has had multiple bowel movements and no fever. PHYSICAL EXAMINATION: GENERAL: When I examined her, she was pale. No jaundice, cyanosis or thyromegaly. No jugular venous distention. No limb edema. VITAL SIGNS: Her heart rate was 95, blood pressure 114/67, temperature was 98, respiratory rate was 18 and oxygen saturation was 93% on room air. HEAD, EYES, EARS, NOSE AND THROAT: Showed she is normocephalic, atraumatic. NECK: Supple. HEART: Showed normal first and second heart sounds with no gallop, rub or murmur. CHEST: Clear to auscultation. No crepitation or rhonchi. ABDOMEN: Distended, definitely softer, nontender. No guarding or rigidity. No organomegaly. All hernial orifice intact. Bowel sounds normal. NEUROLOGIC: She is awake, alert, responding appropriately. All her cranial nerves intact. She moves extremities without difficulty. She ambulates with a walker. Her intake over the last 24 hours was 1600, no output was recorded. LABORATORY DATA: As of yesterday showed a serum sodium 140, potassium 3.9, chloride 106, bicarbonate 27, anion gap of 7, BUN 12, creatinine 0.8, estimated GFR was 68 mL per minute. Her glucose 135, calcium was 8.8. Total bilirubin, AST, ALT, alkaline phosphatase were normal. Her lactic acid was 0.9. LDH was 191. Total protein was 6.7, albumin 2.7. Her white cell count was 7300, hemoglobin 12.5, hematocrit 37, MCV 92, and platelet count of 197,000. ASSESSMENT: 1. Acute diverticulitis, improving. The patient had no episodes of nausea, vomiting, no abdominal pain, has had multiple bowel movements. Other medical problems include, A. Atrial fibrillation is rate controlled, well anticoagulated. B. Hypertension. C. Hyperlipidemia. D. Chronic constipation. E. Diverticulosis. F. Gastroesophageal reflux disease. G. Type 2 diabetes. H. Hypothyroidism. PLAN: To continue with IV fluid. Continue with IV antibiotic and pain medication, was started on a clear liquid diet and advance as tolerated. If she remains stable by tomorrow, she can be discharged home to continue treatment as an outpatient. DIANA LORENZANA MD DR: JAIME/hector JOB#: [id number] / [id number]
[2019-05-18] MEDS: DONEPEZIL HCL 10 MG TABLET PO SCH (20:16)
[2019-05-18 23:13] VITALS: BP 134/74
[2019-05-19] MEDS: IV NORMAL SALINE 1,000ML 1,000 ML IV SCH (03:50)
[2019-05-19 05:36] VITALS: BP 135/72
[2019-05-19] MEDS: LEVOTHYROXINE 75 MCG TABLET PO SCH (06:17)
[2019-05-19 06:18] LABS: HEMATOCRIT 35.8 % (36.0-47.0); HEMOGLOBIN 11.6 g/dL (12.0-15.5); RED BLOOD COUNT 3.87 x10^6/uL (3.50-5.40); RED CELL DISTRIBUTION WIDTH 15.7 % (11.5-14.5); WHITE BLOOD COUNT 5.3 x10^3/uL (4.0-11.0)
[2019-05-19 06:24] LABS: ALBUMIN 2.6 g/dL (3.4-5.0); ALBUMIN/GLOBULIN RATIO 0.7 (1.0-1.7); CALCIUM 8.3 mg/dL (8.5-10.1); CREATININE 0.8 mg/dL (0.6-1.0); GFR 68.5; POTASSIUM 3.7 mmol/L (3.5-5.1); TOTAL PROTEIN 6.1 g/dL (6.4-8.2)
[2019-05-19] MEDS: CARVEDILOL 12.5 MG TABLET PO SCH ×2 (08:00→17:00)
[2019-05-19] MEDS: POLYETHYLENE GLYCOL 3350 17 GM PACKET. PO SCH (09:00)
[2019-05-19] MEDS: CALCIUM CARB/VIT D3 500/200 TABLET PO SCH (09:00)
[2019-05-19] MEDS: MEMANTINE 10 MG TABLET. PO SCH (09:00)
[2019-05-19] MEDS: CHOLECALCIFEROL (VITAMIN D3) 1,000 UNIT TABLET PO SCH (09:00)
[2019-05-19] MEDS: OMEGA-3 FATTY ACIDS/FISH OIL 1,000 MG CAPSULE. PO SCH (09:00)
[2019-05-19] MEDS: LACTOBACILLUS RHAMNOSUS GG 1 CAPSULE. PO SCH (09:00)
[2019-05-19] MEDS: GABAPENTIN 400 MG CAPSULE. PO SCH ×2 (09:00→12:00)
[2019-05-19] MEDS: CETIRIZINE HCL 10 MG TABLET PO SCH (09:00)
[2019-05-19] MEDS: LOSARTAN 25 MG TABLET. PO SCH (09:00)
[2019-05-19] MEDS: ASCORBIC ACID 500 MG TABLET PO SCH (09:00)
[2019-05-19] MEDS: SERTRALINE 50 MG TABLET. PO SCH (09:00)
[2019-05-19] MEDS ORDERED: IOHEXOL 300 MG/ML 75 ML VIAL. IV ONE (09:30)
[2019-05-19 11:19] VITALS: BP 125/66
--- NOTE | 2019-05-19 13:11 | RAD ---
CT ABD PEL W/ORAL CONTRST ONLY Indication: Possible obstruction Technique: Noncontrast CT imaging was performed of the abdomen pelvis, multiplanar reconstruction images submitted. Oral contrast was given. One or more of the following individualized dose reduction techniques were utilized for this examination: 1. Automated exposure control 2. Adjustment of the mA and/or kV according to patient size 3. Use of iterative reconstruction technique. Comparison: May 16, 2019 Findings: There is some motion. There are trace dependent pleural effusions bilaterally, also some linear likely atelectasis lung bases bilaterally. Note is made of lead from electronic cardiac device. There is not new mild free fluid about the liver and right paracolic gutter also in the dependent pelvis. Fluid in the dependent pelvis appears somewhat more complex with density measurements of about 20 Hounsfield units or greater. There is similar mild right renal caliectasis. There is no significant adrenal nodularity. Accurate evaluation of the abdominal visceral organs is limited without intravenous contrast, no new obvious focal abnormality of the liver, pancreas, spleen. There is some hyperdensity in the gallbladder lumen diffusely on this exam, could be related to vicarious excretion of contrast from previous exam as not as hyperdense on previous exam. Small bowel is not significantly dilated. No free air is identified. There is again scattered colonic diverticulosis greatest of sigmoid and descending colon although also seen ascending colon. There is increased dilatation of the ascending colon at about 9 cm, remainder of the colon not as distended. There is appearance of increased mild diffuse wall thickening of the descending and sigmoid colon. There is now some pneumatosis of the ascending colon. There is some hazy and strandy inflammatory type change about the descending colon to the mid transverse colon, also somewhat increased about the descending colon. There is vacuum disc disease L4-5. There is multilevel lumbar facet degenerative change, negligible anterior spondylolisthesis L3-L4. There is artifact in the pelvis created by right hip arthroplasty. There is osteoarthritic change of left hip. IMPRESSION: 1. There is increased dilatation ascending colon, also some relative wall thickening more diffusely of the colon, evidence of colitis. There is new pneumatosis of the ascending colon. There is new mild free fluid in the abdomen pelvis, somewhat complex density characteristics of fluid in the pelvis. There is again colonic diverticulosis. Small bowel is not significantly dilated. 2. Again trace dependent pleural effusions bilaterally. Electronically signed by: Jake Gutierres MD (05/19/2019 1:08 PM) [id number]
[2019-05-19 15:03] VITALS: BP 132/75
--- NOTE | 2019-05-19 18:31 | NUR ---
Pt transferred to [facility] for gi and surgical consult. Pt left unit in stable condition via gurney accompanied by ems and family. Report called to robert Esquivel.
--- NOTE | 2019-05-19 21:14 | DS ---
DATE OF DISCHARGE: 05/19/2019 DISCHARGE TRANSFER SUMMARY HISTORY AND HOSPITAL COURSE: The patient is an 83-year-old female patient who was admitted originally with abdominal pain that is intense sharp in her lower abdomen, worse in the left than the right. The pain is moderate to severe in the last 1-2 minutes and then it completely goes away. This was happening all afternoon. She came to the Emergency Room. She denied any dysuria or urinary frequency. She had normal bowel movement on the day of admission. She does have a history of diverticulitis, has been several years ago. She denied any fever or chills. Denied any nausea or vomiting. She was extensively investigated in the Emergency Room. Her white cell count was in fact normal. Her lab work was unremarkable. Her chest x-ray was also unremarkable; however, her CT scan of the abdomen and pelvis showed that the patient has inflammatory changes surrounding the descending colon, adjacent diverticula, likely representing acute diverticulitis. She has mild intrahepatic ductal dilatation without obstructing lesion identified and the radiologist recommended correlation with LFTs to determine the need for ERCP. She was started on IV Flagyl as well as Bactrim that was subsequently switched to Levaquin. Unfortunately, the patient continued to complain of abdominal pain, abdominal distention and we did repeat her CT scan today, which showed that the patient has worsening of her finding that increased dilatation of the ascending colon, also some relative wall thickening, more diffusely of the colon, evidence of colitis. There is new pneumatosis of the ascending colon. There is now new mild free fluid in the abdomen and pelvis, somewhat complex density, characteristics fluid in the pelvis. There is again colonic diverticulosis. Small bowel is not significantly dilated. She does have also trace bilateral pleural effusion and given that the patient is not really getting any better and continued to have abdominal pain, abdominal distention and a decision was made to transfer her to [facility] to consult the surgical team as well as the investigative analyst. PHYSICAL EXAMINATION: GENERAL: When I examined her this afternoon, she was resting slightly propped up in bed, in no apparent respiratory distress. She was pale, but no jaundice, cyanosis or thyromegaly. No jugular venous distention. No limb edema. VITAL SIGNS: Her heart rate was 65, blood pressure was 132/75, temperature was 98, respiratory rate was 18 and oxygen saturation was 93%. HEAD, EYES, EARS, NOSE AND THROAT: Showed normocephalic, atraumatic. NECK: Supple. HEART: Showed normal first and second heart sounds with no gallop, rub or murmur. CHEST: Clear to auscultation. No crepitation or rhonchi. ABDOMEN: Her abdomen is markedly distended with diffuse tenderness, mostly in the right flank and right lower quadrant; however, there is no guarding or rigidity. No organomegaly. All hernial orifice intact. Bowel sounds normal. NEUROLOGIC: She is awake, alert, responding appropriately. All cranial nerves intact. She moves extremities without difficulty. She is able to ambulate with a walker. LABORATORY DATA: As of this morning, her white cell count was normal at 5300, hemoglobin 11.6, hematocrit 36, MCV 93 and platelet count of 186,000. Her serum sodium was 140, potassium 3.7, chloride 106, bicarbonate 27, anion gap of 7, BUN 14, creatinine 0.8, estimated GFR was 68 mL per minute. Her glucose 114, calcium was 8.3. Total bilirubin, AST, ALT, alkaline phosphatase were normal. Total protein was 6.2, albumin was 2.6. Her prothrombin time was 15.1, INR 1.5. DISCHARGE MEDICATIONS: Urinalysis was unremarkable. She was transferred to [facility] to continue with all her medication including IV Levaquin as well as IV Flagyl. FINAL DISCHARGE DIAGNOSES: Ischemic colitis versus infectious colitis. Other medical problems include atrial fibrillation, rate controlled, she is off her Coumadin; hypertension; hyperlipidemia; chronic constipation; diverticulosis; gastroesophageal reflux disease; type 2 diabetes and hypothyroidism. DIANA LORENZANA MD DR: JAIME/hector JOB#: [id number] / [id number]
== END 2019-05-19 18:30 | disposition short-term general hospital (02) | DRG 393 ==
LOC: ER 17:03 → 1 SOUTH 20:16
PROVIDERS: ADMIT Internal Medicine; ATTEND Internal Medicine
DX: K55.9 Vascular disorder of intestine, unspecified (principal); E43 Unspecified severe protein-calorie malnutrition; K57.32 Diverticulitis of large intestine without perforation or abscess without bleeding; A09 Infectious gastroenteritis and colitis, unspecified; K21.9 Gastro-esophageal reflux disease without esophagitis; E11.9 Type 2 diabetes mellitus without complications; I48.91 Unspecified atrial fibrillation; I10 Essential (primary) hypertension; E03.9 Hypothyroidism, unspecified; K57.90 Diverticulosis of intestine, part unspecified, without perforation or abscess without bleeding; E78.00 Pure hypercholesterolemia, unspecified; E78.5 Hyperlipidemia, unspecified; K59.09 Other constipation; Z96.659 Presence of unspecified artificial knee joint; Z87.891 Personal history of nicotine dependence; Z90.710 Acquired absence of both cervix and uterus; Z98.41 Cataract extraction status, right eye; Z98.42 Cataract extraction status, left eye; Z91.040 Latex allergy status; Z88.0 Allergy status to penicillin; Z88.8 Allergy status to other drugs, medicaments and biological substances; Z91.048 Other nonmedicinal substance allergy status; Z90.721 Acquired absence of ovaries, unilateral; Z95.0 Presence of cardiac pacemaker; Z68.26 Body mass index [BMI] 26.0-26.9, adult
CPT/HCPCS: 36415; 71045; 74018; 74176; 74177; 80053; 81001; 83605; 83615; 83690; 84484; 85025; 85027; 85610; 93005; J1956; J2405; J3010; J3490; Q9967; 97110; 97116; 97535; 99285-25; J7030

== ENCOUNTER 2019-06-08 16:52 | Emergency (ER) | payer MEDICARE, BC ==
[~2019-06-08] VITALS: Ht 170.2 cm; Wt 72.6 kg
[~2019-06-08 16:52] MED LIST changes: +ASCO100020 PO; +CETI-282 PO; +GLUC1CAP48 PO; +HYOS0.1264 PO; +Iron PO; +LACT1CAP21 PO; +METR-34 PO; +OMEG-168 PO; +SULF1TAB24 PO; +cranberry PO
[2019-06-08] MEDS ORDERED: IOHEXOL 240 MG/ML 50ML VIAL. ONE (17:20)
--- NOTE | 2019-06-08 17:27 | PHYS DOC ---
Past History Past Medical History: A-Fib, Arrhythmia, Constipation, Diverticulitis, Diabetes, GERD, High Cholesterol, Heart Disease, Hypertension, Hypothyroid (ADONIS MULLER DO) Past Surgical History: Hysterectomy, Knee Replacement, Oophorectomy, Pacemaker, Other (ADONIS MULLER DO) Smoking: Non-smoker Alcohol Use: None Drug Use: None (ADONIS MULLER DO) Adult General HPI HPI The patient is a very pleasant 83-year-old female who presents for evaluation of abdominal pain. She states that she was recently admitted from May 16 through May 23 for abdominal pain which and is certainly was thought to be diverticulitis but was later thought to be infectious colitis and then ultimately ischemic colitis. The patient followed up with GI after leaving the hospital and it was still unclear what exactly was going on. Since her discharge on May 23 she has been having some degree of his comfort. Yesterday she was having some vomiting and diarrhea and worsening pain. She denies any fevers or chills, hematemesis, rectal bleeding, back or flank pain, chest pain or shortnes s of breath, dizziness syncope. She is alert and oriented �4, calm, and appears to be no distress time. (ADONIS MULLER DO) Review of Systems Review of Systems Constitutional: Denies fever or chills [] Eyes: Denies change in visual acuity, redness, or eye pain [] HENT: Denies nasal congestion or sore throat [] Respiratory: Denies cough or shortness of breath [] Cardiovascular: No additional information not addressed in HPI [] GI: Denies bloody stools [] current abdominal pain, nausea, vomiting, and diarrhea last night : Denies dysuria or hematuria [] Musculoskeletal: Denies back pain or joint pain [] Integument: Denies rash or skin lesions [] Neurologic: Denies headache, focal weakness or sensory changes [] Endocrine: Denies polyuria or polydipsia [] All other systems were reviewed and found to be within normal limits, except as documented in this note. (ADONIS MULLER DO) Current Medications Current Medications Current Medications Medications (Trade) Dose Ordered Sig/Monty Start Time Stop Time Status Last Admin Dose Admin Fentanyl Citrate (Fentanyl 2ml Vial) 50 mcg 1X ONCE 06/08/19 17:30 06/08/19 17:31 Iohexol (Omnipaque 240 Mg/ml) 50 ml STK-MED ONCE 06/08/19 17:20 06/08/19 17:20 DC Sodium Chloride 500 ml @ 0 mls/hr 1X ONCE 06/08/19 17:30 06/08/19 17:31 (ADONIS MULLER DO) Allergies Allergies Allergies Coded Allergies Type Severity Reaction Last Updated Verified Penicillins Allergy Intermediate 06/22/17 Yes Sulfa (Sulfonamide Antibiotics) Allergy Intermediate Unknown 05/17/19 Yes adhesive tape Allergy Intermediate 06/22/17 Yes aspartame Allergy Intermediate 02/27/14 Yes latex Allergy Intermediate 02/26/14 Yes metformin Allergy Intermediate 06/22/17 Yes sulfur Allergy Intermediate 02/26/14 Yes titanium Allergy Intermediate 02/26/14 Yes (ADONIS MULLER DO) Physical Exam Physical Exam Constitutional: Well developed, well nourished, no acute distress, non-toxic appearance. [] HENT: Normocephalic, atraumatic, bilateral external ears normal, oropharynx moist, no oral exudates, nose normal. [] Eyes: PERRLA, EOMI, conjunctiva normal, no discharge. [] Neck: Normal range of motion, no tenderness, supple, no stridor. [] Cardiovascular:Heart rate regular rhythm, no murmur [] Lungs & Thorax: Bilateral breath sounds clear to auscultation [] Abdomen: Bowel sounds normal, soft, no masses, no pulsatile masses. [] Left lower quadrant tenderness is present, mild distention Skin: Warm, dry, no erythema, no rash. [] Back: No tenderness, no CVA tenderness. [] Extremities: No tenderness, no cyanosis, no clubbing, ROM intact, no edema. [] Neurologic: Alert and oriented X 3, normal motor function, normal sensory function, no focal deficits noted. [] Psychologic: Affect normal, judgement normal, mood normal. [] (ADONIS MULLER DO) Current Patient Data Lab Results Laboratory Tests Test 06/08/19 17:15 06/08/19 18:35 White Blood Count 6.1 x10^3/uL Red Blood Count 4.18 x10^6/uL Hemoglobin 12.9 g/dL Hematocrit 38.8 % Mean Corpuscular Volume 93 fL Mean Corpuscular Hemoglobin 31 pg Mean Corpuscular Hemoglobin Concent 33 g/dL Red Cell Distribution Width 15.0 % Platelet Count 202 x10^3/uL Neutrophils (%) (Auto) 70 % Lymphocytes (%) (Auto) 18 % Monocytes (%) (Auto) 8 % Eosinophils (%) (Auto) 3 % Basophils (%) (Auto) 0 % Neutrophils # (Auto) 4.2 x10^3uL Lymphocytes # (Auto) 1.1 x10^3/uL Monocytes # (Auto) 0.5 x10^3/uL Eosinophils # (Auto) 0.2 x10^3/uL Basophils # (Auto) 0.0 x10^3/uL Sodium Level 142 mmol/L Potassium Level 3.8 mmol/L Chloride Level 105 mmol/L Carbon Dioxide Level 28 mmol/L Anion Gap 9 Blood Urea Nitrogen 23 mg/dL Creatinine 0.9 mg/dL Estimated GFR (Cockcroft-Gault) 59.8 Glucose Level 152 mg/dL Calcium Level 9.0 mg/dL Total Bilirubin 0.7 mg/dL Direct Bilirubin 0.2 mg/dL Aspartate Amino Transf (AST/SGOT) 28 U/L Alanine Aminotransferase (ALT/SGPT) 31 U/L Alkaline Phosphatase 73 U/L Troponin I Quantitative < 0.017 ng/mL Total Protein 6.8 g/dL Albumin 3.2 g/dL Amylase Level 84 U/L Lipase 129 U/L Urine Collection Type Unknown Urine Color Yellow Urine Clarity Hazy Urine pH 6.5 Urine Specific Speed 1.010 Urine Protein Neg Urine Glucose (UA) Neg mg/dL Urine Ketones (Stick) Neg mg/dL Urine Blood Mod Urine Nitrite Neg Urine Bilirubin Neg Urine Urobilinogen Dipstick 0.2 mg/dL Urine Leukocyte Esterase Trace Urine RBC 11-20 /HPF Urine WBC 5-10 /HPF Urine Squamous Epithelial Cells Occ /LPF Urine Bacteria Few /HPF Current Medications Medications (Trade) Dose Ordered Sig/Monty Route PRN Reason Start Time Stop Time Status Last Admin Dose Admin Sodium Chloride 500 ml @ 0 mls/hr 1X ONCE IV 06/08/19 17:30 06/08/19 17:31 DC 06/08/19 17:52 Fentanyl Citrate (Fentanyl 2ml Vial) 50 mcg 1X ONCE IV 06/08/19 17:30 06/08/19 17:31 DC 06/08/19 17:51 Iohexol (Omnipaque 240 Mg/ml) 50 ml STK-MED ONCE .ROUTE 06/08/19 17:20 06/08/19 17:20 DC Iohexol (Omnipaque 300 Mg/ml) 75 ml 1X ONCE IV 06/08/19 18:15 06/08/19 18:16 DC 06/08/19 18:36 (BABS JORDAN MD) EKG EKG [] (ADONIS MULLER DO) Radiology/Procedures Radiology/Procedures [] (ADONIS MULLER DO) Radiology/Procedures [address] [address] IMAGING REPORT Signed PATIENT: JESUS LEONCOUNT: [id number] : 1935 LOCATION: ER AGE: 83 SEX: F EXAM STATUS: REG ER ORD. PHYSICIAN: ADONIS MULLER DO REASON: LLQ abd pain, recent colitis vs diverticulitis [id number] PROCEDURE: CT ABD PELV W/ORAL&IV CONTRAST Exam: CT abdomen and pelvis with contrast INDICATION: Left lower quadrant abdominal pain TECHNIQUE: Sequential axial images through the abdomen and pelvis obtained following the administration of 75 mL of Omni 300 IV contrast. Sagittal and coronal reformatted images were reconstructed from the axial data and reviewed. Comparisons: 05/19/2019 FINDINGS: Heart size is normal. Pacer leads again seen in the right heart. No pericardial effusion. Linear bandlike opacities at the lung bases bilaterally likely representing atelectasis. No pleural effusion or thickening. Liver, spleen, gallbladder and adrenals are unremarkable. Mild pancreatic ductal dilatation is noted. No peripancreatic inflammatory changes or fluid collection. Kidneys demonstrate symmetric enhancement. Several too small to characterize hypoattenuating cystic lesions are noted in the kidneys bilaterally. No renal or ureteral calculi are identified. Bladder is decompressed not well evaluated. Redemonstration of findings of diverticulitis involving the distal descending colon which appears similar when compared to prior exam. No evidence for perforation or abscess. Remainder of the large and small bowel are unremarkable. No obstruction. Trace free fluid noted adjacent to the distal descending colon. No free intra-abdominal air. Abdominal aorta has a normal course and caliber. Abdominal vasculature is patent. No enlarged intra-abdominal lymph nodes are identified. No suspicious osseous lesions or acute fractures. IMPRESSION: 1. Similar findings of diverticulitis at the distal descending colon without evidence of perforation. Colonoscopy posttreatment is recommended to ensure no underlying mass. 2. No pneumatosis. Exposure: One or more of the following in the visualized dose reduction techniques were utilized for this examination: 1. Automated exposure control 2. Adjustment of the MA and/or KV according to patient size 3. Use of iterative of reconstructive technique Electronically signed by: Cytnhia Montero MD (06/08/2019 7:14 PM) [facility] DICTATED AND SIGNED BY: CYNTHIA MONTERO MD DATE: 06/08/191913 CC: ADONIS MULLER DO; SAUL ANN MD; BABS JORDAN MD ~ (BABS JORDAN MD) Course & Med Decision Making Course & Med Decision Making @1800 - Awaiting lab and imaging results. Pt stable. Pt care transferred to Dr. Jordan at this time. (ADONIS MULLER DO) Course & Med Decision Making 2003: As noted by Dr. Muller [facility] care of patient at 1800. I followed up with lab and imaging results. Imaging shows stable findings of diverticulitis without any other significant findings. Lab work shows no elevated white count and patient is afebrile at this time. Patient's condition appears stable at this time. Recommended that patient follow up with Dr. Sutton, the patient's accounting consultant, in the next 2 days for reevaluation. Patient prescribed Zofran as needed for nausea and advised to continue with oral fluids and advancement of diet as tolerated. Given small prescription for [place] to help with occasional breakthrough pain. Advised return to emergency department for any worsening symptoms. Patient family voiced understanding and in agreement with treatment plan. (BABS JORDAN MD) Dragon Disclaimer Dragon Disclaimer This electronic medical record was generated, in whole or in part, using a voice recognition dictation system. (ADONIS MULLER DO) Departure Departure: Impression: Primary Impression: Nausea and vomiting Additional Impressions: History of diverticulitis Abdominal pain Disposition: HOME, SELF-CARE Condition: STABLE Referrals: SAUL ANN MD (PCP) Patient Instructions: Diverticulitis, Nausea and Vomiting Additional Instructions: CT imaging at today's visit showed no new changes from your recent hospitalization. It is recommended that you contact the office of Dr. Propeck tomorrow for follow-up in the next 2-3 days. Return to the emergency department for any worsening symptoms. Scripts Hydrocodone Bit/Acetaminophen (NORCO 5-325 TABLET) 1 Each Tablet 1 TAB PO Q6HRS PRN for PAIN, #15 TAB Prov: BABS JORDAN MD 06/08/19 Ondansetron (ONDANSETRON ODT) 4 Mg Tab.rapdis 1 TAB PO Q8HRS PRN for NAUSEA/VOMITING, #16 TAB Prov: BABS JORDAN MD 06/08/19 Problem Qualifiers Primary Impression: Nausea and vomiting Vomiting type: unspecified Vomiting Intractability: non-intractable Qualified Codes: R11.2 - Nausea with vomiting, unspecified Additional Impressions: Abdominal pain Abdominal location: lower abdomen, unspecified Qualified Codes: R10.30 - L ower abdominal pain, unspecified ADONIS MULLER DO Jun 08, 2019 17:26 BABS JORDAN MD Jun 08, 2019 20:07
[2019-06-08] MEDS ORDERED: IV NORMAL SALINE 500ML 500 ML IV ONE (17:30)
[2019-06-08 17:46] LABS: BASO % 0 % (0-3); EOS # 0.2 x10^3/uL (0.0-0.7); EOS % 3 % (0-3); HEMATOCRIT 38.8 % (36.0-47.0); HEMOGLOBIN 12.9 g/dL (12.0-15.5); LYMPH # 1.1 x10^3/uL (1.0-4.8); LYMPH % 18 % (24-48); MEAN CORPUSCULAR HEMOGLOBIN 31 pg (25-35); MEAN CORPUSCULAR HGB CONC 33 g/dL (31-37); MEAN CORPUSCULAR VOLUME 93 fL (79-100); MONO # 0.5 x10^3/uL (0.0-1.1); MONO % 8 % (0-9); NEUT # 4.2 x10^3uL (1.8-7.7); NEUT % 70 % (31-73); PLATELET COUNT 202 x10^3/uL (140-400); RED BLOOD COUNT 4.18 x10^6/uL (3.50-5.40); WHITE BLOOD COUNT 6.1 x10^3/uL (4.0-11.0)
[2019-06-08 18:01] LABS: ALBUMIN 3.2 g/dL (3.4-5.0); CREATININE 0.9 mg/dL (0.6-1.0); DIRECT BILIRUBIN 0.2 mg/dL (0.0-0.2); GFR 59.8; POTASSIUM 3.8 mmol/L (3.5-5.1); TOTAL BILIRUBIN 0.7 mg/dL (0.2-1.0); TOTAL PROTEIN 6.8 g/dL (6.4-8.2)
[2019-06-08] MEDS ORDERED: IOHEXOL 300 MG/ML 75 ML VIAL. IV ONE (18:15)
--- NOTE | 2019-06-08 18:24 | EKG ---
[address] [address] Test Date: 2019-06-08 Test Time: 17:27:05 Pat Name: JESUS LEON Department: Room: Gender: F Title Closer: ARIANE : 1935 Requested By: ADONIS MULLER Order Number: [id number] Reading MD: Richard Villa MD Measurements Intervals [place] Rate: 65 P: RI: QRS: -51 QRSD: 166 T: 92 QT: 466 QTc: 485 Interpretive Statements V-PACING Electronically Signed On 06-10-2019 15:49:08 CDT by Richard Villa MD
[2019-06-08 19:06] LABS: BACTERIA,URINE FEW /HPF (0-FEW); BILIRUBIN,URINE NEG (NEG); CLARITY,URINE HAZY; COLOR,URINE YELLOW; GLUCOSE,URINE NEG (NEG); NITRITE,URINE NEG (NEG); SQUAMOUS EPITHELIAL CELL,UR OCC /LPF; UROBILINOGEN,URINE 0.2 mg/dL (0.2 mg/dL)
--- NOTE | 2019-06-08 19:17 | RAD ---
Exam: CT abdomen and pelvis with contrast INDICATION: Left lower quadrant abdominal pain TECHNIQUE: Sequential axial images through the abdomen and pelvis obtained following the administration of 75 mL of Omni 300 IV contrast. Sagittal and coronal reformatted images were reconstructed from the axial data and reviewed. Comparisons: 05/19/2019 FINDINGS: Heart size is normal. Pacer leads again seen in the right heart. No pericardial effusion. Linear bandlike opacities at the lung bases bilaterally likely representing atelectasis. No pleural effusion or thickening. Liver, spleen, gallbladder and adrenals are unremarkable. Mild pancreatic ductal dilatation is noted. No peripancreatic inflammatory changes or fluid collection. Kidneys demonstrate symmetric enhancement. Several too small to characterize hypoattenuating cystic lesions are noted in the kidneys bilaterally. No renal or ureteral calculi are identified. Bladder is decompressed not well evaluated. Redemonstration of findings of diverticulitis involving the distal descending colon which appears similar when compared to prior exam. No evidence for perforation or abscess. Remainder of the large and small bowel are unremarkable. No obstruction. Trace free fluid noted adjacent to the distal descending colon. No free intra-abdominal air. Abdominal aorta has a normal course and caliber. Abdominal vasculature is patent. No enlarged intra-abdominal lymph nodes are identified. No suspicious osseous lesions or acute fractures. IMPRESSION: 1. Similar findings of diverticulitis at the distal descending colon without evidence of perforation. Colonoscopy posttreatment is recommended to ensure no underlying mass. 2. No pneumatosis. Exposure: One or more of the following in the visualized dose reduction techniques were utilized for this examination: 1. Automated exposure control 2. Adjustment of the MA and/or KV according to patient size 3. Use of iterative of reconstructive technique Electronically signed by: Cynthia Arce MD (06/08/2019 7:14 PM) [facility]
[2019-06-08] MEDS ORDERED: HYDR-3165 PO (20:07)
[2019-06-08] MEDS ORDERED: ONDA4TAB12 PO (20:07)
[2019-06-08 20:15] VITALS: BP 161/62
== END 2019-06-08 20:15 | disposition home or self-care (01) ==
LOC: ER 16:52
DX: R11.2 Nausea with vomiting, unspecified (principal); R10.32 Left lower quadrant pain; R19.7 Diarrhea, unspecified; I48.91 Unspecified atrial fibrillation; E11.9 Type 2 diabetes mellitus without complications; K21.9 Gastro-esophageal reflux disease without esophagitis; E78.00 Pure hypercholesterolemia, unspecified; I11.9 Hypertensive heart disease without heart failure; E03.9 Hypothyroidism, unspecified; Z90.710 Acquired absence of both cervix and uterus; Z90.722 Acquired absence of ovaries, bilateral; Z95.0 Presence of cardiac pacemaker; Z88.0 Allergy status to penicillin; Z88.2 Allergy status to sulfonamides; Z88.8 Allergy status to other drugs, medicaments and biological substances; Z91.040 Latex allergy status
CPT/HCPCS: 36415; 74177; 80048; 80076; 81001; 82150; 83690; 84484; 85025; 87086; 93005; 96374; 99285; J3010; J7040; Q9967